=== PATIENT | female | born 1965 | race Hispanic/Latino ===

== ENCOUNTER 2022-04-29 10:07 | Emergency (ER) | payer MEDICARE ==
[2022-04-29] MEDS ORDERED: HALOPERIDOL LACTATE 5 MG/1 ML INJ IM PRN (11:37)
[2022-04-29] MEDS ORDERED: LORazepam 2 MG/ML VIAL IM PRN (11:37)
--- NOTE | 2022-04-29 11:55 | Emergency Department Report ---
ED General Adult HPI - General Chief complaint: Medical Clearance Stated complaint: I am fine, who are you? Time Seen by Provider: 04/29/22 11:14 Source: patient, EMS ( EMS documentation not available at time of chart dictation ), RN notes reviewed, old records reviewed Mode of arrival: Stretcher Limitations: Other (Patient is disorganized and psychotic) - History of Present Illness Initial comments: The patient was evaluated in the emergency department for symptoms described in the history of present illness. He/she was evaluated in the context of the global COVID-19 pandemic, which necessitated consideration that the patient might be at risk for infection with the virus that causes COVID-19. Institutional protocols and algorithms that pertain to the evaluation of patients at risk for COVID-19 are in a state of rapid change based on informa tion released by regulatory bodies including the CDC and federal and state organizations. These policies and algorithms were followed during the patient's care in the emergency department. Please note that these policies, procedures and recommendations changed on a rapid basis. This is a 57-year-old female. The patient is brought to the hospital today by emergency medical services with a signed 1013. As per signed 1013, the patient was noted to be making homicidal threats towards hospice home care coordinator, other residence, and the mobile crisis staff. Severe paranoia and hallucinations. Believes matilde connelly is 18. Not on her medications. The patient was reportedly agitated, and was sedated prior to my evaluation. The patient states that her hips are broken and that she has multiple broken bones. The patient states that she is not currently homicidal or suicidal. The patient first tells me that she lives at home with family. She then tells me that she lives in a custodial. The patient denies headache, neck pain, chest pain, and currently abdominal pain. She denies urinary symptoms. -: This morning - Related Data Home Medications Medication Instructions Recorded Confirmed Last Taken Unobtainable 04/29/22 04/29/22 Unknown Allergies Allergy/AdvReac Type Severity Reaction Status Date / Time No Known Allergies Allergy Verified 04/29/22 11:13 ED Review of Systems ROS: Stated complaint: AMS Other details as noted in HPI Constitutional: denies: fever Eyes: denies: eye discharge ENT: denies: epistaxis Respiratory: denies: cough Cardiovascular: denies: chest pain Gastrointestinal: denies: abdominal pain Musculoskeletal: back pain, myalgia Psychiatric: denies: homicidal thoughts, suicidal thoughts ED Past Medical Hx - Medications Home Medications: Home Medications Medication Instructions Recorded Confirmed Last Taken Type Unobtainable 04/29/22 04/29/22 Unknown History ED Physical Exam - General Limitations: Other (Patient is disorganized and a poor historian) General appearance: in no apparent distress, obese, other (The patient is listless but arousable) - Head Head exam: Present: atraumatic, normocephalic - Eye Eye exam: Present: normal appearance, EOMI. Absent: nystagmus - ENT ENT exam: Present: normal exam, normal orophraynx, mucous membranes moist, normal external ear exam - Neck Neck exam: Present: normal inspection, full ROM. Absent: tenderness, meningismus - Respiratory Respiratory exam: Present: normal lung sounds bilaterally. Absent: respiratory distress, wheezes, rales, rhonchi, stridor, decreased breath sounds - Cardiovascular Cardiovascular Exam: Present: regular rate, normal rhythm, normal heart sounds. Absent: bradycardia, tachycardia, irregular rhythm, systolic murmur, diastolic murmur, rubs, gallop - GI/Abdominal GI/Abdominal exam: Present: soft. Absent: distended, tenderness, guarding, rebound, rigid, pulsatile mass - Extremities Exam Extremities exam: Present: normal inspection, full ROM, other (2+ pulses noted in the bilateral upper and lower extremities. There is no palpable cord. negative Homans sign. Muscular compartments are soft. The pelvis is stable.). Absent: pedal edema, calf tenderness - Back Exam Back exam: Present: normal inspection. Absent: tenderness, CVA tenderness (R), CVA tenderness (L), paraspinal tenderness, vertebral tenderness - Neurological Exam Neurological exam: Present: alert, oriented X3, other (No facial droop. Tongue midline. Extraocular movements intact bilaterally. Facial sensation intact to light touch in V1, V2, V3 distribution bilaterally. 5 and a 5 strength in 4 extremities. Sensation intact to light touch in 4 extremities.) - Psychiatric Psychiatric exam: Present: flat affect. Absent: homicidal ideation, suicidal ideation - Skin Skin exam: Present: warm, dry, intact, normal color. Absent: rash ED Course Vital Signs 04/29/22 04/29/22 04/29/22 10:18 18:47 19:38 Temperature 97.1 F L Pulse Rate 80 62 Respiratory 18 18 Rate Blood Pressure 132/77 148/91 [Left] O2 Sat by Pulse 100 97 99 Oximetry ED Medical Decision Making - Lab Data Result diagrams: 04/29/22 12:26 04/29/22 12:26 Vital Signs 04/29/22 10:18 Temperature 97.1 F L Pulse Rate 80 Respiratory 18 Rate Blood Pressure 132/77 [Left] O2 Sat by Pulse 100 Oximetry Lab Results 04/29/22 04/29/22 04/29/22 Range/Units 12:18 12:26 12:26 WBC (4.5-11.0) K/mm3 RBC (3.65-5.03) M/mm3 Hgb (10.1-14.3) gm/dl Hct (30.3-42.9) % MCV (79-97) fl MCH (28-32) pg MCHC (30-34) % RDW (13.2-15.2) % Plt Count (140-440) K/mm3 Sodium 139 (137-145) mmol/L Potassium 4.2 (3.6-5.0) mmol/L Chloride 103.2 (98-107) mmol/L Carbon Dioxide 25 (22-30) mmol/L Anion Gap 15 mmol/L BUN 8 (7-17) mg/dL Creatinine 0.6 (0.6-1.2) mg/dL Estimated GFR > 60 ml/min BUN/Creatinine Ratio 13 % Glucose 272 H (65-100) mg/dL Calcium 9.4 (8.4-10.2) mg/dL Magnesium 2.00 (1.7-2.3) mg/dL Total Bilirubin 0.30 (0.1-1.2) mg/dL AST 20 (5-40) units/L ALT 25 (7-56) units/L Alkaline Phosphatase 55 (35-129) units/L Total Creatine Kinase 316 H (30-135) units/L Total Protein 6.9 (6.3-8.2) g/dL Albumin 4.4 (3.9-5) g/dL Albumin/Globulin Ratio 1.8 % TSH 3.170 (0.270-4.200) mlU/mL Salicylates (2.8-20.0) mg/dL Acetaminophen (10.0-30.0) ug/mL Phenytoin (10.0-20.0) ug/mL Valproic Acid (50-100) ug/mL [place] (0.0-1.2) mmol/L Plasma/Serum Alcohol (0-0.07) % 04/29/22 04/29/22 04/29/22 Range/Units 12:26 12:26 12:26 WBC (4.5-11.0) K/mm3 RBC (3.65-5.03) M/mm3 Hgb (10.1-14.3) gm/dl Hct (30.3-42.9) % MCV (79-97) fl MCH (28-32) pg MCHC (30-34) % RDW (13.2-15.2) % Plt Count (140-440) K/mm3 Sodium (137-145) mmol/L Potassium (3.6-5.0) mmol/L Chloride (98-107) mmol/L Carbon Dioxide (22-30) mmol/L Anion Gap mmol/L BUN (7-17) mg/dL Creatinine (0.6-1.2) mg/dL Estimated GFR ml/min BUN/Creatinine Ratio % Glucose (65-100) mg/dL Calcium (8.4-10.2) mg/dL Magnesium (1.7-2.3) mg/dL Total Bilirubin (0.1-1.2) mg/dL AST (5-40) units/L ALT (7-56) units/L Alkaline Phosphatase (35-129) units/L Total Creatine Kinase (30-135) units/L Total Protein (6.3-8.2) g/dL Albumin (3.9-5) g/dL Albumin/Globulin Ratio % TSH (0.270-4.200) mlU/mL Salicylates < 0.3 L (2.8-20.0) mg/dL Acetaminophen 5.0 L (10.0-30.0) ug/mL Phenytoin 0.8 L (10.0-20.0) ug/mL Valproic Acid 4.3 L (50-100) ug/mL [place] 0.1 (0.0-1.2) mmol/L Plasma/Serum Alcohol < 0.01 (0-0.07) % 04/29/22 04/29/22 Range/Units 12:26 12:26 WBC 4.6 (4.5-11.0) K/mm3 RBC 4.44 (3.65-5.03) M/mm3 Hgb 13.3 (10.1-14.3) gm/dl Hct 40.2 (30.3-42.9) % MCV 91 (79-97) fl MCH 30 (28-32) pg MCHC 33 (30-34) % RDW 13.5 (13.2-15.2) % Plt Count 184 (140-440) K/mm3 Sodium (137-145) mmol/L Potassium (3.6-5.0) mmol/L Chloride (98-107) mmol/L Carbon Dioxide (22-30) mmol/L Anion Gap mmol/L BUN (7-17) mg/dL Creatinine (0.6-1.2) mg/dL Estimated GFR ml/min BUN/Creatinine Ratio % Glucose (65-100) mg/dL Calcium (8.4-10.2) mg/dL Magnesium (1.7-2.3) mg/dL Total Bilirubin (0.1-1.2) mg/dL AST (5-40) units/L ALT (7-56) units/L Alkaline Phosphatase (35-129) units/L Total Creatine Kinase (30-135) units/L Total Protein (6.3-8.2) g/dL Albumin (3.9-5) g/dL Albumin/Globulin Ratio % TSH 3.170 (0.270-4.200) mlU/mL Salicylates (2.8-20.0) mg/dL Acetaminophen (10.0-30.0) ug/mL Phenytoin (10.0-20.0) ug/mL Valproic Acid (50-100) ug/mL [place] (0.0-1.2) mmol/L Plasma/Serum Alcohol (0-0.07) % - EKG Data -: EKG Interpreted by Or EKG shows normal: sinus rhythm Rate: normal - EKG Data When compared to previous EKG there are: previous EKG unavailable 04/29/22 14:25 The EKG is interpreted at 10: 16 Sinus rhythm, 78 bpm. Left axis deviation. Left anterior fascicular block. QTc 4 6 0 ms. Incomplete right bundle branch block. Motion artifact. This is an abnormal EKG. This is not a STEMI - Radiology Data Radiology results: report reviewed, image reviewed CHEST 2 VIEWS INDICATION / CLINICAL INFORMATION: Chest Pain. COMPARISON: 12/30/2021 FINDINGS: SUPPORT DEVICES: None. HEART / MEDIASTINUM: No significant abnormality. LUNGS / PLEURA: No significant pulmonary or pleural abnormality. No pneumothorax. Lungs remain mildly hyperexpanded. ADDITIONAL FINDINGS: No significant additional findings. IMPRESSION: 1. No acute findings. Signer Name: Leon Bond MD Signed: 04/29/2022 9:46 AM Workstation Name: [id number] - Medical Decision Making Differential diagnosis, including but not limited to: Psychosis, medical clearance for psychiatric placement Assessment and plan: 57-year-old female, who is afebrile, with reassuring vital signs, with a benign and unremarkable physical examination, who arrives with a signed 1013, for psychosis, agitated and homicidal behavior. Her laboratory studies are essentially unremarkable. Her EKG is unremarkable and a chest x-ray is unremarkable. A urinalysis and COVID swab are pending at this time. I have requested that nursing team reconcile home medications. Patient has a known history of psychiatric disease. The emergency room will follow along as the patient provides a urine sample and COVID swab. As needed holding medications are ordered. At this point in time, this patient does not appear to have an immediate medical contraindication to psychiatric admission, evaluation, consultation and placement. Currently awaiting psychiatric input and recommendations. Abdomen is soft and benign. There is no significant bony tenderness. The patient is ambulatory with a steady gait. Critical care attestation.: If time is entered above; I have spent that time in minutes in the direct care of this critically ill patient, excluding procedure time. ED Disposition Clinical Impression: Psychosis, Medical clearance for psychiatric admission Disposition: 63 [facility] Is pt being admited?: No Does the pt Need Aspirin: No Condition: Good
[2022-04-29 12:44] LABS: Hematocrit 40.2 % (30.3-42.9); Hemoglobin 13.3 gm/dl (10.1-14.3); Mean Corpuscular HGB Conc 33 % (30-34); Mean Corpuscular Volume 91 fl (79-97); Platelet Count 184 K/mm3 (140-440); Red Blood Count 4.44 M/mm3 (3.65-5.03); Red Cell Distribution Width 13.5 % (13.2-15.2)
--- NOTE | 2022-04-29 12:55 | XRay Report ---
CHEST 1 VIEW 04/29/2022 12:11 PM INDICATION / CLINICAL INFORMATION: Medical Clearance Psych. COMPARISON: 09/24/2018 FINDINGS: SUPPORT DEVICES: None. HEART / MEDIASTINUM: No significant abnormality. LUNGS / PLEURA: No significant pulmonary or pleural abnormality. No pneumothorax. ADDITIONAL FINDINGS: No significant additional findings. IMPRESSION: 1. No acute findings. Signer Name: Xu Carrera Jr, MD Signed: 04/29/2022 12:50 PM Workstation Name: [id number]
[2022-04-29 13:01] LABS: Alanine Aminotransferase 25 units/L (7-56); Albumin 4.4 g/dL (3.9-5); Blood Urea Nitrogen 8 mg/dL (7-17); Calcium 9.4 mg/dL (8.4-10.2); Hemolysis Index 4
[2022-04-29 13:22] LABS: BUN/Creatinine Ratio 13
[2022-04-29 18:28] LABS: Amphetamine Screen,Urine Negative; Benzodiazepines Screen,Urine Negative; Cannabinoid Screen,Urine Negative; Cocaine Screen,Urine Negative; Methadone Screen,Urine Negative; Opiate Screen,Urine Negative
[2022-04-29 19:56] LABS: Bilirubin,Urine Negative (Negative); Blood,Urine Negative (Negative); Color,Urine Straw (Yellow); Protein,Urine <15 mg/dL mg/dL (Negative); Urobilinogen,Urine < 2.0 mg/dL (<2.0)
--- NOTE | 2022-04-30 09:51 | Consultation ---
History of Present Illness - Reason for Consult Consult date: 04/30/22 Reason for consult: agitation - History of Present Psychiatric Illness HPI: This is a 57-year-old female. The patient is brought to the hospital today by emergency medical services with a signed 1013. As per signed 1013, the patient was noted to be making homicidal threats towards home specialist, other residence, and the mobile crisis staff. Severe paranoia and hallucinations. Believes everyone is 18. Not on her medications. The patient was seen today. She is sitting in a chair in the greco with her eyes closed. She does not respond to any questions. The staff says the patient was trying to fight security and found in the greco naked. The nurse says she was medicated with Lorazepam. I was unable to engage the patient in the evaluation. PAST PSYCHIATRIC HISTORY: Unable to assess PAST MEDICAL HISTORY: None reported Family Psychiatric History: None reported or documented SOCIAL HISTORY Unable to assess REVIEW OF SYSTEMS Unable to assess MENTAL STATUS EXAMINATION Unable to assess Diagnoses: Schizoaffective Disorder Treatment Plan 1013 Olanzapine 7.5mg po daily Trazodone 50mg po qhs Depakote DR 125mg po BID Sitter: per primary Medical: Per primary Disposition: Recommend acute psychiatric inpatient treatment Will follow. Thanks Case staffed by Dr. Miranda Medications and Allergies Allergies Allergy/AdvReac Type Severity Reaction Status Date / Time No Known Allergies Allergy Verified 04/29/22 11:13 Home Medications Medication Instructions Recorded Confirmed Last Taken Type Unobtainable 04/29/22 04/29/22 Unknown History Active Meds: Active Medications Haloperidol Lactate (Haloperidol Lactate 5 Mg/1 Ml Inj) 5 mg IM Q6HR PRN PRN Reason: Agitation Lorazepam (Lorazepam 2 Mg/Ml Vial) 2 mg IM Q4HR PRN PRN Reason: Agitation Last Admin: 04/30/22 07:38 Dose: 2 mg Mental Status Exam - Vital signs Last Vital Signs Temp 98.7 F 04/30/22 09:40 Pulse 96 H 04/30/22 09:40 Resp 18 04/30/22 09:40 BP 124/69 04/30/22 09:40 Pulse Ox 95 04/30/22 09:42 Results Result Diagrams: 04/29/22 12:26 04/29/22 12:26 Abnormal lab results 04/29/22 04/29/22 04/29/22 Range/Units 12:18 12:26 12:26 Glucose 272 H (65-100) mg/dL Total Creatine Kinase 316 H (30-135) units/L Urine WBC (Auto) (0.0-6.0) /HPF Salicylates < 0.3 L (2.8-20.0) mg/dL Acetaminophen (10.0-30.0) ug/mL Phenytoin 0.8 L (10.0-20.0) ug/mL Valproic Acid 4.3 L (50-100) ug/mL 04/29/22 04/29/22 Range/Units 12:26 19:38 Glucose (65-100) mg/dL Total Creatine Kinase (30-135) units/L Urine WBC (Auto) 9.0 H (0.0-6.0) /HPF Salicylates (2.8-20.0) mg/dL Acetaminophen 5.0 L (10.0-30.0) ug/mL Phenytoin (10.0-20.0) ug/mL Valproic Acid (50-100) ug/mL All other labs normal.
--- NOTE | 2022-04-30 11:56 | Event Note ---
Date: 04/30/22 Patient reassessed today and is nonverbal sitting in a chair. Does not respond to questioning. We will keep [address].
[2022-04-30] MEDS: DIVALPROEX DR 125 MG TAB PO SCH ×2 (14:02→22:14)
[2022-04-30 21:54] VITALS: BP 156/90
[2022-04-30] MEDS ORDERED: traZODone 50 MG TAB PO SCH (22:00)
--- NOTE | 2022-05-01 17:14 | Electrocardiograph Report ---
[facility] Test Date: 2022-04-29 Test Time: 10:16:39 Pat Name: PIA ROTH Department: Room: Gender: F Roll Builder: NURSE : 1965 Requested By: BARBARA ALBERTO Order Number: [id number] Reading MD: Minnie Zazueta Measurements Intervals [place] Rate: 78 P: 54 ID: [id number] QRS: -39 QRSD: 92 T: 4 QT: 402 QTc: 460 Interpretive Statements Sinus rhythm Left axis deviation Anteroseptal infarct, age indeterminate No previous ECG available for comparison Electronically Signed On 05-01-2022 17:13:35 EDT by Minnie Zazueta
== END 2022-04-30 22:23 ==
LOC: ED 10:07 → EEVIPCON 10:07 → ED 04-30 22:23
DX: F29 Unspecified psychosis not due to a substance or known physiological condition (principal); Z13.30 Encounter for screening examination for mental health and behavioral disorders, unspecified; Z20.822 Contact with and (suspected) exposure to COVID-19
CPT/HCPCS: 36415; 71045; 80053; 80164; 80178; 80185; 80307; 81001; 82550; 82962; 83735; 84443; 85027; 87086; 93005; 96372; 99285; J2060; U0003; 80320; G0480

== ENCOUNTER 2022-04-30 14:15 | Inpatient (IN) | payer MEDICARE ==
[2022-05-01 06:25] LABS: Basophils % (Auto) 1.2 % (0.0-1.8); Eosinophils # (Auto) 0.1 K/mm3 (0.0-0.4); Eosinophils % (Auto) 2.2 % (0.0-4.3); Hematocrit 40.9 % (30.3-42.9); Hemoglobin 13.4 gm/dl (10.1-14.3); Lymphocytes # (Auto) 1.4 K/mm3 (1.2-5.4); Lymphocytes % (Auto) 35.4 % (13.4-35.0); Mean Corpuscular HGB Conc 33 % (30-34); Mean Corpuscular Volume 91 fl (79-97); Monocytes # (Auto) 0.4 K/mm3 (0.0-0.8); Monocytes % (Auto) 8.9 % (0.0-7.3); Platelet Count 172 K/mm3 (140-440); Red Blood Count 4.51 M/mm3 (3.65-5.03); Red Cell Distribution Width 13.3 % (13.2-15.2)
[2022-05-01 06:46] LABS: Alanine Aminotransferase 27 units/L (7-56); Albumin 4.3 g/dL (3.9-5); Blood Urea Nitrogen 11 mg/dL (7-17); Calcium 8.9 mg/dL (8.4-10.2); Chol/HDL Ratio 3.89 %; HDL Cholesterol 37 mg/dL (40-59); Hemolysis Index 10; LDL Cholesterol,Direct 96 mg/dL (50-130)
[2022-05-01 06:48] LABS: BUN/Creatinine Ratio 18
[2022-05-01] MEDS: INSULIN LISPRO 100 UNIT/ML SUB-Q SCH ×4 (07:30→21:38)
--- NOTE | 2022-05-01 12:19 | History and Physical Report ---
GP History & Physical - History of Present Illness Date of admission: 05/01/22 Date of Examination: 05/01/22 Reason for Admission: Danger to self, Impaired reality testing, Psychopathology interference, Unable to care for self History of Present Illness: HPI 57 year old female with past hx of Bipolar and schizophrenia. Patients states that she is at the hospital because " God put me here". Patient was richardson hernandez in a halfway prior to hospitalization. Patient states that she hears the voices of "God, [place],and the Holy spirit" telling her that they "Love me". She states that the voices have increased in the last couple of days and she has been refusing to take her medications because" God doesn't want me to take them" and the medication was causing her to gain weight. Patient denies SI/HI at this time. Patient states that her appetite and sleep have been good. Patient states that she had been on a number of anti psychotics and mood stabilizers but was not a good historian of what she was currently on. assisted will be called for current medication list. PAST PSYCHIATRIC HISTORY: Diagnoses: Schizophrenia, Bipolar Suicide attempts or Self-harm behavior. No Prior psychiatric hospitalizations: Yes Substance Abuse history:Denies Previous psychiatric medications tried: Yes Outpatient treatment: Yes PAST MEDICAL HISTORY: Family Psychiatric History None reported or documented SOCIAL HISTORY Marital Status: Living Arrangements: assisted Employment Status: Access to guns/weapons:No Education: History of Abuse: Yes Legal History: Denies REVIEW OF SYSTEMS Constitutional: Negative for weight loss ENT: Negative for stridor Respiratory: Negative for cough or hemoptysis All other systems reviewed and are negative Diagnoses: Schizophrenia, Bipolar Treatment Plan Patient will be admitted for inpatient psychiatric evaluation, medication adjustment and close monitoring The patient's behavior, mood, sleep and appetite will be closely monitored. Patient will be enrolled in individual and group therapeutic sessions and encouraged to attend. Patient will be provided with a safe and structured environment. Patient's physical health needs will be addressed by the Hospitalist. Hospitalist Consulted Labs including CBC, CMP, Lipid profile and Hemoglobin A1C ordered Social Assessment will be completed and the Application Processor will work with patient and family to ensure a suitable and safe disposition Medication adjustment will be made as clinically indicated Usual Wellness Congregation/Preservation: - Start Trazodone 50 mg po QHS The patient agreed on the treatment plan, understood the risk, benefit, alternative treatment, potential consequence of no treatment, and gave informed consent. Legal Status: Involuntary Patient Problems: Current Active Problems Advance care planning (Acute) Bipolar 1 disorder (Acute) Diabetes (Acute) HTN (hypertension) (Acute) Preventative health care (Acute) Schizophrenia (Acute) Reaction to Hospitalization: Accepting Medications and Allergies Allergies Allergy/AdvReac Type Severity Reaction Status Date / Time No Known Allergies Allergy Verified 04/29/22 11:13 Home Medications Medication Instructions Recorded Confirmed Last Taken Type Unobtainable 04/29/22 04/29/22 Unknown History Active Meds: Active Medications Insulin Human Lispro (Insulin Lispro 100 Unit/Ml) 0 unit SUB-Q ACHS DAGMAR; Protocol Results - Results Labs/Vitals: Laboratory Last Values WBC 4.1 K/mm3 (4.5-11.0) L 05/01/22 06:16 RBC 4.51 M/mm3 (3.65-5.03) 05/01/22 06:16 Hgb 13.4 gm/dl (10.1-14.3) 05/01/22 06:16 Hct 40.9 % (30.3-42.9) 05/01/22 06:16 MCV 91 fl (79-97) 05/01/22 06:16 MCH 30 pg (28-32) 05/01/22 06:16 MCHC 33 % (30-34) 05/01/22 06:16 RDW 13.3 % (13.2-15.2) 05/01/22 06:16 Plt Count 172 K/mm3 (140-440) 05/01/22 06:16 Lymph % (Auto) 35.4 % (13.4-35.0) H 05/01/22 06:16 [place] % (Auto) 8.9 % (0.0-7.3) H 05/01/22 06:16 Eos % (Auto) 2.2 % (0.0-4.3) 05/01/22 06:16 Baso % (Auto) 1.2 % (0.0-1.8) 05/01/22 06:16 Lymph # (Auto) 1.4 K/mm3 (1.2-5.4) 05/01/22 06:16 [place] # (Auto) 0.4 K/mm3 (0.0-0.8) 05/01/22 06:16 Eos # (Auto) 0.1 K/mm3 (0.0-0.4) 05/01/22 06:16 Baso # (Auto) 0.0 K/mm3 (0.0-0.1) 05/01/22 06:16 Seg Neutrophils % 52.3 % (40.0-70.0) 05/01/22 06:16 Seg Neutrophils # 2.1 K/mm3 (1.8-7.7) 05/01/22 06:16 Sodium 138 mmol/L (137-145) 05/01/22 06:16 Potassium 3.8 mmol/L (3.6-5.0) 05/01/22 06:16 Chloride 103.7 mmol/L (98-107) 05/01/22 06:16 Carbon Dioxide 24 mmol/L (22-30) 05/01/22 06:16 Anion Gap 14 mmol/L 05/01/22 06:16 BUN 11 mg/dL (7-17) 05/01/22 06:16 Creatinine 0.6 mg/dL (0.6-1.2) 05/01/22 06:16 Estimated GFR > 60 ml/min 05/01/22 06:16 BUN/Creatinine Ratio 18 % 05/01/22 06:16 Glucose 206 mg/dL (65-100) H 05/01/22 06:16 POC Glucose 221 mg/dL (70-105) H 05/01/22 11:26 Hemoglobin A1c 9.1 % (4-6) H 05/01/22 06:16 Calcium 8.9 mg/dL (8.4-10.2) 05/01/22 06:16 Total Bilirubin 0.60 mg/dL (0.1-1.2) 05/01/22 06:16 AST 20 units/L (5-40) 05/01/22 06:16 ALT 27 units/L (7-56) 05/01/22 06:16 Alkaline Phosphatase 47 units/L (35-129) 05/01/22 06:16 Total Protein 6.4 g/dL (6.3-8.2) 05/01/22 06:16 Albumin 4.3 g/dL (3.9-5) 05/01/22 06:16 Albumin/Globulin Ratio 2.0 % 05/01/22 06:16 Triglycerides 142 mg/dL (2-149) 05/01/22 06:16 Cholesterol 144 mg/dL (50-199) 05/01/22 06:16 LDL Cholesterol Direct 96 mg/dL (50-130) 05/01/22 06:16 HDL Cholesterol 37 mg/dL (40-59) L 05/01/22 06:16 Cholesterol/HDL Ratio 3.89 % 05/01/22 06:16 TSH 0.672 mlU/mL (0.270-4.200) 05/01/22 06:16 Last Vital Signs Temp 99.3 F 05/01/22 09:16 Pulse 79 05/01/22 09:16 Resp 18 05/01/22 09:16 BP 131/75 05/01/22 09:16 Pulse Ox 92 05/01/22 09:16 Physical Examination - Constitutional Vitals: Vital Signs Temp Pulse Resp BP Pulse Ox 99.3 F 79 18 131/75 92 05/01/22 09:16 05/01/22 09:16 05/01/22 09:16 05/01/22 09:16 05/01/22 09:16 Temperature -Last 24 Hours Temperature 99.3 F Temperature 98.5 F Mental Status Exam - Vital signs Last Vital Signs Temp 99.3 F 05/01/22 09:16 Pulse 79 05/01/22 09:16 Resp 18 05/01/22 09:16 BP 131/75 05/01/22 09:16 Pulse Ox 92 05/01/22 09:16 Physician Certification - Certification Statement Physician Certification Statement: This is an acknowledgement statement that PIA ROTH is a 57 year old F who requires inpatient psychiatric admission for treatment which could reasonably be expected to improve the patient's condition for Estimated period of time patient will need to remain in the hospital: [ ] Plan for post-hospital care: [ ]
--- NOTE | 2022-05-01 13:09 | Consultation ---
History of Present Illness - Reason for Consult Consult date: 05/01/22 Medical Management Requesting physician: JENNIFER KUMAR - History of Present Illness 57 YO Female with Obesity Hypoventilation Syndrome, HTN, DM, Bipolar Disorder, Schizophrenia, Schizoaffective Disorder Consult placed by Dr. Kumar for medical management. Patient seen and evaluated in the recreation room. Patient denies fever, chills, chest pain, palpitation, productive cough, skin rash, rec ent contact, known exposure to COVID-19. Patient appears to be at baseline level of cognition and function. Past History Past Medical History: diabetes, hypertension, other (see hpi) Past Surgical History: Social history: single. denies: smoking, alcohol abuse, prescription drug abuse Family history: diabetes, hypertension Medications and Allergies Allergies Allergy/AdvReac Type Severity Reaction Status Date / Time No Known Allergies Allergy Verified 04/29/22 11:13 Home Medications Medication Instructions Recorded Confirmed Last Taken Type Unobtainable 04/29/22 04/29/22 Unknown History Active Meds: Active Medications Insulin Human Lispro (Insulin Lispro 100 Unit/Ml) 0 unit SUB-Q ACHS [facility]; Protocol Review of Systems Constitutional: no weight loss, no weight gain, no fever, no chills Ears, nose, mouth and throat: no ear pain, no ear discharge, no decreased hearing, no nose pain, no nasal discharge Breasts: no change in shape, no swelling, no mass Cardiovascular: no chest pain, no orthopnea, no rapid/irregular heart beat, no edema, no syncope Respiratory: no cough, no excessive sputum, no hemoptysis, no shortness of breath, no dyspnea on exertion Gastrointestinal: no nausea, no vomiting Genitourinary Female: no pelvic pain, no flank pain, no dysuria, no urinary frequency, no urgency Rectal: no pain, no incontinence, no bleeding Musculoskeletal: no neck stiffness, no neck pain, no arm numbness/tingling Integumentary: no rash, no pruritis, no sores Neurological: no head injury, no transient paralysis, no parathesias, no numbness, no seizures, no syncope Psychiatric: irritability, mood swings, no disorientation, no hallucinations Endocrine: no cold intolerance, no heat intolerance, no excessive thirst, no polydipsia, no excessive sweating Hematologic/Lymphatic: no easy bruising, no easy bleeding, no lymphadenopathy Allergic/Immunologic: no urticaria, no angioedema Exam - Constitutional Vitals: Temp Pulse Resp BP Pulse Ox 99.3 F 79 18 131/75 92 05/01/22 09:16 05/01/22 09:16 05/01/22 09:16 05/01/22 09:16 05/01/22 09:16 General appearance: Present: obese - EENT Eyes: Present: PERRL ENT: hearing intact, clear oral mucosa - Neck Neck: Present: supple, normal ROM - Respiratory Respiratory effort: normal Respiratory: bilateral: CTA - Cardiovascular Heart Sounds: Present: S1 & S2. Absent: rub, click - Extremities Extremities: pulses symmetrical, No edema Peripheral Pulses: within normal limits - Abdominal General gastrointestinal: Present: soft, non-tender, non-distended, normal bowel sounds Female genitourinary: Present: normal - Integumentary Integumentary: Present: clear, warm, dry - Musculoskeletal Musculoskeletal: gait normal, strength equal bilaterally - Psychiatric Psychiatric: cooperative - Neurologic Neurologic: CNII-XII intact, moves all extremities Results - Labs CBC & Chem 7: 05/01/22 06:16 05/01/22 06:16 Labs: Abnormal lab results 05/01/22 05/01/22 05/01/22 Range/Units 06:16 06:16 06:16 WBC 4.1 L (4.5-11.0) K/mm3 Lymph % (Auto) 35.4 H (13.4-35.0) % [place] % (Auto) 8.9 H (0.0-7.3) % Glucose 206 H (65-100) mg/dL POC Glucose (70-105) mg/dL Hemoglobin A1c 9.1 H (4-6) % HDL Cholesterol 37 L (40-59) mg/dL 05/01/22 05/01/22 Range/Units 06:16 11:26 WBC (4.5-11.0) K/mm3 Lymph % (Auto) (13.4-35.0) % [place] % (Auto) (0.0-7.3) % Glucose (65-100) mg/dL POC Glucose 206 H 221 H (70-105) mg/dL Hemoglobin A1c (4-6) % HDL Cholesterol (40-59) mg/dL Assessment and Plan - Patient Problems (1) HTN (hypertension) Current Visit: Yes Status: Acute Qualifiers: Hypertension type: primary hypertension Qualified Code(s): I10 - Essential (primary) hypertension Plan to address problem: Monitor blood pressure every shift, continue medical management. (2) Diabetes Current Visit: Yes Status: Acute Plan to address problem: Consistent carbohydrate diet, Accu-Chek, insulin protocol, hypoglycemia protocol. (3) Bipolar 1 disorder Current Visit: Yes Status: Acute Plan to address problem: Continue medical management, supportive care, behavior change counseling, (4) Schizophrenia Current Visit: Yes Status: Acute Qualifiers: Schizophrenia type: unspecified Qualified Code(s): F20.9 - Schizophrenia, unspecified Plan to address problem: Continue medical management, supportive care. (5) Advance care planning Current Visit: Yes Status: Acute Plan to address problem: Disease education done, care plan discussed, diagnoses discussed, prognosis discussed, patient is full code. Patient acknowledges understanding and agreement with care plan, +30 minutes. (6) Preventative health care Current Visit: Yes Status: Acute Plan to address problem: Patient counseled regarding balanced diet, increase physical activity at discharge, consistent carbohydrate diet, weight reduction, patient instructed to follow-up with primary care physician regarding all age and risk factor appropriate screening test. +30 minutes.
[2022-05-01] MEDS ORDERED: traZODone 50 MG TAB PO PRN (19:25)
[2022-05-01] MEDS: risperiDONE 1 MG TAB PO SCH (21:38)
[2022-05-01] MEDS: traZODone 100 MG TAB PO SCH (21:38)
[2022-05-01] MEDS: PROPRANOLOL 10 MG TAB PO SCH (21:38)
[2022-05-01] MEDS ORDERED: DOXEPIN 10 MG CAP PO SCH (22:00)
[2022-05-02] MEDS: INSULIN LISPRO 100 UNIT/ML SUB-Q SCH ×4 (07:30→21:21)
[2022-05-02] MEDS: metFORMIN 500 MG TAB PO SCH ×2 (08:00→16:46)
[2022-05-02] MEDS: buPROPion XL 150 MG TAB PO SCH (10:30)
[2022-05-02] MEDS: DIVALPROEX DR 500 MG TAB PO SCH (10:30)
[2022-05-02] MEDS: risperiDONE 1 MG TAB PO SCH ×3 (10:30→22:24)
[2022-05-02] MEDS: PROPRANOLOL 10 MG TAB PO SCH ×2 (10:30→21:21)
[2022-05-02] MEDS: FLUoxetine 20 MG CAP PO SCH (10:30)
[2022-05-02] MEDS: HALOPERIDOL LACTATE 5 MG/1 ML INJ IM PRN (16:40)
[2022-05-02] MEDS: LORazepam 2 MG/ML VIAL IM PRN (16:42)
--- NOTE | 2022-05-02 18:06 | Progress Note ---
Subjective Date of service: 05/02/22 Principal diagnosis: Bipolar, schizophrenia Subjective Comment: Date of service: 05/02/22 Principal diagnosis: Bipolar, schizophrenia Subjective Comment: Patient seen today in her room. Patient states that she will not take her medications because "Tyrone told me not to". Patient is also refusing to have her blood sugar checked, and has been aggressive towards the staff. When asked why she wasnt taking her meds she replied " Not taking my medication satan". After that she refused to answer any more questions. No new changes at this time. Medications and Allergies Allergies Allergy/AdvReac Type Severity Reaction Status Date / Time No Known Allergies Allergy Verified 04/29/22 11:13 Home Medications Medication Instructions Recorded Confirmed Last Taken Type Bupropion HCl [Wellbutrin XL] 300 mg PO QAM 05/01/22 05/01/[address] [DepaKOTE DR] 500 mg PO QA 05/01/22 05/01/22 Unknown History Doxepin HCl [Silenor] 6 mg PO QHS 05/01/22 05/01/22 Unknown History FLUoxetine [PROzac] 20 mg PO QDAY 05/01/22 05/01/22 Unknown History diphenhydrAMINE HCL [Allergy] 25 mg PO HS 05/01/22 05/01/22 Unknown History metFORMIN [Glucophage] 500 mg PO BID 05/01/22 05/01/22 Unknown History propranoloL [Inderal] 10 mg PO BID 05/01/22 05/01/22 Unknown History risperiDONE [RisperDAL] 2 mg PO BID 05/01/22 05/01/22 Unknown History traZODone [Desyrel] 100 mg PO QHS 05/01/22 05/01/22 Unknown History Active Meds: Active Medications Bupropion HCl (Bupropion Xl 150 Mg Tab) 300 mg PO QDAY [facility] Last Admin: 05/02/22 10:30 Dose: Not Given Divalproex Sodium (Divalproex Dr 500 Mg Tab) 500 [facility] [place] Last Admin: 05/02/22 10:30 Dose: Not Given Fluoxetine HCl (Fluoxetine 20 Mg Cap) 20 mg PO QDAY [facility] Last Admin: 05/02/22 10:30 Dose: Not Given Haloperidol Lactate (Haloperidol Lactate 5 Mg/1 Ml Inj) 5 mg IM Q6H PRN PRN Reason: Agitation Last Admin: 05/02/22 16:40 Dose: 5 mg Insulin Human Lispro (Insulin Lispro 100 Unit/Ml) 0 unit SUB-Q ACHS [facility]; Protocol Last Admin: 05/02/22 16:46 Dose: Not Given Lorazepam (Lorazepam 2 Mg/Ml Vial) 2 mg IM Q6H PRN PRN Reason: Agitation Last Admin: 05/02/22 16:42 Dose: 2 mg Metformin HCl (Metformin 500 Mg Tab) 500 mg PO BIDDIAB [facility] Last Admin: 05/02/22 16:46 Dose: Not Given Propranolol HCl (Propranolol 10 Mg Tab) 10 mg PO Q12HR [facility] Last Admin: 05/02/22 10:30 Dose: Not Given Risperidone (Risperidone 1 Mg Tab) 2 mg PO BID [facility] Last Admin: 05/02/22 10:30 Dose: Not Given Trazodone HCl (Trazodone 50 Mg Tab) 50 mg PO QHS PRN PRN Reason: Anxiety Trazodone HCl (Trazodone 100 Mg Tab) 100 mg PO QHS [facility] Last Admin: 05/01/22 21:38 Dose: Not Given Results - Results Labs/Vitals: Laboratory Last Values WBC 4.1 K/mm3 (4.5-11.0) L 05/01/22 06:16 RBC 4.51 M/mm3 (3.65-5.03) 05/01/22 06:16 Hgb 13.4 gm/dl (10.1-14.3) 05/01/22 06:16 Hct 40.9 % (30.3-42.9) 05/01/22 06:16 MCV 91 fl (79-97) 05/01/22 06:16 MCH 30 pg (28-32) 05/01/22 06:16 MCHC 33 % (30-34) 05/01/22 06:16 RDW 13.3 % (13.2-15.2) 05/01/22 06:16 Plt Count 172 K/mm3 (140-440) 05/01/22 06:16 Lymph % (Auto) 35.4 % (13.4-35.0) H 05/01/22 06:16 [place] % (Auto) 8.9 % (0.0-7.3) H 05/01/22 06:16 Eos % (Auto) 2.2 % (0.0-4.3) 05/01/22 06:16 Baso % (Auto) 1.2 % (0.0-1.8) 05/01/22 06:16 Lymph # (Auto) 1.4 K/mm3 (1.2-5.4) 05/01/22 06:16 [place] # (Auto) 0.4 K/mm3 (0.0-0.8) 05/01/22 06:16 Eos # (Auto) 0.1 K/mm3 (0.0-0.4) 05/01/22 06:16 Baso # (Auto) 0.0 K/mm3 (0.0-0.1) 05/01/22 06:16 Seg Neutrophils % 52.3 % (40.0-70.0) 05/01/22 06:16 Seg Neutrophils # 2.1 K/mm3 (1.8-7.7) 05/01/22 06:16 Sodium 138 mmol/L (137-145) 05/01/22 06:16 Potassium 3.8 mmol/L (3.6-5.0) 05/01/22 06:16 Chloride 103.7 mmol/L (98-107) 05/01/22 06:16 Carbon Dioxide 24 mmol/L (22-30) 05/01/22 06:16 Anion Gap 14 mmol/L 05/01/22 06:16 BUN 11 mg/dL (7-17) 05/01/22 06:16 Creatinine 0.6 mg/dL (0.6-1.2) 05/01/22 06:16 Estimated GFR > 60 ml/min 05/01/22 06:16 BUN/Creatinine Ratio 18 % 05/01/22 06:16 Glucose 206 mg/dL (65-100) H 05/01/22 06:16 POC Glucose 197 mg/dL (70-105) H 05/02/22 10:03 Hemoglobin A1c 9.1 % (4-6) H 05/01/22 06:16 Calcium 8.9 mg/dL (8.4-10.2) 05/01/22 06:16 Total Bilirubin 0.60 mg/dL (0.1-1.2) 05/01/22 06:16 AST 20 units/L (5-40) 05/01/22 06:16 ALT 27 units/L (7-56) 05/01/22 06:16 Alkaline Phosphatase 47 units/L (35-129) 05/01/22 06:16 Total Protein 6.4 g/dL (6.3-8.2) 05/01/22 06:16 Albumin 4.3 g/dL (3.9-5) 05/01/22 06:16 Albumin/Globulin Ratio 2.0 % 05/01/22 06:16 Triglycerides 142 mg/dL (2-149) 05/01/22 06:16 Cholesterol 144 mg/dL (50-199) 05/01/22 06:16 LDL Cholesterol Direct 96 mg/dL (50-130) 05/01/22 06:16 HDL Cholesterol 37 mg/dL (40-59) L 05/01/22 06:16 Cholesterol/HDL Ratio 3.89 % 05/01/22 06:16 TSH 0.672 mlU/mL (0.270-4.200) 05/01/22 06:16 Last Vital Signs Temp 99.3 F 05/01/22 09:16 Pulse 79 05/01/22 09:16 Resp 18 05/01/22 09:16 BP 131/75 05/01/22 09:16 Pulse Ox 92 05/01/22 09:16
[2022-05-02] MEDS: traZODone 100 MG TAB PO SCH ×2 (21:20→22:25)
[2022-05-03] MEDS: INSULIN LISPRO 100 UNIT/ML SUB-Q SCH ×4 (08:00→21:48)
[2022-05-03] MEDS: HALOPERIDOL LACTATE 5 MG/1 ML INJ IM PRN ×2 (08:05→15:00)
[2022-05-03] MEDS: LORazepam 2 MG/ML VIAL IM PRN ×2 (08:05→15:00)
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
[2022-05-03] MEDS: risperiDONE 1 MG TAB PO SCH ×2 (11:00→21:48)
[2022-05-03] MEDS: FLUoxetine 20 MG CAP PO SCH (11:00)
[2022-05-03] MEDS: buPROPion XL 150 MG TAB PO SCH (11:00)
[2022-05-03] MEDS: DIVALPROEX DR 500 MG TAB PO SCH (11:00)
[2022-05-03] MEDS: PROPRANOLOL 10 MG TAB PO SCH ×2 (11:00→21:48)
[2022-05-03] MEDS ORDERED: ZIPRASIDONE MESYLATE 20 MG VIAL IM PRN (17:00)
[2022-05-03] MEDS: metFORMIN 500 MG TAB PO SCH (17:04)
--- NOTE | 2022-05-03 20:19 | Progress Note ---
Assessment and Plan - Patient Problems (1) HTN (hypertension) Current Visit: Yes Status: Acute Qualifiers: Hypertension type: primary hypertension Qualified Code(s): I10 - Essential (primary) hypertension Plan to address problem: Monitor blood pressure every shift, continue medical management. (2) Diabetes Current Visit: Yes Status: Acute Plan to address problem: Consistent carbohydrate diet, Accu-Chek, insulin protocol, hypoglycemia protocol. (3) Bipolar 1 disorder Current Visit: Yes Status: Acute Plan to address problem: Continue medical management, supportive care, behavior change counseling, (4) Schizophrenia Current Visit: Yes Status: Acute Qualifiers: Schizophrenia type: unspecified Qualified Code(s): F20.9 - Schizophrenia, unspecified Plan to address problem: Continue medical management, supportive care. (5) Advance care planning Current Visit: Yes Status: Acute Plan to address problem: Disease education done, care plan discussed, diagnoses discussed, prognosis discussed, patient is full code. Patient acknowledges understanding and agreement with care plan, +30 minutes. (6) Preventative health care Current Visit: Yes Status: Acute Plan to address problem: Patient counseled regarding balanced diet, increase physical activity at discharge, consistent carbohydrate diet, weight reduction, patient instructed to follow-up with primary care physician regarding all age and risk factor appropriate screening test. +30 minutes. History Interval history: 57 YO Female with Obesity Hypoventilation Syndrome, HTN, DM, Bipolar Disorder, Schizophrenia, Schizoaffective Disorder Consult placed by Dr. Torres for medical management. Patient seen and evaluated in the recreation room. Patient appears to be at baseline level of cognition and function. Hospitalist Physical - Constitutional Vitals: Temp Pulse Resp BP Pulse Ox 98.6 F 79 18 145/82 97 05/03/22 08:58 05/03/22 08:58 05/03/22 08:58 05/03/22 08:58 05/03/22 08:58 General appearance: Present: no acute distress, obese - EENT Eyes: Present: PERRL ENT: hearing intact - Neck Neck: Present: supple - Respiratory Respiratory effort: normal Respiratory: bilateral: CTA - Cardiovascular Rhythm: regular Heart Sounds: Present: S1 & S2 - Extremities Extremities: no ischemia Peripheral Pulses: within normal limits - Abdominal General gastrointestinal: soft, non-tender, non-distended - Integumentary Integumentary: Present: clear, dry - Psychiatric Psychiatric: cooperative - Neurologic Neurologic: CNII-XII intact Results - Labs CBC & Chem 7: 05/01/22 06:16 05/01/22 06:16 Labs: Laboratory Last Values WBC 4.1 K/mm3 (4.5-11.0) L 05/01/22 06:16 RBC 4.51 M/mm3 (3.65-5.03) 05/01/22 06:16 Hgb 13.4 gm/dl (10.1-14.3) 05/01/22 06:16 Hct 40.9 % (30.3-42.9) 05/01/22 06:16 MCV 91 fl (79-97) 05/01/22 06:16 MCH 30 pg (28-32) 05/01/22 06:16 MCHC 33 % (30-34) 05/01/22 06:16 RDW 13.3 % (13.2-15.2) 05/01/22 06:16 Plt Count 172 K/mm3 (140-440) 05/01/22 06:16 Lymph % (Auto) 35.4 % (13.4-35.0) H 05/01/22 06:16 [place] % (Auto) 8.9 % (0.0-7.3) H 05/01/22 06:16 Eos % (Auto) 2.2 % (0.0-4.3) 05/01/22 06:16 Baso % (Auto) 1.2 % (0.0-1.8) 05/01/22 06:16 Lymph # (Auto) 1.4 K/mm3 (1.2-5.4) 05/01/22 06:16 [place] # (Auto) 0.4 K/mm3 (0.0-0.8) 05/01/22 06:16 Eos # (Auto) 0.1 K/mm3 (0.0-0.4) 05/01/22 06:16 Baso # (Auto) 0.0 K/mm3 (0.0-0.1) 05/01/22 06:16 Seg Neutrophils % 52.3 % (40.0-70.0) 05/01/22 06:16 Seg Neutrophils # 2.1 K/mm3 (1.8-7.7) 05/01/22 06:16 Sodium 138 mmol/L (137-145) 05/01/22 06:16 Potassium 3.8 mmol/L (3.6-5.0) 05/01/22 06:16 Chloride 103.7 mmol/L (98-107) 05/01/22 06:16 Carbon Dioxide 24 mmol/L (22-30) 05/01/22 06:16 Anion Gap 14 mmol/L 05/01/22 06:16 BUN 11 mg/dL (7-17) 05/01/22 06:16 Creatinine 0.6 mg/dL (0.6-1.2) 05/01/22 06:16 Estimated GFR > 60 ml/min 05/01/22 06:16 BUN/Creatinine Ratio 18 % 05/01/22 06:16 Glucose 206 mg/dL (65-100) H 05/01/22 06:16 POC Glucose 197 mg/dL (70-105) H 05/02/22 10:03 Hemoglobin A1c 9.1 % (4-6) H 05/01/22 06:16 Calcium 8.9 mg/dL (8.4-10.2) 05/01/22 06:16 Total Bilirubin 0.60 mg/dL (0.1-1.2) 05/01/22 06:16 AST 20 units/L (5-40) 05/01/22 06:16 ALT 27 units/L (7-56) 05/01/22 06:16 Alkaline Phosphatase 47 units/L (35-129) 05/01/22 06:16 Total Protein 6.4 g/dL (6.3-8.2) 05/01/22 06:16 Albumin 4.3 g/dL (3.9-5) 05/01/22 06:16 Albumin/Globulin Ratio 2.0 % 05/01/22 06:16 Triglycerides 142 mg/dL (2-149) 05/01/22 06:16 Cholesterol 144 mg/dL (50-199) 05/01/22 06:16 LDL Cholesterol Direct 96 mg/dL (50-130) 05/01/22 06:16 HDL Cholesterol 37 mg/dL (40-59) L 05/01/22 06:16 Cholesterol/HDL Ratio 3.89 % 05/01/22 06:16 TSH 0.672 mlU/mL (0.270-4.200) 05/01/22 06:16 Garza/IV: Voiding Method Toilet Active Medications - Current Medications Current Medications: Generic Name Dose Route Start Last Admin Trade Name Freq PRN Reason Stop Dose Admin Bupropion HCl 300 mg 05/02/22 10:00 05/03/22 11:00 Bupropion Xl 150 Mg Tab PO Not Given QDAY [facility] Divalproex Sodium 500 mg 05/02/22 10:00 05/03/22 11:[address] 500 Mg Tab PO Not Given QAM [facility] Fluoxetine HCl 20 mg 05/02/22 10:00 05/03/22 11:00 Fluoxetine 20 Mg Cap PO Not Given QDAY [facility] Haloperidol Lactate 5 mg 05/01/22 20:01 05/03/22 15:00 Haloperidol Lactate 5 Mg/1 Ml Inj IM 5 mg Q6H PRN Administration Agitation Insulin Human Lispro 0 unit 05/01/22 07:30 05/03/22 17:01 Insulin Lispro 100 Unit/Ml SUB-Q Not Given ACHS [facility] Protocol Lorazepam 2 mg 05/01/22 19:59 05/03/22 15:00 Lorazepam 2 Mg/Ml Vial IM 2 mg Q6H PRN Administration Agitation Metformin HCl 500 mg 05/02/22 08:00 05/03/22 17:04 Metformin 500 Mg Tab PO Not Given BIDDIAB [facility] Propranolol HCl 10 mg 05/01/22 22:00 05/03/22 11:00 Propranolol 10 Mg Tab PO Not Given Q12HR [facility] Risperidone 2 mg 05/01/22 22:00 05/03/22 11:00 Risperidone 1 Mg Tab PO Not Given BID [facility] Trazodone HCl 50 mg 05/01/22 19:25 Trazodone 50 Mg Tab PO QHS PRN Anxiety Trazodone HCl 100 mg 05/01/22 22:00 05/02/22 22:25 Trazodone 100 Mg Tab PO Not Given QHS [facility] Ziprasidone 20 mg 05/03/22 17:00 Ziprasidone Mesylate 20 Mg Vial IM Q8H PRN Agitation
[2022-05-03] MEDS: traZODone 100 MG TAB PO SCH (21:48)
[2022-05-04] MEDS ORDERED: WATER FOR INJ Sterile (PF) 10 ML ONE (04:25)
[2022-05-04] MEDS: INSULIN LISPRO 100 UNIT/ML SUB-Q SCH ×4 (07:35→21:22)
[2022-05-04] MEDS: PROPRANOLOL 10 MG TAB PO SCH ×2 (09:34→21:22)
[2022-05-04] MEDS: metFORMIN 500 MG TAB PO SCH ×2 (09:34→16:45)
[2022-05-04] MEDS: HALOPERIDOL LACTATE 5 MG/1 ML INJ IM PRN ×2 (09:34→21:21)
[2022-05-04] MEDS: LORazepam 2 MG/ML VIAL IM PRN ×2 (09:34→21:21)
[2022-05-04] MEDS: DIVALPROEX DR 500 MG TAB PO SCH (09:34)
[2022-05-04] MEDS: FLUoxetine 20 MG CAP PO SCH (09:35)
[2022-05-04] MEDS: buPROPion XL 150 MG TAB PO SCH (09:35)
[2022-05-04] MEDS: risperiDONE 1 MG TAB PO SCH ×2 (09:36→21:22)
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
--- NOTE | 2022-05-04 13:57 | Progress Note ---
Assessment and Plan 57 YO Female with Obesity Hypoventilation Syndrome, HTN, DM, Bipolar Disorder, Schizophrenia, Schizoaffective Disorder Consult placed by Dr. Torres for medical management. Patient seen and evaluated in the recreation room. Patient appears to be at baseline level of cognition and function. (1) HTN (hypertension) Current Visit: Yes Status: Acute Qualifiers: Hypertension type: primary hypertension Qualified Code(s): I10 - Essential (primary) hypertension Plan to address problem: Monitor blood pressure every shift, continue medical management. (2) Diabetes Current Visit: Yes Status: Acute Plan to address problem: Consistent carbohydrate diet, Accu-Chek, insulin protocol, hypoglycemia protocol. (3) Bipolar 1 disorder Current Visit: Yes Status: Acute Plan to address problem: Continue medical management, supportive care, behavior change counseling, (4) Schizophrenia Current Visit: Yes Status: Acute Qualifiers: Schizophrenia type: unspecified Qualified Code(s): F20.9 - Schizophrenia, unspecified Plan to address problem: Continue medical management, supportive care. Subjective Date of service: 05/04/22 Principal diagnosis: Bipolar, schizophrenia Interval history: Patient seen and examined. Medical records and medication list reviewed. No acute event overnight noted by the RN. Patient denies any chest pain or difficulty breathing. Patient is tolerating diet. Objective - Exam Narrative Exam: General appearance: Present: no acute distress, obese - EENT Eyes: Present: PERRL ENT: hearing intact - Neck Neck: Present: supple - Respiratory Respiratory effort: normal Respiratory: bilateral: CTA - Cardiovascular Rhythm: regular Heart Sounds: Present: S1 & S2 - Extremities Extremities: no ischemia Peripheral Pulses: within normal limits - Abdominal General gastrointestinal: soft, non-tender, non-distended - Integumentary Integumentary: Present: clear, dry - Psychiatric Psychiatric: cooperative - Neurologic Neurologic: CNII-XII intact - Labs CBC & Chem 7: 05/01/22 06:16 05/01/22 06:16
[2022-05-04] MEDS: traZODone 100 MG TAB PO SCH (21:21)
[2022-05-05] MEDS ORDERED: WATER FOR INJ Sterile (PF) 10 ML ONE (07:06)
[2022-05-05] MEDS: LORazepam 2 MG/ML VIAL IM PRN ×2 (07:25→18:01)
[2022-05-05] MEDS: ZIPRASIDONE MESYLATE 20 MG VIAL IM SCH (07:25)
[2022-05-05] MEDS: INSULIN LISPRO 100 UNIT/ML SUB-Q SCH ×4 (08:00→21:45)
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
[2022-05-05] MEDS: metFORMIN 500 MG TAB PO SCH ×2 (14:02→17:00)
[2022-05-05] MEDS: PROPRANOLOL 10 MG TAB PO SCH ×2 (14:03→21:45)
[2022-05-05] MEDS: DIVALPROEX DR 500 MG TAB PO SCH (14:03)
[2022-05-05] MEDS: buPROPion XL 150 MG TAB PO SCH (14:04)
[2022-05-05] MEDS: risperiDONE 1 MG TAB PO SCH ×2 (14:04→21:46)
[2022-05-05] MEDS: FLUoxetine 20 MG CAP PO SCH (14:04)
[2022-05-05] MEDS: traZODone 100 MG TAB PO SCH (21:45)
[2022-05-06] MEDS: ZIPRASIDONE MESYLATE 20 MG VIAL IM SCH ×3 (00:05→23:12)
[2022-05-06] MEDS: LORazepam 2 MG/ML VIAL IM PRN ×4 (00:05→23:15)
[2022-05-06] MEDS: metFORMIN 500 MG TAB PO SCH ×2 (08:21→17:23)
[2022-05-06] MEDS: INSULIN LISPRO 100 UNIT/ML SUB-Q SCH ×4 (08:21→21:17)
[2022-05-06] MEDS: DIVALPROEX DR 500 MG TAB PO SCH ×3 (09:24→21:16)
[2022-05-06] MEDS: risperiDONE 1 MG TAB PO SCH ×2 (09:25→21:19)
[2022-05-06] MEDS: PROPRANOLOL 10 MG TAB PO SCH ×2 (09:25→21:17)
[2022-05-06] MEDS: FLUoxetine 20 MG CAP PO SCH (09:25)
[2022-05-06] MEDS: buPROPion XL 150 MG TAB PO SCH ×2 (09:26→09:53)
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
[2022-05-06] MEDS: traZODone 100 MG TAB PO SCH (21:16)
[2022-05-06] MEDS ORDERED: WATER FOR INJ Sterile (PF) 10 ML ONE (21:37)
[2022-05-07] MEDS: INSULIN LISPRO 100 UNIT/ML SUB-Q SCH ×4 (08:17→21:48)
[2022-05-07] MEDS: metFORMIN 500 MG TAB PO SCH ×2 (08:18→16:52)
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
[2022-05-07] MEDS ORDERED: WATER FOR INJ Sterile (PF) 10 ML ONE (11:32)
[2022-05-07] MEDS: DIVALPROEX DR 500 MG TAB PO SCH ×2 (11:34→21:48)
[2022-05-07] MEDS: FLUoxetine 20 MG CAP PO SCH (11:34)
[2022-05-07] MEDS: PROPRANOLOL 10 MG TAB PO SCH ×2 (11:34→21:48)
[2022-05-07] MEDS: buPROPion XL 150 MG TAB PO SCH (11:35)
[2022-05-07] MEDS: risperiDONE 1 MG TAB PO SCH ×2 (11:35→21:48)
[2022-05-07] MEDS: LORazepam 2 MG/ML VIAL IM PRN (11:42)
[2022-05-07] MEDS: ZIPRASIDONE MESYLATE 20 MG VIAL IM SCH (11:43)
[2022-05-07] MEDS: traZODone 100 MG TAB PO SCH (21:48)
[2022-05-08] MEDS ORDERED: WATER FOR INJ Sterile (PF) 10 ML ONE (00:20)
[2022-05-08] MEDS: ZIPRASIDONE MESYLATE 20 MG VIAL IM SCH (00:26)
[2022-05-08] MEDS: LORazepam 2 MG/ML VIAL IM PRN ×2 (00:27→22:41)
[2022-05-08] MEDS: INSULIN LISPRO 100 UNIT/ML SUB-Q SCH ×4 (09:36→21:17)
[2022-05-08] MEDS: risperiDONE 1 MG TAB PO SCH ×2 (09:41→21:16)
[2022-05-08] MEDS: metFORMIN 500 MG TAB PO SCH ×2 (09:42→17:29)
[2022-05-08] MEDS: FLUoxetine 20 MG CAP PO SCH (09:42)
[2022-05-08] MEDS: DIVALPROEX DR 500 MG TAB PO SCH ×2 (09:42→21:16)
[2022-05-08] MEDS: buPROPion XL 150 MG TAB PO SCH (09:42)
[2022-05-08] MEDS: PROPRANOLOL 10 MG TAB PO SCH ×2 (09:49→21:17)
[2022-05-08] MEDS ORDERED: ZIPRASIDONE MESYLATE 20 MG VIAL IM SCH (10:00)
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
[2022-05-08] MEDS ORDERED: ZIPRASIDONE MESYLATE 20 MG VIAL IM PRN (11:18)
--- NOTE | 2022-05-08 20:23 | Progress Note ---
Assessment and Plan Assessment and plan: 57 YO Female with Obesity Hypoventilation Syndrome, HTN, DM, Bipolar Disorder, Schizophrenia, Schizoaffective Disorder Consult placed by Dr. Torres for medical management. Patient seen and evaluated in the recreation room. Patient appears to be at baseline level of cognition and function. (1) HTN (hypertension) Current Visit: Yes Status: Acute Qualifiers: Hypertension type: primary hypertension Qualified Code(s): I10 - Essential (primary) hypertension Plan to address problem: Monitor blood pressure every shift, continue medical management. (2) Diabetes Current Visit: Yes Status: Acute Plan to address problem: Consistent carbohydrate diet, Accu-Chek, insulin protocol, hypoglycemia protocol. (3) Bipolar 1 disorder Current Visit: Yes Status: Acute Plan to address problem: Continue medical management, supportive care, behavior change counseling, (4) Schizophrenia Current Visit: Yes Status: Acute Qualifiers: Schizophrenia type: unspecified Qualified Code(s): F20.9 - Schizophrenia, unspecified Plan to address problem: Continue medical management, supportive care. History Interval history: Patient seen and examined. No acute event overnight noted by the RN. Patient denies any chest pain or difficulty breathing. Patient is tolerating diet. Hospitalist Physical - Physical exam Narrative exam: - Exam Narrative Exam: General appearance: Present: no acute distress, obese - EENT Eyes: Present: PERRL ENT: hearing intact - Neck Neck: Present: supple - Respiratory Respiratory effort: normal Respiratory: bilateral: CTA - Cardiovascular Rhythm: regular Heart Sounds: Present: S1 & S2 - Extremities Extremities: no ischemia Peripheral Pulses: within normal limits - Abdominal General gastrointestinal: soft, non-tender, non-distended - Integumentary Integumentary: Present: clear, dry - Psychiatric Psychiatric: cooperative - Neurologic Neurologic: CNII-XII intact - Constitutional Vitals: Temp Pulse Resp BP Pulse Ox 97.4 F L 76 16 127/80 100 05/07/22 19:21 05/07/22 19:21 05/07/22 19:21 05/07/22 19:21 05/07/22 19:21 General appearance: Present: no acute distress, obese Results - Labs CBC & Chem 7: 05/01/22 06:16 05/01/22 06:16 Labs: Laboratory Last Values WBC 4.1 K/mm3 (4.5-11.0) L 05/01/22 06:16 RBC 4.51 M/mm3 (3.65-5.03) 05/01/22 06:16 Hgb 13.4 gm/dl (10.1-14.3) 05/01/22 06:16 Hct 40.9 % (30.3-42.9) 05/01/22 06:16 MCV 91 fl (79-97) 05/01/22 06:16 MCH 30 pg (28-32) 05/01/22 06:16 MCHC 33 % (30-34) 05/01/22 06:16 RDW 13.3 % (13.2-15.2) 05/01/22 06:16 Plt Count 172 K/mm3 (140-440) 05/01/22 06:16 Lymph % (Auto) 35.4 % (13.4-35.0) H 05/01/22 06:16 [place] % (Auto) 8.9 % (0.0-7.3) H 05/01/22 06:16 Eos % (Auto) 2.2 % (0.0-4.3) 05/01/22 06:16 Baso % (Auto) 1.2 % (0.0-1.8) 05/01/22 06:16 Lymph # (Auto) 1.4 K/mm3 (1.2-5.4) 05/01/22 06:16 [place] # (Auto) 0.4 K/mm3 (0.0-0.8) 05/01/22 06:16 Eos # (Auto) 0.1 K/mm3 (0.0-0.4) 05/01/22 06:16 Baso # (Auto) 0.0 K/mm3 (0.0-0.1) 05/01/22 06:16 Seg Neutrophils % 52.3 % (40.0-70.0) 05/01/22 06:16 Seg Neutrophils # 2.1 K/mm3 (1.8-7.7) 05/01/22 06:16 Sodium 138 mmol/L (137-145) 05/01/22 06:16 Potassium 3.8 mmol/L (3.6-5.0) 05/01/22 06:16 Chloride 103.7 mmol/L (98-107) 05/01/22 06:16 Carbon Dioxide 24 mmol/L (22-30) 05/01/22 06:16 Anion Gap 14 mmol/L 05/01/22 06:16 BUN 11 mg/dL (7-17) 05/01/22 06:16 Creatinine 0.6 mg/dL (0.6-1.2) 05/01/22 06:16 Estimated GFR > 60 ml/min 05/01/22 06:16 BUN/Creatinine Ratio 18 % 05/01/22 06:16 Glucose 206 mg/dL (65-100) H 05/01/22 06:16 POC Glucose 196 mg/dL (70-105) H 05/07/22 19:56 Hemoglobin A1c 9.1 % (4-6) H 05/01/22 06:16 Calcium 8.9 mg/dL (8.4-10.2) 05/01/22 06:16 Total Bilirubin 0.60 mg/dL (0.1-1.2) 05/01/22 06:16 AST 20 units/L (5-40) 05/01/22 06:16 ALT 27 units/L (7-56) 05/01/22 06:16 Alkaline Phosphatase 47 units/L (35-129) 05/01/22 06:16 Total Protein 6.4 g/dL (6.3-8.2) 05/01/22 06:16 Albumin 4.3 g/dL (3.9-5) 05/01/22 06:16 Albumin/Globulin Ratio 2.0 % 05/01/22 06:16 Triglycerides 142 mg/dL (2-149) 05/01/22 06:16 Cholesterol 144 mg/dL (50-199) 05/01/22 06:16 LDL Cholesterol Direct 96 mg/dL (50-130) 05/01/22 06:16 HDL Cholesterol 37 mg/dL (40-59) L 05/01/22 06:16 Cholesterol/HDL Ratio 3.89 % 05/01/22 06:16 TSH 0.672 mlU/mL (0.270-4.200) 05/01/22 06:16 Garza/IV: Voiding Method Toilet Active Medications - Current Medications Current Medications: Generic Name Dose Route Start Last Admin Trade Name Freq PRN Reason Stop Dose Admin Bupropion HCl 150 mg 05/06/22 10:00 05/08/22 09:42 Bupropion Xl 150 Mg Tab PO 150 mg QDAY DAGMAR Administration Divalproex Sodium 1,000 mg 05/06/22 10:00 05/08/22 09:[address] 500 Mg Tab PO 1,000 mg BID DAGMAR Administration Fluoxetine HCl 20 mg 05/02/22 10:00 05/08/22 09:42 Fluoxetine 20 Mg Cap PO 20 mg QDAY DAGMAR Administration Insulin Human Lispro 0 unit 05/01/22 07:30 05/08/22 16:39 Insulin Lispro 100 Unit/Ml SUB-Q Not Given [facility]S [facility] Protocol Lorazepam 2 mg 05/01/22 19:59 05/08/22 00:27 Lorazepam 2 Mg/Ml Vial IM 2 mg Q6H PRN Administration Agitation Metformin HCl 500 mg 05/02/22 08:00 05/08/22 17:29 Metformin 500 Mg Tab PO 500 mg BIDDIAB DAGMAR Administration Propranolol HCl 10 mg 05/01/22 22:00 05/08/22 09:49 Propranolol 10 Mg Tab PO Not Given Q12HR DAGMAR Risperidone 2 mg 05/01/22 22:00 05/08/22 09:41 Risperidone 1 Mg Tab PO 2 mg BID DAGMAR Administration Trazodone HCl 100 mg 05/01/22 22:00 05/07/22 21:48 Trazodone 100 Mg Tab PO Not Given QHS [facility] Nutrition/Malnutrition Assess - Dietary Evaluation Nutrition/Malnutrition Findings: Nutrition Notes Start: 05/08/22 19:14 Freq: Status: Active Protocol: Document 05/08/22 19:14 CONNOR (Rec: 05/08/22 19:22 CONNOR [id number]) Nutrition Notes Need for Assessment generated from: LOS Initial or Follow up Assessment Other Pertinent Diagnosis Bipolar Disorder, Schizoaffective Disorder. Current Diet Cardiac/Consistent Carbohydrates Diet (since B ). Labs/Tests 05/08: N/A. Pertinent Medications 05/08: Nutritionally unremarkable. 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 Weight Status Obese Subjective/Other Information RD consult for LOS assessment. Pt's PO intake of meals has been Good, (100%) and well tolerated, according to ADL notes. Pt is on Room Air, O2 saturation @ 100%, according to Vital Signs notes. Pt presents unspecified bruises as signs of concern for skin risk at this time, accoreding to Physical Assessment History notes. Percent of energy/protein needs met: Prescribed Cardiac/Consistent Carbohydrates Diet provides for energy/protein needs (1, 977 Kcal/86 g) during LOS. Burn Absent Trauma Absent GI Symptoms None Food Allergy No Skin Integrity/Comment Unspecified bruises. Current % PO Good (75-100%) Minimum of two criteria No Fluid Accumulation N/A Reduced Mattress Filler Strength N/A (non-severe) Protein-Calorie Malnutrition N\A #1 Nutrition Diagnosis No nutrition diagnosis at this time Is patient on ventilator? No Is Patient Ambulatory and/or Out of Bed Yes REE-([facility]-ambulatory/OOB) [ 2086.019 [id number]] Kcal/Kg value to use for calculation 18 Approximate Energy Requirements Using 1795 kcal/Kg Calculation Used for Recommendations Kcal/kg Additional Notes Protein: 0.8-1 g/Kg AdjBW; 65- 81 g/day. Fluids: 1 ml/Kcal, or as per MD. Nutrition Intervention Change Diet Order: Continue Cardiac/Consistent Carbohydrates Diet. Revisit per MD consult or patient Sign Off request: Additional Comments Continue monitoring food tolerance, %PO intake of meals , and BM.
[2022-05-08] MEDS: traZODone 100 MG TAB PO SCH (21:16)
[2022-05-08] MEDS: ZIPRASIDONE MESYLATE 20 MG VIAL IM PRN (22:41)
[2022-05-09] MEDS: INSULIN LISPRO 100 UNIT/ML SUB-Q SCH ×4 (08:28→21:30)
[2022-05-09] MEDS: metFORMIN 500 MG TAB PO SCH ×2 (08:30→17:02)
[2022-05-09] MEDS: LORazepam 2 MG/ML VIAL IM PRN ×2 (08:30→16:04)
[2022-05-09] MEDS: ZIPRASIDONE MESYLATE 20 MG VIAL IM PRN ×2 (08:30→16:04)
[2022-05-09] MEDS: DIVALPROEX DR 500 MG TAB PO SCH ×2 (09:02→21:29)
[2022-05-09] MEDS: risperiDONE 1 MG TAB PO SCH ×3 (09:02→21:30)
[2022-05-09] MEDS: PROPRANOLOL 10 MG TAB PO SCH ×2 (09:02→21:30)
[2022-05-09] MEDS: FLUoxetine 20 MG CAP PO SCH ×2 (09:02→16:05)
[2022-05-09] MEDS: buPROPion XL 150 MG TAB PO SCH ×2 (09:03→16:05)
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
[2022-05-09] MEDS: traZODone 50 MG TAB PO SCH (21:29)
[2022-05-09] MEDS: MELATONIN 5 MG TAB PO SCH (21:30)
[2022-05-10] MEDS: INSULIN LISPRO 100 UNIT/ML SUB-Q SCH ×4 (07:30→21:05)
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
[2022-05-10] MEDS: risperiDONE 1 MG TAB PO SCH ×2 (09:03→21:04)
[2022-05-10] MEDS: PROPRANOLOL 10 MG TAB PO SCH ×2 (09:03→21:05)
[2022-05-10] MEDS: DIVALPROEX DR 500 MG TAB PO SCH ×2 (09:03→21:03)
[2022-05-10] MEDS: buPROPion XL 150 MG TAB PO SCH (09:03)
[2022-05-10] MEDS: FLUoxetine 20 MG CAP PO SCH (09:03)
[2022-05-10] MEDS: metFORMIN 500 MG TAB PO SCH ×2 (09:04→16:06)
[2022-05-10] MEDS: ZIPRASIDONE MESYLATE 20 MG VIAL IM PRN (17:21)
[2022-05-10] MEDS: LORazepam 2 MG/ML VIAL IM PRN (17:21)
[2022-05-10] MEDS: traZODone 50 MG TAB PO SCH (21:03)
[2022-05-10] MEDS: MELATONIN 5 MG TAB PO SCH (21:04)
[2022-05-11] MEDS: MELATONIN 5 MG TAB PO SCH ×2 (06:14→21:07)
[2022-05-11] MEDS: traZODone 50 MG TAB PO SCH ×2 (06:15→21:06)
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
[2022-05-11] MEDS: INSULIN LISPRO 100 UNIT/ML SUB-Q SCH ×4 (08:50→21:06)
[2022-05-11] MEDS: metFORMIN 500 MG TAB PO SCH ×2 (08:57→17:11)
[2022-05-11] MEDS: FLUoxetine 20 MG CAP PO SCH (09:00)
[2022-05-11] MEDS: risperiDONE 1 MG TAB PO SCH ×2 (09:00→21:07)
[2022-05-11] MEDS: DIVALPROEX DR 500 MG TAB PO SCH ×2 (09:00→21:06)
[2022-05-11] MEDS: buPROPion XL 150 MG TAB PO SCH (09:00)
[2022-05-11] MEDS: PROPRANOLOL 10 MG TAB PO SCH ×2 (09:00→21:07)
--- NOTE | 2022-05-11 14:06 | Progress Note ---
Assessment and Plan - Patient Problems (1) HTN (hypertension) Current Visit: Yes Status: Acute Qualifiers: Hypertension type: primary hypertension Qualified Code(s): I10 - Essential (primary) hypertension Plan to address problem: Monitor blood pressure every shift, continue medical management. (2) Diabetes Current Visit: Yes Status: Acute Plan to address problem: Consistent carbohydrate diet, Accu-Chek, insulin protocol, hypoglycemia protocol. (3) Bipolar 1 disorder Current Visit: Yes Status: Acute Plan to address problem: Continue medical management, supportive care, behavior change counseling, (4) Schizophrenia Current Visit: Yes Status: Acute Qualifiers: Schizophrenia type: unspecified Qualified Code(s): F20.9 - Schizophrenia, unspecified Plan to address problem: Continue medical management, supportive care. (5) Advance care planning Current Visit: Yes Status: Acute Plan to address problem: Disease education done, care plan discussed, diagnoses discussed, prognosis discussed, patient is full code. Patient acknowledges understanding and agreement with care plan, +30 minutes. (6) Preventative health care Current Visit: Yes Status: Acute Plan to address problem: Patient counseled regarding balanced diet, increase physical activity at discharge, consistent carbohydrate diet, weight reduction, patient instructed to follow-up with primary care physician regarding all age and risk factor appropriate screening test. +30 minutes. History Interval history: 57 YO Female with Obesity Hypoventilation Syndrome, HTN, DM, Bipolar Disorder, Schizophrenia, Schizo-Affective Disorder. Consult placed by Dr. Torres for medical management. Patient seen and evaluated in the recreation room. Patient appears to be at baseline level of cognition and function. Hospitalist Physical - Constitutional Vitals: Temp Pulse Resp BP Pulse Ox 98.8 F 83 18 112/76 96 05/09/22 21:00 05/09/22 21:00 05/09/22 21:00 05/09/22 21:00 05/09/22 21:00 General appearance: Present: no acute distress, obese - EENT Eyes: Present: PERRL ENT: hearing intact - Neck Neck: Present: supple - Respiratory Respiratory effort: normal Respiratory: bilateral: CTA - Cardiovascular Rhythm: regular Heart Sounds: Present: S1 & S2 - Extremities Extremities: no ischemia Peripheral Pulses: within normal limits - Abdominal General gastrointestinal: soft, non-tender, non-distended - Integumentary Integumentary: Present: clear, dry - Psychiatric Psychiatric: cooperative - Neurologic Neurologic: CNII-XII intact Results - Labs CBC & Chem 7: 05/01/22 06:16 05/01/22 06:16 Labs: Laboratory Last Values WBC 4.1 K/mm3 (4.5-11.0) L 05/01/22 06:16 RBC 4.51 M/mm3 (3.65-5.03) 05/01/22 06:16 Hgb 13.4 gm/dl (10.1-14.3) 05/01/22 06:16 Hct 40.9 % (30.3-42.9) 05/01/22 06:16 MCV 91 fl (79-97) 05/01/22 06:16 MCH 30 pg (28-32) 05/01/22 06:16 MCHC 33 % (30-34) 05/01/22 06:16 RDW 13.3 % (13.2-15.2) 05/01/22 06:16 Plt Count 172 K/mm3 (140-440) 05/01/22 06:16 Lymph % (Auto) 35.4 % (13.4-35.0) H 05/01/22 06:16 [place] % (Auto) 8.9 % (0.0-7.3) H 05/01/22 06:16 Eos % (Auto) 2.2 % (0.0-4.3) 05/01/22 06:16 Baso % (Auto) 1.2 % (0.0-1.8) 05/01/22 06:16 Lymph # (Auto) 1.4 K/mm3 (1.2-5.4) 05/01/22 06:16 [place] # (Auto) 0.4 K/mm3 (0.0-0.8) 05/01/22 06:16 Eos # (Auto) 0.1 K/mm3 (0.0-0.4) 05/01/22 06:16 Baso # (Auto) 0.0 K/mm3 (0.0-0.1) 05/01/22 06:16 Seg Neutrophils % 52.3 % (40.0-70.0) 05/01/22 06:16 Seg Neutrophils # 2.1 K/mm3 (1.8-7.7) 05/01/22 06:16 Sodium 138 mmol/L (137-145) 05/01/22 06:16 Potassium 3.8 mmol/L (3.6-5.0) 05/01/22 06:16 Chloride 103.7 mmol/L (98-107) 05/01/22 06:16 Carbon Dioxide 24 mmol/L (22-30) 05/01/22 06:16 Anion Gap 14 mmol/L 05/01/22 06:16 BUN 11 mg/dL (7-17) 05/01/22 06:16 Creatinine 0.6 mg/dL (0.6-1.2) 05/01/22 06:16 Estimated GFR > 60 ml/min 05/01/22 06:16 BUN/Creatinine Ratio 18 % 05/01/22 06:16 Glucose 206 mg/dL (65-100) H 05/01/22 06:16 POC Glucose 196 mg/dL (70-105) H 05/07/22 19:56 Hemoglobin A1c 9.1 % (4-6) H 05/01/22 06:16 Calcium 8.9 mg/dL (8.4-10.2) 05/01/22 06:16 Total Bilirubin 0.60 mg/dL (0.1-1.2) 05/01/22 06:16 AST 20 units/L (5-40) 05/01/22 06:16 ALT 27 units/L (7-56) 05/01/22 06:16 Alkaline Phosphatase 47 units/L (35-129) 05/01/22 06:16 Total Protein 6.4 g/dL (6.3-8.2) 05/01/22 06:16 Albumin 4.3 g/dL (3.9-5) 05/01/22 06:16 Albumin/Globulin Ratio 2.0 % 05/01/22 06:16 Triglycerides 142 mg/dL (2-149) 05/01/22 06:16 Cholesterol 144 mg/dL (50-199) 05/01/22 06:16 LDL Cholesterol Direct 96 mg/dL (50-130) 05/01/22 06:16 HDL Cholesterol 37 mg/dL (40-59) L 05/01/22 06:16 Cholesterol/HDL Ratio 3.89 % 05/01/22 06:16 TSH 0.672 mlU/mL (0.270-4.200) 05/01/22 06:16 Garza/IV: Voiding Method Toilet Active Medications - Current Medications Current Medications: Generic Name Dose Route Start Last Admin Trade Name Freq PRN Reason Stop Dose Admin Bupropion HCl 150 mg 05/06/22 10:00 05/11/22 09:00 Bupropion Xl 150 Mg Tab PO 150 mg QDAY DAGMAR Administration Divalproex Sodium 1,000 mg 05/06/22 10:00 05/11/22 09:[address] 500 Mg Tab PO 1,000 mg BID DAGMAR Administration Fluoxetine HCl 20 mg 05/02/22 10:00 05/11/22 09:00 Fluoxetine 20 Mg Cap PO 20 mg QDAY DAGMAR Administration Insulin Human Lispro 0 unit 05/01/22 07:30 05/11/22 12:02 Insulin Lispro 100 Unit/Ml SUB-Q Not Given ACHS [facility] Protocol Lorazepam 2 mg 05/01/22 19:59 05/10/22 17:21 Lorazepam 2 Mg/Ml Vial IM 2 mg Q6H PRN Administration Agitation Melatonin 10 mg 05/11/22 22:00 Melatonin 5 Mg Tab PO QHS DAGMAR Metformin HCl 500 mg 05/02/22 08:00 05/11/22 08:57 Metformin 500 Mg Tab PO 500 mg BIDDIAB DAGMAR Administration Olanzapine 2.5 mg 05/09/22 11:00 05/11/22 09:00 Olanzapine 2.5 Mg Tab PO 2.5 mg QDAY DAGMAR Administration Propranolol HCl 10 mg 05/01/22 22:00 05/11/22 09:00 Propranolol 10 Mg Tab PO Not Given Q12HR DAGMAR Risperidone 2 mg 05/01/22 22:00 05/11/22 09:00 Risperidone 1 Mg Tab PO 2 mg BID DAGMAR Administration Trazodone HCl 150 mg 05/09/22 22:00 05/11/22 06:15 Trazodone 50 Mg Tab PO Not Given QHS [facility] Nutrition/Malnutrition Assess - Dietary Evaluation Nutrition/Malnutrition Findings: Nutrition Notes Start: 05/08/22 19:14 Freq: Status: Active Protocol: Document 05/08/22 19:14 CONNOR (Rec: 05/08/22 19:22 CONNOR [id number]) Nutrition Notes Need for Assessment generated from: LOS Initial or Follow up Assessment Other Pertinent Diagnosis Bipolar Disorder, Schizoaffective Disorder. Current Diet Cardiac/Consistent Carbohydrates Diet (since B ). Labs/Tests 05/08: N/A. Pertinent Medications 05/08: Nutritionally unremarkable. 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 Weight Status Obese Subjective/Other Information RD consult for LOS assessment. Pt's PO intake of meals has been Good, (100%) and well tolerated, according to ADL notes. Pt is on Room Air, O2 saturation @ 100%, according to Vital Signs notes. Pt presents unspecified bruises as signs of concern for skin risk at this time, accoreding to Physical Assessment History notes. Percent of energy/protein needs met: Prescribed Cardiac/Consistent Carbohydrates Diet provides for energy/protein needs (1, 977 Kcal/86 g) during LOS. Burn Absent Trauma Absent GI Symptoms None Food Allergy No Skin Integrity/Comment Unspecified bruises. Current % PO Good (75-100%) Minimum of two criteria No Fluid Accumulation N/A Reduced Supervisor Order Takers Strength N/A (non-severe) Protein-Calorie Malnutrition N\A #1 Nutrition Diagnosis No nutrition diagnosis at this time Is patient on ventilator? No Is Patient Ambulatory and/or Out of Bed Yes REE-([facility]-ambulatory/OOB) [ 2086.019 [id number]] Kcal/Kg value to use for calculation 18 Approximate Energy Requirements Using 1795 kcal/Kg Calculation Used for Recommendations Kcal/kg Additional Notes Protein: 0.8-1 g/Kg AdjBW; 65- 81 g/day. Fluids: 1 ml/Kcal, or as per MD. Nutrition Intervention Change Diet Order: Continue Cardiac/Consistent Carbohydrates Diet. Revisit per MD consult or patient Sign Off request: Additional Comments Continue monitoring food tolerance, %PO intake of meals , and BM.
[2022-05-12] MEDS: INSULIN LISPRO 100 UNIT/ML SUB-Q SCH ×4 (08:10→21:51)
--- NOTE | 2022-05-12 09:00 | Discharge Summary ---
Providers - Providers Date of Admission: 05/01/22 01:09 Date of discharge: 05/12/22 Attending physician: JENNIFER KUMAR MD 04/30/22 23:44 Consult to Physician [CONS] Routine Comment: Consulting Provider: VLADIMIR REDDING Physician Instructions: Reason For Exam: H & P Primary care physician: CLINICAL RESEARCH SPEC Hospitalization Reason for admission: hallucinations, agitation Admitting Diagnosis: F25.9 - SCHIZOAFFECTIVE DISORDER, UNSPECIFIED Condition: Stable Hospital course: The patient was provided inpatient psychiatric treatment with safe and supportive care, medication adjustment, adverse effect monitoring, medical evaluations, medical treatments, assessment and psycho-education. The patient's mood, cognition, behavior, moral support are improved and stabilized. St the time of discharge, the patient had no endangering behavior and no debilitating adverse effects. The patient agreed on potential consequences of no treatment and gave informed consent. Disposition: 01 HOME / SELF CARE / HOMELESS Time spent for discharge: 35 Allergies/Adverse Reactions: Allergies No Known Allergies Allergy (Verified 04/29/22 11:13) Vital Signs: Last Vital Signs Temp 98.8 F 05/09/22 21:00 Pulse 83 05/09/22 21:00 Resp 18 05/09/22 21:00 BP 112/76 05/09/22 21:00 Pulse Ox 96 05/09/22 21:00 Last Lab: Laboratory Last Values WBC 4.1 K/mm3 (4.5-11.0) L 05/01/22 06:16 RBC 4.51 M/mm3 (3.65-5.03) 05/01/22 06:16 Hgb 13.4 gm/dl (10.1-14.3) 05/01/22 06:16 Hct 40.9 % (30.3-42.9) 05/01/22 06:16 MCV 91 fl (79-97) 05/01/22 06:16 MCH 30 pg (28-32) 05/01/22 06:16 MCHC 33 % (30-34) 05/01/22 06:16 RDW 13.3 % (13.2-15.2) 05/01/22 06:16 Plt Count 172 K/mm3 (140-440) 05/01/22 06:16 Lymph % (Auto) 35.4 % (13.4-35.0) H 05/01/22 06:16 [place] % (Auto) 8.9 % (0.0-7.3) H 05/01/22 06:16 Eos % (Auto) 2.2 % (0.0-4.3) 05/01/22 06:16 Baso % (Auto) 1.2 % (0.0-1.8) 05/01/22 06:16 Lymph # (Auto) 1.4 K/mm3 (1.2-5.4) 05/01/22 06:16 [place] # (Auto) 0.4 K/mm3 (0.0-0.8) 05/01/22 06:16 Eos # (Auto) 0.1 K/mm3 (0.0-0.4) 05/01/22 06:16 Baso # (Auto) 0.0 K/mm3 (0.0-0.1) 05/01/22 06:16 Seg Neutrophils % 52.3 % (40.0-70.0) 05/01/22 06:16 Seg Neutrophils # 2.1 K/mm3 (1.8-7.7) 05/01/22 06:16 Sodium 138 mmol/L (137-145) 05/01/22 06:16 Potassium 3.8 mmol/L (3.6-5.0) 05/01/22 06:16 Chloride 103.7 mmol/L (98-107) 05/01/22 06:16 Carbon Dioxide 24 mmol/L (22-30) 05/01/22 06:16 Anion Gap 14 mmol/L 05/01/22 06:16 BUN 11 mg/dL (7-17) 05/01/22 06:16 Creatinine 0.6 mg/dL (0.6-1.2) 05/01/22 06:16 Estimated GFR > 60 ml/min 05/01/22 06:16 BUN/Creatinine Ratio 18 % 05/01/22 06:16 Glucose 206 mg/dL (65-100) H 05/01/22 06:16 POC Glucose 160 mg/dL (70-105) H 05/11/22 20:31 Hemoglobin A1c 9.1 % (4-6) H 05/01/22 06:16 Calcium 8.9 mg/dL (8.4-10.2) 05/01/22 06:16 Total Bilirubin 0.60 mg/dL (0.1-1.2) 05/01/22 06:16 AST 20 units/L (5-40) 05/01/22 06:16 ALT 27 units/L (7-56) 05/01/22 06:16 Alkaline Phosphatase 47 units/L (35-129) 05/01/22 06:16 Total Protein 6.4 g/dL (6.3-8.2) 05/01/22 06:16 Albumin 4.3 g/dL (3.9-5) 05/01/22 06:16 Albumin/Globulin Ratio 2.0 % 05/01/22 06:16 Triglycerides 142 mg/dL (2-149) 05/01/22 06:16 Cholesterol 144 mg/dL (50-199) 05/01/22 06:16 LDL Cholesterol Direct 96 mg/dL (50-130) 05/01/22 06:16 HDL Cholesterol 37 mg/dL (40-59) L 05/01/22 06:16 Cholesterol/HDL Ratio 3.89 % 05/01/22 06:16 TSH 0.672 mlU/mL (0.270-4.200) 05/01/22 06:16 Core Measure Documentation - Palliative Care Palliative Care/ Comfort Measures: Not Applicable - Core Measures Any of the following diagnoses?: none Exam - Constitutional Vitals: Temp Pulse Resp BP Pulse Ox 98.8 F 83 18 112/76 96 05/09/22 21:00 05/09/22 21:00 05/09/22 21:00 05/09/22 21:00 05/09/22 21:00 General appearance: Present: no acute distress - EENT Eyes: Present: PERRL, EOM intact ENT: hearing intact, clear oral mucosa - Neck Neck: Present: supple, normal ROM - Respiratory Respiratory effort: normal Plan Activity: advance as tolerated Weight Bearing Status: Weight Bear as Tolerated Care Plan Goals: Maintain good and stable mental health Plan of Treatment: The patient should be compliant with medications, not to use drugs, and not to drink alcohol. The patient understands that if suicidal ideas, homicidal ideas or any endangering feeling arise, the patient should seek assistance including, but not limited to crisis hotline, and emergency room. Assessment: Schizoaffective Disorder Follow up with: PRIMARY CARE, [Primary Care Provider] - 7 Days Prescriptions: traZODone [Desyrel] 150 mg PO QHS #90 tablet Melatonin [Melatonin 5MG TAB] 10 mg PO QHS #[address] [[place]] 1,000 mg PO BID #120 tablet FLUoxetine [PROzac] 20 mg PO QDAY #30 capsule risperiDONE [RisperDAL] 2 mg PO BID #60 buPROPion XL [Wellbutrin XL] 150 mg PO QDAY #30 tablet OLANzapine [ZyPREXA] 2.5 mg PO QDAY #30 tablet
[2022-05-12] MEDS: metFORMIN 500 MG TAB PO SCH ×2 (10:06→17:50)
[2022-05-12] MEDS: buPROPion XL 150 MG TAB PO SCH (10:06)
[2022-05-12] MEDS: FLUoxetine 20 MG CAP PO SCH (10:06)
[2022-05-12] MEDS: DIVALPROEX DR 500 MG TAB PO SCH ×2 (10:06→21:47)
[2022-05-12] MEDS: risperiDONE 1 MG TAB PO SCH ×2 (10:06→21:50)
[2022-05-12] MEDS: PROPRANOLOL 10 MG TAB PO SCH ×2 (10:09→21:50)
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
--- NOTE | 2022-05-12 20:41 | Progress Note ---
Assessment and Plan - Patient Problems (1) HTN (hypertension) Current Visit: Yes Status: Acute Qualifiers: Hypertension type: primary hypertension Qualified Code(s): I10 - Essential (primary) hypertension Plan to address problem: Monitor blood pressure every shift, continue medical management. (2) Diabetes Current Visit: Yes Status: Acute Plan to address problem: Consistent carbohydrate diet, Accu-Chek, insulin protocol, hypoglycemia protocol. (3) Bipolar 1 disorder Current Visit: Yes Status: Acute Plan to address problem: Continue medical management, supportive care, behavior change counseling, (4) Schizophrenia Current Visit: Yes Status: Acute Qualifiers: Schizophrenia type: unspecified Qualified Code(s): F20.9 - Schizophrenia, unspecified Plan to address problem: Continue medical management, supportive care. (5) Advance care planning Current Visit: Yes Status: Acute Plan to address problem: Disease education done, care plan discussed, diagnoses discussed, prognosis discussed, patient is full code. Patient acknowledges understanding and agreement with care plan, +30 minutes. (6) Preventative health care Current Visit: Yes Status: Acute Plan to address problem: Patient counseled regarding balanced diet, increase physical activity at discharge, consistent carbohydrate diet, weight reduction, patient instructed to follow-up with primary care physician regarding all age and risk factor appropriate screening test. +30 minutes. History Interval history: 57 YO Female with Obesity Hypoventilation Syndrome, HTN, DM, Bipolar Disorder, Schizophrenia, Schizo-Affective Disorder. Consult placed by Dr. Torres for medical management. Patient seen and evaluated in the recreation room. Patient appears to be at baseline level of cognition and function. Hospitalist Physical - Constitutional Vitals: Temp Pulse Resp BP Pulse Ox 97.4 F L 82 16 110/63 95 05/12/22 09:46 05/12/22 10:09 05/12/22 09:46 05/12/22 10:09 05/12/22 09:46 General appearance: Present: no acute distress - EENT Eyes: Present: PERRL ENT: hearing intact - Neck Neck: Present: supple - Respiratory Respiratory effort: normal Respiratory: bilateral: CTA - Cardiovascular Rhythm: regular Heart Sounds: Present: S1 & S2 - Extremities Extremities: no ischemia Peripheral Pulses: within normal limits - Abdominal General gastrointestinal: soft, non-tender, non-distended - Integumentary Integumentary: Present: clear, dry - Psychiatric Psychiatric: cooperative - Neurologic Neurologic: CNII-XII intact Results - Labs CBC & Chem 7: 05/01/22 06:16 05/01/22 06:16 Labs: Laboratory Last Values WBC 4.1 K/mm3 (4.5-11.0) L 05/01/22 06:16 RBC 4.51 M/mm3 (3.65-5.03) 05/01/22 06:16 Hgb 13.4 gm/dl (10.1-14.3) 05/01/22 06:16 Hct 40.9 % (30.3-42.9) 05/01/22 06:16 MCV 91 fl (79-97) 05/01/22 06:16 MCH 30 pg (28-32) 05/01/22 06:16 MCHC 33 % (30-34) 05/01/22 06:16 RDW 13.3 % (13.2-15.2) 05/01/22 06:16 Plt Count 172 K/mm3 (140-440) 05/01/22 06:16 Lymph % (Auto) 35.4 % (13.4-35.0) H 05/01/22 06:16 [place] % (Auto) 8.9 % (0.0-7.3) H 05/01/22 06:16 Eos % (Auto) 2.2 % (0.0-4.3) 05/01/22 06:16 Baso % (Auto) 1.2 % (0.0-1.8) 05/01/22 06:16 Lymph # (Auto) 1.4 K/mm3 (1.2-5.4) 05/01/22 06:16 [place] # (Auto) 0.4 K/mm3 (0.0-0.8) 05/01/22 06:16 Eos # (Auto) 0.1 K/mm3 (0.0-0.4) 05/01/22 06:16 Baso # (Auto) 0.0 K/mm3 (0.0-0.1) 05/01/22 06:16 Seg Neutrophils % 52.3 % (40.0-70.0) 05/01/22 06:16 Seg Neutrophils # 2.1 K/mm3 (1.8-7.7) 05/01/22 06:16 Sodium 138 mmol/L (137-145) 05/01/22 06:16 Potassium 3.8 mmol/L (3.6-5.0) 05/01/22 06:16 Chloride 103.7 mmol/L (98-107) 05/01/22 06:16 Carbon Dioxide 24 mmol/L (22-30) 05/01/22 06:16 Anion Gap 14 mmol/L 05/01/22 06:16 BUN 11 mg/dL (7-17) 05/01/22 06:16 Creatinine 0.6 mg/dL (0.6-1.2) 05/01/22 06:16 Estimated GFR > 60 ml/min 05/01/22 06:16 BUN/Creatinine Ratio 18 % 05/01/22 06:16 Glucose 206 mg/dL (65-100) H 05/01/22 06:16 POC Glucose 160 mg/dL (70-105) H 05/11/22 20:31 Hemoglobin A1c 9.1 % (4-6) H 05/01/22 06:16 Calcium 8.9 mg/dL (8.4-10.2) 05/01/22 06:16 Total Bilirubin 0.60 mg/dL (0.1-1.2) 05/01/22 06:16 AST 20 units/L (5-40) 05/01/22 06:16 ALT 27 units/L (7-56) 05/01/22 06:16 Alkaline Phosphatase 47 units/L (35-129) 05/01/22 06:16 Total Protein 6.4 g/dL (6.3-8.2) 05/01/22 06:16 Albumin 4.3 g/dL (3.9-5) 05/01/22 06:16 Albumin/Globulin Ratio 2.0 % 05/01/22 06:16 Triglycerides 142 mg/dL (2-149) 05/01/22 06:16 Cholesterol 144 mg/dL (50-199) 05/01/22 06:16 LDL Cholesterol Direct 96 mg/dL (50-130) 05/01/22 06:16 HDL Cholesterol 37 mg/dL (40-59) L 05/01/22 06:16 Cholesterol/HDL Ratio 3.89 % 05/01/22 06:16 TSH 0.672 mlU/mL (0.270-4.200) 05/01/22 06:16 Garza/IV: Voiding Method Toilet Active Medications - Current Medications Current Medications: Generic Name Dose Route Start Last Admin Trade Name Freq PRN Reason Stop Dose Admin Bupropion HCl 150 mg 05/06/22 10:00 05/12/22 10:06 Bupropion Xl 150 Mg Tab PO 150 mg QDAY DAGMAR Administration Divalproex Sodium 1,000 mg 05/06/22 10:00 05/12/22 10:[address] 500 Mg Tab PO 1,000 mg BID DAGMAR Administration Fluoxetine HCl 20 mg 05/02/22 10:00 05/12/22 10:06 Fluoxetine 20 Mg Cap PO 20 mg QDAY DAGMAR Administration Insulin Human Lispro 0 unit 05/01/22 07:30 05/12/22 17:07 Insulin Lispro 100 Unit/Ml SUB-Q Not Given ACHS DAGMAR Protocol Lorazepam 2 mg 05/01/22 19:59 05/10/22 17:21 Lorazepam 2 Mg/Ml Vial IM 2 mg Q6H PRN Administration Agitation Melatonin 10 mg 05/11/22 22:00 05/11/22 21:07 Melatonin 5 Mg Tab PO 10 mg QHS DAGMAR Administration Metformin HCl 500 mg 05/02/22 08:00 05/12/22 17:50 Metformin 500 Mg Tab PO Not Given BIDDIAB DAGMAR Olanzapine 2.5 mg 05/09/22 11:00 05/12/22 10:07 Olanzapine 2.5 Mg Tab PO 2.5 mg QDAY DAGMAR Administration Propranolol HCl 10 mg 05/01/22 22:00 05/12/22 10:09 Propranolol 10 Mg Tab PO 10 mg Q12HR DAGMAR Administration Risperidone 2 mg 05/01/22 22:00 05/12/22 10:06 Risperidone 1 Mg Tab PO 2 mg BID DAGMAR Administration Trazodone HCl 150 mg 05/09/22 22:00 05/11/22 21:06 Trazodone 50 Mg Tab PO 150 mg QHS DAGMAR Administration Nutrition/Malnutrition Assess - Dietary Evaluation Nutrition/Malnutrition Findings: Nutrition Notes Start: 05/08/22 19 :14 Freq: Status: Active Protocol: Document 05/08/22 19:14 CONNOR (Rec: 05/08/22 19:22 CONNOR [id number]) Nutrition Notes Need for Assessment generated from: LOS Initial or Follow up Assessment Other Pertinent Diagnosis Bipolar Disorder, Schizoaffective Disorder. Current Diet Cardiac/Consistent Carbohydrates Diet (since B ). Labs/Tests 05/08: N/A. Pertinent Medications 05/08: Nutritionally unremarkable. 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 Weight Status Obese Subjective/Other Information RD consult for LOS assessment. Pt's PO intake of meals has been Good, (100%) and well tolerated, according to ADL notes. Pt is on Room Air, O2 saturation @ 100%, according to Vital Signs notes. Pt presents unspecified bruises as signs of concern for skin risk at this time, accoreding to Physical Assessment History notes. Percent of energy/protein needs met: Prescribed Cardiac/Consistent Carbohydrates Diet provides for energy/protein needs (1, 977 Kcal/86 g) during LOS. Burn Absent Trauma Absent GI Symptoms None Food Allergy No Skin Integrity/Comment Unspecified bruises. 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 No Is Patient Ambulatory and/or Out of Bed Yes REE-([facility]-ambulatory/OOB) [ 2086.019 NUTR.[id number]] Kcal/Kg value to use for calculation 18 Approximate Energy Requirements Using 1795 kcal/Kg Calculation Used for Recommendations Kcal/kg Additional Notes Protein: 0.8-1 g/Kg AdjBW; 65- 81 g/day. Fluids: 1 ml/Kcal, or as per MD. Nutrition Intervention Change Diet Order: Continue Cardiac/Consistent Carbohydrates Diet. Revisit per MD consult or patient Sign Off request: Additional Comments Continue monitoring food tolerance, %PO intake of meals , and BM.
[2022-05-12] MEDS: MELATONIN 5 MG TAB PO SCH (21:49)
[2022-05-12] MEDS: traZODone 50 MG TAB PO SCH (21:51)
[2022-05-13] MEDS: INSULIN LISPRO 100 UNIT/ML SUB-Q SCH (08:53)
[2022-05-13] MEDS: metFORMIN 500 MG TAB PO SCH (08:54)
[2022-05-13] MEDS: risperiDONE 1 MG TAB PO SCH (09:01)
[2022-05-13] MEDS: FLUoxetine 20 MG CAP PO SCH (09:01)
[2022-05-13] MEDS: PROPRANOLOL 10 MG TAB PO SCH (09:01)
[2022-05-13] MEDS: DIVALPROEX DR 500 MG TAB PO SCH (09:01)
[2022-05-13] MEDS: buPROPion XL 150 MG TAB PO SCH (09:02)
[2022-05-13 09:03] VITALS: BP 110/69
--- NOTE | 2022-05-13 12:29 | Discharge Summary ---
Providers - Providers Date of Admission: 05/01/22 01:09 Date of discharge: 05/13/22 Attending physician: JENNIFER KUMAR MD 04/30/22 23:44 Consult to Physician [CONS] Routine Comment: Consulting Provider: VLADIMIR REDDING Physician Instructions: Reason For Exam: H & P Primary care physician: CONTROL ROOM TECHNICIAN Hospitalization Reason for admission: agitation Admitting Diagnosis: F25.9 - SCHIZOAFFECTIVE DISORDER, UNSPECIFIED Condition: Stable Hospital course: The patient was provided inpatient psychiatric treatment with safe and supportive care, medication adjustment, adverse effect monitoring, medical evaluations, medical treatments, assessment and psycho-education. The patient's mood, cognition, behavior, moral support are improved and stabilized. St the time of discharge, the patient had no endangering behavior and no debilitating adverse effects. The patient agreed on potential consequences of no treatment and gave informed consent. Disposition: 01 HOME / SELF CARE / HOMELESS Time spent for discharge: 35 Allergies/Adverse Reactions: Allergies No Known Allergies Allergy (Verified 04/29/22 11:13) Vital Signs: Last Vital Signs Temp 97.4 F L 05/12/22 09:46 Pulse 63 05/13/22 09:01 Resp 16 05/12/22 09:46 BP 110/69 05/13/22 09:01 Pulse Ox 95 05/12/22 09:46 Last Lab: Laboratory Last Values WBC 4.1 K/mm3 (4.5-11.0) L 05/01/22 06:16 RBC 4.51 M/mm3 (3.65-5.03) 05/01/22 06:16 Hgb 13.4 gm/dl (10.1-14.3) 05/01/22 06:16 Hct 40.9 % (30.3-42.9) 05/01/22 06:16 MCV 91 fl (79-97) 05/01/22 06:16 MCH 30 pg (28-32) 05/01/22 06:16 MCHC 33 % (30-34) 05/01/22 06:16 RDW 13.3 % (13.2-15.2) 05/01/22 06:16 Plt Count 172 K/mm3 (140-440) 05/01/22 06:16 Lymph % (Auto) 35.4 % (13.4-35.0) H 05/01/22 06:16 [place] % (Auto) 8.9 % (0.0-7.3) H 05/01/22 06:16 Eos % (Auto) 2.2 % (0.0-4.3) 05/01/22 06:16 Baso % (Auto) 1.2 % (0.0-1.8) 05/01/22 06:16 Lymph # (Auto) 1.4 K/mm3 (1.2-5.4) 05/01/22 06:16 [place] # (Auto) 0.4 K/mm3 (0.0-0.8) 05/01/22 06:16 Eos # (Auto) 0.1 K/mm3 (0.0-0.4) 05/01/22 06:16 Baso # (Auto) 0.0 K/mm3 (0.0-0.1) 05/01/22 06:16 Seg Neutrophils % 52.3 % (40.0-70.0) 05/01/22 06:16 Seg Neutrophils # 2.1 K/mm3 (1.8-7.7) 05/01/22 06:16 Sodium 138 mmol/L (137-145) 05/01/22 06:16 Potassium 3.8 mmol/L (3.6-5.0) 05/01/22 06:16 Chloride 103.7 mmol/L (98-107) 05/01/22 06:16 Carbon Dioxide 24 mmol/L (22-30) 05/01/22 06:16 Anion Gap 14 mmol/L 05/01/22 06:16 BUN 11 mg/dL (7-17) 05/01/22 06:16 Creatinine 0.6 mg/dL (0.6-1.2) 05/01/22 06:16 Estimated GFR > 60 ml/min 05/01/22 06:16 BUN/Creatinine Ratio 18 % 05/01/22 06:16 Glucose 206 mg/dL (65-100) H 05/01/22 06:16 POC Glucose 160 mg/dL (70-105) H 05/11/22 20:31 Hemoglobin A1c 9.1 % (4-6) H 05/01/22 06:16 Calcium 8.9 mg/dL (8.4-10.2) 05/01/22 06:16 Total Bilirubin 0.60 mg/dL (0.1-1.2) 05/01/22 06:16 AST 20 units/L (5-40) 05/01/22 06:16 ALT 27 units/L (7-56) 05/01/22 06:16 Alkaline Phosphatase 47 units/L (35-129) 05/01/22 06:16 Total Protein 6.4 g/dL (6.3-8.2) 05/01/22 06:16 Albumin 4.3 g/dL (3.9-5) 05/01/22 06:16 Albumin/Globulin Ratio 2.0 % 05/01/22 06:16 Triglycerides 142 mg/dL (2-149) 05/01/22 06:16 Cholesterol 144 mg/dL (50-199) 05/01/22 06:16 LDL Cholesterol Direct 96 mg/dL (50-130) 05/01/22 06:16 HDL Cholesterol 37 mg/dL (40-59) L 05/01/22 06:16 Cholesterol/HDL Ratio 3.89 % 05/01/22 06:16 TSH 0.672 mlU/mL (0.270-4.200) 05/01/22 06:16 Core Measure Documentation - Palliative Care Palliative Care/ Comfort Measures: Not Applicable - Core Measures Any of the following diagnoses?: none Exam - Constitutional Vitals: Temp Pulse Resp BP Pulse Ox 97.4 F L 63 16 110/69 95 05/12/22 09:46 05/13/22 09:01 05/12/22 09:46 05/13/22 09:01 05/12/22 09:46 General appearance: Present: no acute distress - EENT Eyes: Present: PERRL, EOM intact ENT: hearing intact, clear oral mucosa - Neck Neck: Present: supple, normal ROM - Respiratory Respiratory effort: normal Plan Activity: advance as tolerated, no driving until cleared by PCP Weight Bearing Status: Weight Bear as Tolerated Care Plan Goals: Maintain good and stable mental health Plan of Treatment: The patient should be compliant with medications, not to use drugs, and not to drink alcohol. The patient understands that if suicidal ideas, homicidal ideas or any endangering feeling arise, the patient should seek assistance including, but not limited to crisis hotline, and emergency room. Assessment: Schizoaffective Disorder Follow up with: PRIMARY CARE, [Primary Care Provider] - 7 Days Prescriptions: traZODone [Desyrel] 150 mg PO QHS #90 tablet Melatonin [Melatonin 5MG TAB] 10 mg PO QHS #[address] [Depakote Dr] 1,000 mg PO BID #120 tablet FLUoxetine [PROzac] 20 mg PO QDAY #30 capsule risperiDONE [RisperDAL] 2 mg PO BID #60 buPROPion XL [Wellbutrin XL] 150 mg PO QDAY #30 tablet OLANzapine [ZyPREXA] 2.5 mg PO QDAY #30 tablet
== END 2022-05-13 10:05 | disposition home or self-care (01) | DRG 885 ==
LOC: 3A 14:15 → UNDOADMIN 14:15 → 5A 05-01 01:09
PROVIDERS: ADMIT Psychiatry & Neurology Psychiatry; ATTEND Psychiatry & Neurology Psychiatry
DX: F25.9 Schizoaffective disorder, unspecified (principal); I10 Essential (primary) hypertension; F31.9 Bipolar disorder, unspecified; E11.9 Type 2 diabetes mellitus without complications; Z83.3 Family history of diabetes mellitus; Z82.49 Family history of ischemic heart disease and other diseases of the circulatory system; Z79.84 Long term (current) use of oral hypoglycemic drugs
CPT/HCPCS: 36415; 71045; 80053; 80061; 80164; 80178; 80185; 80307; 80320; 81001; 82550; 82962; 83036; 83735; 84443; 85025; 85027; 87086; 93005; 96372; 99285; G0378; G0480; J1630; J2060; J3486; U0003

== ENCOUNTER 2022-06-07 01:05 | Inpatient (IN) | payer OTHER, MEDICARE ==
[2022-06-07 01:59] LABS: Basophils % (Auto) 0.1 % (0.0-1.8); Lymphocytes # (Auto) 0.8 K/mm3 (1.2-5.4); Lymphocytes % (Auto) 6.2 % (13.4-35.0); Mean Corpuscular HGB Conc 31 % (30-34); Mean Corpuscular Volume 94 fl (79-97); Monocytes # (Auto) 0.8 K/mm3 (0.0-0.8); Monocytes % (Auto) 6.1 % (0.0-7.3); Red Blood Count 6.79 M/mm3 (3.65-5.03); Red Cell Distribution Width 14.9 % (13.2-15.2)
[2022-06-07 02:14] LABS: Albumin 4.5 g/dL (3.9-5); Calcium 10.2 mg/dL (8.4-10.2)
[2022-06-07 02:15] LABS: Hemoglobin 19.9 gm/dl (10.1-14.3)
[2022-06-07 02:17] LABS: Hematocrit 63.7 % (30.3-42.9); Platelet Count 125 K/mm3 (140-440)
[2022-06-07] MEDS ORDERED: POTASSIUM CHLORIDE ER 20 MEQ TAB PO ONE (02:50)
[2022-06-07] MEDS ORDERED: SODIUM CHLORIDE 0.9% 1000 ML 1,000 ML IV ONE ×2 (02:51)
[2022-06-07] MEDS ORDERED: POTASSIUM CHLORIDE 10 MEQ 10 MEQ/100 ML BAG IV SCH (03:00)
--- NOTE | 2022-06-07 03:00 | Emergency Department Report ---
ED General Adult HPI - General Chief complaint: Hyperglycemia Stated complaint: HYPERGLYCEMIA Source: EMS Mode of arrival: Stretcher Limitations: Other - History of Present Illness Initial comments: Patient is a 57-year-old female with history of diabetes brought in from [facility] by EMS for high blood sugar in the 500s. - Related Data Home Medications Medication Instructions Recorded Confirmed Last Taken FLUoxetine [PROzac] 20 mg PO QDAY 05/01/22 05/01/22 Unknown diphenhydrAMINE HCL [Allergy] 25 mg PO HS 05/01/22 05/01/22 Unknown metFORMIN [Glucophage] 500 mg PO BID 05/01/22 05/01/22 Unknown propranoloL [Inderal] 10 mg PO BID 05/01/22 05/01/22 Unknown Previous Rx's Medication Instructions Recorded Last Taken Type Divalproex Dr [Depakote Dr] 1,000 mg PO BID #120 tablet 05/12/22 Unknown Rx FLUoxetine [PROzac] 20 mg PO QDAY #30 capsule 05/12/22 Unknown Rx Melatonin [Melatonin 5MG TAB] 10 mg PO QHS #60 tablet 05/12/22 Unknown Rx OLANzapine [ZyPREXA] 2.5 mg PO QDAY #30 tablet 05/12/22 Unknown Rx buPROPion XL [Wellbutrin XL] 150 mg PO QDAY #30 tablet 05/12/22 Unknown Rx risperiDONE [RisperDAL] 2 mg PO BID #60 05/12/22 Unknown Rx traZODone [Desyrel] 150 mg PO QHS #90 tablet 05/12/22 Unknown Rx Allergies Allergy/AdvReac Type Severity Reaction Status Date / Time Penicillins Allergy Unknown Verified 06/07/22 01:29 potassium Allergy Unknown Verified 06/07/22 01:29 ED Review of Systems ROS: Stated complaint: HYPERGLYCEMIA Other details as noted in HPI Comment: Unobtainable due to pts medical conditions ED Past Medical Hx - Past Medical History Previous Medical History?: Yes Hx Congestive Heart Failure: No Hx Diabetes: Yes Hx Psychiatric Treatment: Yes Hx Asthma: No Hx COPD: No - Surgical History Past Surgical History?: No - Social History Smoking Status: Never Smoker Substance Use Type: None - Medications Home Medications: Home Medications Medication Instructions Recorded Confirmed Last Taken Type FLUoxetine [PROzac] 20 mg PO QDAY 05/01/22 05/01/22 Unknown History diphenhydrAMINE HCL [Allergy] 25 mg PO HS 05/01/22 05/01/22 Unknown History metFORMIN [Glucophage] 500 mg PO BID 05/01/22 05/01/22 Unknown History propranoloL [Inderal] 10 mg PO BID 05/01/22 05/01/[address] [[place] Dr] 1,000 mg PO BID #120 tablet 05/12/22 Unknown Rx FLUoxetine [PROzac] 20 mg PO QDAY #30 capsule 05/12/22 Unknown Rx Melatonin [Melatonin 5MG TAB] 10 mg PO QHS #60 tablet 05/12/22 Unknown Rx OLANzapine [ZyPREXA] 2.5 mg PO QDAY #30 tablet 05/12/22 Unknown Rx buPROPion XL [Wellbutrin XL] 150 mg PO QDAY #30 tablet 05/12/22 Unknown Rx risperiDONE [RisperDAL] 2 mg PO BID #60 05/12/22 Unknown Rx traZODone [Desyrel] 150 mg PO QHS #90 tablet 05/12/22 Unknown Rx ED Physical Exam - General Limitations: Other General appearance: obtunded - Head Head exam: Present: atraumatic, normocephalic - Eye Eye exam: Present: PERRL - ENT ENT exam: Present: mucous membranes dry - Respiratory Respiratory exam: Present: normal lung sounds bilaterally. Absent: respiratory distress - Cardiovascular Cardiovascular Exam: Present: normal rhythm, tachycardia, normal heart sounds - GI/Abdominal GI/Abdominal exam: Present: soft. Absent: distended - Rectal Rectal exam: Present: deferred - Neurological Exam Neurological exam: Present: altered - Skin Skin exam: Present: warm, dry, intact, normal color, other (Decreased skin turgor) ED Course Vital Signs 06/07/22 06/07/22 06/07/22 01:25 01:46 02:00 Temperature Pulse Rate 126 H 124 H 123 H Respiratory 20 25 H 25 H Rate Blood Pressure 125/85 127/91 Blood Pressure 118/90 [Left] O2 Sat by Pulse 95 100 98 Oximetry 06/07/22 06/07/22 02:16 02:56 Temperature 98.0 F Pulse Rate 123 H Respiratory 27 H Rate Blood Pressure 124/86 Blood Pressure [Left] O2 Sat by Pulse 99 Oximetry ED Medical Decision Making - Lab Data Result diagrams: 06/07/22 01:47 06/07/22 01:47 - Medical Decision Making Patient brought in by EMS for hyperglycemia. Serum glucose of 633. Serum sodium 160. Serum potassium is 3.3. CO2 is normal. Likely hyperosmolar nonketotic coma. IV fluids ordered along with insulin. Potassium withheld as patient has potassium listed as an allergy. Will admit to hospitalist. Critical care attestation.: If time is entered above; I have spent that time in minutes in the direct care of this critically ill patient, excluding procedure time. ED Disposition Clinical Impression: Hyperosmolar (nonketotic) coma, Hypernatremia, Hypokalemia Disposition: ADMITTED INPATIENT Is pt being admited?: Yes Condition: Fair Instructions: Diabetes Mellitus Type 2 in Adults (ED)
[2022-06-07] MEDS ORDERED: IBUPROFEN 600 MG TAB PO PRN (03:06)
[2022-06-07] MEDS ORDERED: MORPHINE 2 MG/1 ML INJ IV PRN ×2 (03:06→04:36)
[2022-06-07] MEDS ORDERED: DEXTROSE 50% IN WATER (25GM) 50 ML SYRINGE IV PRN ×2 (03:16→04:42)
[2022-06-07] MEDS: INSULIN REGULAR, HUMAN 100 UNITS in SODIUM CHLORIDE 0.9% 99 ML IV SCH (04:22)
[2022-06-07 04:23] LABS: Calcium 9.6 mg/dL (8.4-10.2)
[2022-06-07] MEDS ORDERED: ALBUTEROL 2.5 MG/3 ML NEBU IH PRN (04:36)
[2022-06-07] MEDS ORDERED: ACETAMINOPHEN 325 MG TAB PO PRN (04:36)
[2022-06-07] MEDS ORDERED: ONDANSETRON 4 MG/2 ML INJ IV PRN (04:36)
[2022-06-07] MEDS ORDERED: MORPHINE 4 MG/1 ML INJ IV PRN (04:36)
[2022-06-07] MEDS ORDERED: SODIUM CHLORIDE 0.9% 500 ML 500 ML IV ONE (04:41)
--- NOTE | 2022-06-07 04:48 | History and Physical Report ---
History of Present Illness Date of examination: 06/07/22 Date of admission: 06/07/22 Chief complaint: Hyperglycemia History of present illness: 57-year-old female with history of diabetes and bipolar disorder and schizophrenia was brought in from [place] by EMS for high blood sugar in the 500s. Other history is unobtainable due to patient medical condition. In the emergency room patient is found to have hemoglobin of 6.79, hematocrit 19.9 MCV 63.7 and sodium 161, potassium 3.4, bicarb 22, anion gap 25, BUN 102 and creatinine 1.8 and glucose 590. Likely hyperosmolar nonketotic coma. IV fluids ordered along with insulin. Potassium withheld as patient has potassium listed as an allergy. Were going to admit the patient. We will put the patient on IV fluid insulin drip. We will do the serial BMP, will consult critical care evaluation Past History Past Medical History: diabetes, hypertension, other (Psychiatric history) Past Surgical History: No surgical history Social history: no significant social history Family history: diabetes Medications and Allergies Allergies Allergy/AdvReac Type Severity Reaction Status Date / Time Penicillins Allergy Unknown Verified 06/07/22 01:29 potassium Allergy Unknown Verified 06/07/22 01:29 Home Medications Medication Instructions Recorded Confirmed Last Taken Type FLUoxetine [PROzac] 20 mg PO QDAY 05/01/22 05/01/22 Unknown History diphenhydrAMINE HCL [Allergy] 25 mg PO HS 05/01/22 05/01/22 Unknown History metFORMIN [Glucophage] 500 mg PO BID 05/01/22 05/01/22 Unknown History propranoloL [Inderal] 10 mg PO BID 05/01/22 05/01/22 Unknown History Divalproex [[place]] 1,000 mg PO BID #120 tablet 05/12/22 Unknown Rx FLUoxetine [PROzac] 20 mg PO QDAY #30 capsule 05/12/22 Unknown Rx Melatonin [Melatonin 5MG TAB] 10 mg PO QHS #60 tablet 05/12/22 Unknown Rx OLANzapine [ZyPREXA] 2.5 mg PO QDAY #30 tablet 05/12/22 Unknown Rx buPROPion XL [Wellbutrin XL] 150 mg PO QDAY #30 tablet 05/12/22 Unknown Rx risperiDONE [RisperDAL] 2 mg PO BID #60 05/12/22 Unknown Rx traZODone [Desyrel] 150 mg PO QHS #90 tablet 05/12/22 Unknown Rx Active Meds: Active Medications Acetaminophen (Acetaminophen 325 Mg Tab) 650 mg PO Q4H PRN PRN Reason: Pain MILD(1-3)/Fever >100.5/[place]Y Albuterol (Albuterol 2.5 Mg/3 Ml Nebu) 2.5 mg IH Q3HRT PRN PRN Reason: Shortness Of Breath Albuterol/Ipratropium (Ipratropium/Albuterol Sulfate 3 Ml Ampul.Neb) 1 ampul IH Q6HRT [facility] Bupropion HCl (Bupropion Xl 150 Mg Tab) 150 mg PO QDAY [facility] Dextrose (Dextrose 50% In Water (25gm) 50 Ml Syringe) 0 ml IV Q30MIN PRN; Protocol PRN Reason: Hypoglycemia Dextrose (Dextrose 50% In Water (25gm) 50 Ml Syringe) 0 ml IV Q30MIN PRN; Protocol PRN Reason: Hypoglycemia Diphenhydramine HCl (Diphenhydramine 25 Mg Cap) 25 mg PO HS [facility] Divalproex Sodium (Divalproex Dr 500 Mg Tab) 1,000 mg PO BID [facility] Famotidine (Famotidine 20 Mg/2 Ml Inj) 20 mg IV BID [facility] Fluoxetine HCl (Fluoxetine 20 Mg Cap) 20 mg PO QDAY [facility] Insulin Human Regular 100 (units/ Sodium Chloride) 100 mls @ 7 mls/hr IV TITR [facility]; Protocol Last Admin: 06/07/22 04:22 Dose: 8 units/hr, 8 mls/hr Sodium Chloride (Nacl 0.45% 1000 Ml) 1,000 mls @ 150 mls/hr IV DIRECT [facility] Sodium Chloride (Nacl 0.9% 500 Ml) 500 mls @ 0 mls/hr IV ONCE ONE Stop: 06/07/22 04:42 Insulin Human Regular 100 (units/ Sodium Chloride) 100 mls @ 1 mls/hr IV TITR [facility]; Protocol Ibuprofen (Ibuprofen 600 Mg Tab) 600 mg PO Q6H PRN PRN Reason: Pain, Mild (1-3) Melatonin (Melatonin 5 Mg Tab) 10 mg PO QHS [facility] Miscellaneous Medication (Risperidone [Risperdal]) 2 mg PO BID [facility] Morphine Sulfate (Morphine 2 Mg/1 Ml Inj) 2 mg IV Q4H PRN PRN Reason: Pain, Moderate (4-6) Morphine Sulfate (Morphine 2 Mg/1 Ml Inj) 2 mg IV Q4H PRN PRN Reason: Pain, Moderate (4-6) Morphine Sulfate (Morphine 4 Mg/1 Ml Inj) 4 mg IV Q4H PRN PRN Reason: Pain , Severe (7-10) Olanzapine (Olanzapine 2.5 Mg Tab) 2.5 mg PO QDAY [facility] Ondansetron HCl (Ondansetron 4 Mg/2 Ml Inj) 4 mg IV Q8H PRN PRN Reason: Nausea And Vomiting Propranolol HCl (Propranolol 10 Mg Tab) 10 mg PO BID [facility] Sodium Chloride (Sodium Chloride 0.9% 10 Ml Flush Syringe) 10 ml IV BID [facility] Sodium Chloride (Sodium Chloride 0.9% 10 Ml Flush Syringe) 10 ml IV PRN PRN PRN Reason: LINE FLUSH Sodium Chloride (Sodium Chloride 0.9% 10 Ml Flush Syringe) 10 ml IV BID [facility] Sodium Chloride (Sodium Chloride 0.9% 10 Ml Flush Syringe) 10 ml IV PRN PRN PRN Reason: LINE FLUSH Trazodone HCl (Trazodone 50 Mg Tab) 150 mg PO QHS [facility] Review of Systems All systems: negative Constitutional: fatigue, malaise, lethargy Exam - Constitutional Vitals: Temp Pulse Resp BP Pulse Ox 98.0 F 123 H 27 H 124/86 99 06/07/22 02:56 06/07/22 02:16 06/07/22 02:16 06/07/22 02:16 06/07/22 02:16 General appearance: Present: no acute distress, well-nourished - EENT Eyes: Present: PERRL ENT: hearing intact, clear oral mucosa - Neck Neck: Present: supple, normal ROM - Respiratory Respiratory effort: normal Respiratory: bilateral: CTA - Cardiovascular Heart Sounds: Present: S1 & S2. Absent: rub, click - Extremities Extremities: pulses symmetrical, No edema Peripheral Pulses: within normal limits - Abdominal General gastrointestinal: Present: soft, non-tender, non-distended, normal bowel sounds Female genitourinary: Present: normal - Integumentary Integumentary: Present: clear, warm, dry - Musculoskeletal Musculoskeletal: gait normal, strength equal bilaterally - Psychiatric Psychiatric: appropriate mood/affect, intact judgment & insight - Neurologic Neurologic: CNII-XII intact, moves all extremities Results - Labs CBC & Chem 7: 06/07/22 01:47 06/07/22 03:38 Labs: Laboratory Last Values WBC 12.4 K/mm3 (4.5-11.0) H 06/07/22 01:47 RBC 6.79 M/mm3 (3.65-5.03) H 06/07/22 01:47 Hgb 19.9 gm/dl (10.1-14.3) H 06/07/22 01:47 Hct 63.7 % (30.3-42.9) H* 06/07/22 01:47 MCV 94 fl (79-97) 06/07/22 01:47 MCH 29 pg (28-32) 06/07/22 01:47 MCHC 31 % (30-34) 06/07/22 01:47 RDW 14.9 % (13.2-15.2) 06/07/22 01:47 Plt Count 125 K/mm3 (140-440) L 06/07/22 01:47 Lymph % (Auto) 6.2 % (13.4-35.0) L 06/07/22 01:47 [place] % (Auto) 6.1 % (0.0-7.3) 06/07/22 01:47 Eos % (Auto) 0.0 % (0.0-4.3) 06/07/22 01:47 Baso % (Auto) 0.1 % (0.0-1.8) 06/07/22 01:47 Lymph # (Auto) 0.8 K/mm3 (1.2-5.4) L 06/07/22 01:47 [place] # (Auto) 0.8 K/mm3 (0.0-0.8) 06/07/22 01:47 Eos # (Auto) 0.0 K/mm3 (0.0-0.4) 06/07/22 01:47 Baso # (Auto) 0.0 K/mm3 (0.0-0.1) 06/07/22 01:47 Seg Neutrophils % 87.6 % (40.0-70.0) H 06/07/22 01:47 Seg Neutrophils # 10.9 K/mm3 (1.8-7.7) H 06/07/22 01:47 VBG pH 7.348 (7.320-7.420) 06/07/22 01:47 Sodium 161 mmol/L (137-145) H* 06/07/22 03:38 Potassium 3.4 mmol/L (3.6-5.0) L 06/07/22 03:38 Chloride 117.2 mmol/L (98-107) H 06/07/22 03:38 Carbon Dioxide 22 mmol/L (22-30) 06/07/22 03:38 Anion Gap 25 mmol/L 06/07/22 03:38 BUN 102 mg/dL (7-17) H 06/07/22 03:38 Creatinine 1.8 mg/dL (0.6-1.2) H 06/07/22 03:38 Estimated GFR 29 ml/min 06/07/22 03:38 BUN/Creatinine Ratio 57 % 06/07/22 03:38 Glucose 590 mg/dL (65-100) H* 06/07/22 03:38 Calcium 9.6 mg/dL (8.4-10.2) 06/07/22 03:38 Phosphorus 6.50 mg/dL (2.5-4.5) H 06/07/22 03:38 Magnesium 3.30 mg/dL (1.7-2.3) H 06/07/22 03:38 Total Bilirubin 1.00 mg/dL (0.1-1.2) 06/07/22 01:47 AST 29 units/L (5-40) 06/07/22 01:47 ALT 57 units/L (7-56) H 06/07/22 01:47 Alkaline Phosphatase 86 units/L (35-129) 06/07/22 01:47 Total Protein 7.5 g/dL (6.3-8.2) 06/07/22 01:47 Albumin 4.5 g/dL (3.9-5) 06/07/22 01:47 Albumin/Globulin Ratio 1.5 % 06/07/22 01:47 Assessment and Plan VTE prophylaxis?: Mechanical Plan of care discussed with patient/family: Yes - Patient Problems (1) Hyperosmolar (nonketotic) coma Current Visit: Yes Status: Acute Plan to address problem: Admit the patient to the critical care. NPO. Half-normal saline at the rate of 150 cc/h. Insulin drip as per protocol. Serial BMP. Reconsult critical care evaluation. Diabetic education (2) Hypernatremia Current Visit: Yes Status: Acute Plan to address problem: Half-normal saline at the rate of 150 cc/h. Serial BMP. consult critical care evaluation. (3) Hypokalemia Current Visit: Yes Status: Acute Plan to address problem: We are not supplementing potassium due to patient allergic to potassium. Critical care evaluation (4) Bipolar 1 disorder Current Visit: No Status: Acute Plan to address problem: Stable. We continue the psych med (5) Diabetes Current Visit: No Status: Acute Plan to address problem: Half-normal saline at the rate of 150 cc/h. Insulin drip as per protocol. Serial BMP. Diabetic education (6) HTN (hypertension) Current Visit: No Status: Acute Qualifiers: Hypertension type: primary hypertension Qualified Code(s): I10 - Essential (primary) hypertension Plan to address problem: Hydralazine 10 mg IV every 6 hours as needed. We continue the home medication (7) Schizophrenia Current Visit: No Status: Acute Qualifiers: Schizophrenia type: unspecified Qualified Code(s): F20.9 - Schizophrenia, unspecified Plan to address problem: Stable. We continue the psych medication. Outpatient follow-up was psych (8) DVT prophylaxis Current Visit: Yes Status: Acute Plan to address problem: SCD for DVT prophylaxis. Pepcid 20 mg IV every 12 hours for GI prophylaxis. Patient is a full code
[2022-06-07] MEDS ORDERED: INSULIN REGULAR, HUMAN 100 UNITS in SODIUM CHLORIDE 0.9% 99 ML IV SCH (05:00)
[2022-06-07] MEDS ORDERED: SODIUM CHLORIDE 0.45% 1000 ML 1,000 ML IV SCH (05:00)
[2022-06-07] MEDS: IPRATROPIUM/ALBUTEROL SULFATE 3 ML AMPUL.NEB IH SCH ×5 (07:16→20:22)
--- NOTE | 2022-06-07 09:28 | Progress Note ---
Assessment and Plan Assessment and plan: History of present illness: 57-year-old female with history of diabetes and bipolar disorder and schizophrenia was [place] in from [place] by EMS for high blood sugar in the 500s. Other history is unobtainable due to patient medical condition. In the emergency room patient is found to have hemoglobin of 6.79, hematocrit 19.9 MCV 63.7 and sodium 161, potassium 3.4, bicarb 22, anion gap 25, BUN 102 and creatinine 1.8 and glucose 590. Likely hyperosmolar nonketotic coma. IV fluids ordered along with insulin. Potassium withheld as patient has potassium listed as an allergy. Were going to admit the patient. We will put the patient on IV fluid insulin drip. We will do the serial BMP, will consult critical care evaluation Assessment #Hyperosmolar nonketotic coma #Acute metabolic encephalopathy #Metabolic acidosis #Hypernatremia #Hypokalemia #Acute kidney injury due to vasomotor nephropathy #SIRS POA #Bipolar 1 disorder #Type II diabetes with hyperglycemia #Polycythemia #Hemoconcentration #Essential hypertension #Schizophrenia Plan: - Etiology likely medication noncompliance or poor follow up while incarcerated - Altered mental status likely 2/2 metabolic derrangement. - UA and UDS pending. - insulin gtt, transition to lantus once glycemic control achieved. - bmp q4hr - aggressive IVF hydration, Na elevated may need hypotonic solution, D5w with 40 MEQ. Currently hydrating with LR - Would recommend sodium correction no more than 8MEQ q24hr. - ANNIE etiology likely prerenal. aggressive hydration recommended. - CCM consulted. The high probability of a clinically significant, sudden or life threatening deterioration of the [multi] system(s) required my full and direct attention, intervention and personal management. The aggregate critical care time was [60] minutes. This time is in addition to time spent performing reported procedures but includes the following: [x] Data Review and interpretation [x] Patient assessment and monitoring of vital signs [x] Documentation [x] Medication orders and management History Interval history: confused, altered on bedside exam. Hospitalist Physical - Physical exam Narrative exam: Physical Exam: VITAL SIGNS: Reviewed. GENERAL: The patient appears normally developed, Vital signs as documented. HEAD: No signs of head trauma. EYES: Pupils are equal. Extraocular motions intact. EARS: dry oropharynx NECK: No adenopathy, no JVD. CHEST: Chest with clear breath sounds bilaterally. No wheezes, rales, or rhonchi. CARDIAC: Regular rate and rhythm. S1 and S2, without murmurs, gallops, or rubs. VASCULAR: No Edema. Peripheral pulses normal and equal in all extremities. ABDOMEN: Soft, non tender and non distended. No rebound or guarding, and no masses palpated. Bowel Sounds normal. MUSCULOSKELETAL: Good range of motion of all major joints. Extremities without clubbing, cyanosis or edema. NEUROLOGIC EXAM: obtunded, oriented x 0 on my enocunter however patient gave RN her name during her exam.. no focal sensory or strength deficits. PSYCHIATRIC: Mood normal. SKIN: detail exam as documented in skin assessment - Constitutional Vitals: Temp Pulse Resp BP Pulse Ox 98.0 F 118 H 24 115/80 98 06/07/22 02:56 06/07/22 07:16 06/07/22 07:16 06/07/22 06:46 06/07/22 07:16 General appearance: Present: no acute distress, well-nourished Results - Labs CBC & Chem 7: 06/07/22 01:47 06/07/22 03:38 Labs: Laboratory Last Values WBC 12.4 K/mm3 (4.5-11.0) H 06/07/22 01:47 RBC 6.79 M/mm3 (3.65-5.03) H 06/07/22 01:47 Hgb 19.9 gm/dl (10.1-14.3) H 06/07/22 01:47 Hct 63.7 % (30.3-42.9) H* 06/07/22 01:47 MCV 94 fl (79-97) 06/07/22 01:47 MCH 29 pg (28-32) 06/07/22 01:47 MCHC 31 % (30-34) 06/07/22 01:47 RDW 14.9 % (13.2-15.2) 06/07/22 01:47 Plt Count 125 K/mm3 (140-440) L 06/07/22 01:47 Lymph % (Auto) 6.2 % (13.4-35.0) L 06/07/22 01:47 [place] % (Auto) 6.1 % (0.0-7.3) 06/07/22 01:47 Eos % (Auto) 0.0 % (0.0-4.3) 06/07/22 01:47 Baso % (Auto) 0.1 % (0.0-1.8) 06/07/22 01:47 Lymph # (Auto) 0.8 K/mm3 (1.2-5.4) L 06/07/22 01:47 [place] # (Auto) 0.8 K/mm3 (0.0-0.8) 06/07/22 01:47 Eos # (Auto) 0.0 K/mm3 (0.0-0.4) 06/07/22 01:47 Baso # (Auto) 0.0 K/mm3 (0.0-0.1) 06/07/22 01:47 Seg Neutrophils % 87.6 % (40.0-70.0) H 06/07/22 01:47 Seg Neutrophils # 10.9 K/mm3 (1.8-7.7) H 06/07/22 01:47 VBG pH 7.348 (7.320-7.420) 06/07/22 01:47 Sodium 161 mmol/L (137-145) H* 06/07/22 03:38 Potassium 3.4 mmol/L (3.6-5.0) L 06/07/22 03:38 Chloride 117.2 mmol/L (98-107) H 06/07/22 03:38 Carbon Dioxide 22 mmol/L (22-30) 06/07/22 03:38 Anion Gap 25 mmol/L 06/07/22 03:38 BUN 102 mg/dL (7-17) H 06/07/22 03:38 Creatinine 1.8 mg/dL (0.6-1.2) H 06/07/22 03:38 Estimated GFR 29 ml/min 06/07/22 03:38 BUN/Creatinine Ratio 57 % 06/07/22 03:38 Glucose 590 mg/dL (65-100) H* 06/07/22 03:38 POC Glucose 244 mg/dL (70-105) H 06/07/22 08:59 Calcium 9.6 mg/dL (8.4-10.2) 06/07/22 03:38 Phosphorus 6.50 mg/dL (2.5-4.5) H 06/07/22 03:38 Magnesium 3.30 mg/dL (1.7-2.3) H 06/07/22 03:38 Total Bilirubin 1.00 mg/dL (0.1-1.2) 06/07/22 01:47 AST 29 units/L (5-40) 06/07/22 01:47 ALT 57 units/L (7-56) H 06/07/22 01:47 Alkaline Phosphatase 86 units/L (35-129) 06/07/22 01:47 Total Protein 7.5 g/dL (6.3-8.2) 06/07/22 01:47 Albumin 4.5 g/dL (3.9-5) 06/07/22 01:47 Albumin/Globulin Ratio 1.5 % 06/07/22 01:47 Active Medications - Current Medications Current Medications: Generic Name Dose Route Start Last Admin Trade Name Freq PRN Reason Stop Dose Admin Acetaminophen 650 mg 06/07/22 04:36 Acetaminophen 325 Mg Tab PO Q4H PRN Pain MILD(1-3)/Fever >100.5/[place] Albuterol 2.5 mg 06/07/22 04:36 Albuterol 2.5 Mg/3 Ml Nebu IH Q3HRT PRN Shortness Of Breath Albuterol/Ipratropium 1 ampul 06/07/22 08:00 06/07/22 08:06 Ipratropium/Albuterol Sulfate 3 Ml Ampul.Neb IH Not Given Q6HRT [facility] Bupropion HCl 150 mg 06/07/22 10:00 Bupropion Xl 150 Mg Tab PO QDAY [facility] Dextrose 0 ml 06/07/22 04:42 Dextrose 50% In Water (25gm) 50 Ml Syringe IV Q30MIN PRN Hypoglycemia Protocol Diphenhydramine HCl 25 mg 06/07/22 22:00 Diphenhydramine 25 Mg Cap PO HS [facility] Divalproex Sodium 1,000 mg 06/07/22 10:[address] 500 Mg Tab PO BID [facility] Famotidine 20 mg 06/07/22 10:00 Famotidine 20 Mg/2 Ml Inj IV DAILY [facility] Fluoxetine HCl 20 mg 06/07/22 10:00 Fluoxetine 20 Mg Cap PO QDAY [facility] Insulin Human Regular 100 100 mls @ 7 mls/hr 06/07/22 04:00 06/07/22 09:01 units/ Sodium Chloride IV 4 units/hr TITR [facility] 4 mls/hr Titration Protocol 7 UNITS/HR Sodium Chloride 1,000 mls @ 150 mls/hr 06/07/22 05:00 Nacl 0.45% 1000 Ml IV DIRECT [facility] Ibuprofen 600 mg 06/07/22 03:06 Ibuprofen 600 Mg Tab PO Q6H PRN Pain, Mild (1-3) Melatonin 10 mg 06/07/22 22:00 Melatonin 5 Mg Tab PO QHS [facility] Morphine Sulfate 2 mg 06/07/22 04:36 Morphine 2 Mg/1 Ml Inj IV Q4H PRN Pain, Moderate (4-6) Morphine Sulfate 4 mg 06/07/22 04:36 Morphine 4 Mg/1 Ml Inj IV Q4H PRN Pain , Severe (7-10) Olanzapine 2.5 mg 06/07/22 10:00 Olanzapine 2.5 Mg Tab PO QDAY [facility] Ondansetron HCl 4 mg 06/07/22 04:36 Ondansetron 4 Mg/2 Ml Inj IV Q8H PRN Nausea And Vomiting Propranolol HCl 10 mg 06/07/22 10:00 Propranolol 10 Mg Tab PO BID [facility] Risperidone 2 mg 06/07/22 10:00 Risperidone 1 Mg Tab PO BID [facility] Sodium Chloride 10 ml 06/07/22 10:00 Sodium Chloride 0.9% 10 Ml Flush Syringe IV BID [facility] Sodium Chloride 10 ml 06/07/22 04:36 Sodium Chloride 0.9% 10 Ml Flush Syringe IV PRN PRN LINE FLUSH Trazodone HCl 150 mg 06/07/22 22:00 Trazodone 50 Mg Tab PO QHS [facility]
[2022-06-07] MEDS ORDERED: LACTATED RINGERS 1,000 ML IV SCH (09:30)
[2022-06-07] MEDS: DIVALPROEX DR 500 MG TAB PO SCH ×2 (09:54→22:08)
[2022-06-07] MEDS: PROPRANOLOL 10 MG TAB PO SCH ×2 (09:54→22:08)
[2022-06-07] MEDS: FLUoxetine 20 MG CAP PO SCH (09:55)
[2022-06-07] MEDS: buPROPion XL 150 MG TAB PO SCH (09:55)
[2022-06-07] MEDS: risperiDONE 1 MG TAB PO SCH ×2 (09:55→22:09)
[2022-06-07] MEDS ORDERED: FAMOTIDINE 20 MG/2 ML INJ IV SCH (10:00)
[2022-06-07] MEDS ORDERED: NON-FORMULARY EACH (Risperidone [Risperdal] 2 MG Tablet) PO SCH (10:00)
[2022-06-07] MEDS: FAMOTIDINE 20 MG/2 ML INJ IV SCH (10:03)
[2022-06-07 13:06] LABS: Calcium 9.6 mg/dL (8.4-10.2)
[2022-06-07] MEDS: POTASSIUM CHLORIDE 40 MEQ in DEXTROSE 5% IN WATER 1,000 ML IV SCH (14:02)
[2022-06-07 14:34] LABS: Hyaline Casts,Urine 66 /LPF; Mucus,Urine FEW /HPF
[2022-06-07 18:02] LABS: Bilirubin,Urine 4+ (Negative); Color,Urine Amber (Yellow)
[2022-06-07 18:03] LABS: Blood,Urine Negative (Negative); Ictotest,Urine Negative (Negative)
[2022-06-07 18:17] LABS: RBC,Urine < 1.0 /HPF (0.0-6.0)
[2022-06-07] MEDS: MELATONIN 5 MG TAB PO SCH (22:08)
[2022-06-07] MEDS: diphenhydrAMINE 25 MG CAP PO SCH (22:08)
[2022-06-07] MEDS: traZODone 50 MG TAB PO SCH (22:08)
[2022-06-07 22:52] LABS: Calcium 9.1 mg/dL (8.4-10.2)
[2022-06-08 00:08] LABS: Blood Urea Nitrogen TNR mg/dL (7-17)
[2022-06-08 00:09] LABS: Calcium TNR mg/dL (8.4-10.2)
[2022-06-08 00:11] LABS: BUN/Creatinine Ratio TNR; Hemolysis Index 1226
[2022-06-08 01:08] LABS: Calcium 9.3 mg/dL (8.4-10.2)
[2022-06-08] MEDS: IPRATROPIUM/ALBUTEROL SULFATE 3 ML AMPUL.NEB IH SCH ×4 (01:49→19:31)
[2022-06-08] MEDS: INSULIN REGULAR, HUMAN 100 UNITS in SODIUM CHLORIDE 0.9% 99 ML IV SCH (03:34)
[2022-06-08 04:04] LABS: Basophils % (Auto) 0.2 % (0.0-1.8); Eosinophils # (Auto) 0.1 K/mm3 (0.0-0.4); Eosinophils % (Auto) 0.7 % (0.0-4.3); Hemoglobin 16.8 gm/dl (10.1-14.3); Lymphocytes # (Auto) 1.2 K/mm3 (1.2-5.4); Lymphocytes % (Auto) 11.1 % (13.4-35.0); Mean Corpuscular HGB Conc 32 % (30-34); Mean Corpuscular Volume 93 fl (79-97); Monocytes # (Auto) 0.6 K/mm3 (0.0-0.8); Monocytes % (Auto) 5.7 % (0.0-7.3); Red Blood Count 5.62 M/mm3 (3.65-5.03)
[2022-06-08 04:08] LABS: Platelet Count 78 K/mm3 (140-440)
[2022-06-08 04:26] LABS: Calcium 9.1 mg/dL (8.4-10.2)
--- NOTE | 2022-06-08 08:57 | Progress Note ---
Assessment and Plan Assessment and plan: History of present illness: 57-year-old female with history of diabetes and bipolar disorder and schizophrenia was brought in from [facility] by [facility] for high blood sugar in the 500s. Other history is unobtainable due to patient medical condition. In the emergency room patient is found to have hemoglobin of 6.79, hematocrit 19.9 MCV 63.7 and sodium 161, potassium 3.4, bicarb 22, anion gap 25, BUN 102 and creatinine 1.8 and glucose 590. Likely hyperosmolar nonketotic coma. IV fluids ordered along with insulin. Potassium withheld as patient has potassium listed as an allergy. Were going to admit the patient. We will put the patient on IV fluid insulin drip. We will do the serial BMP, will consult critical care evaluation Hospital Course: 06/08: Patient remains confused and somnolent but protecting airway. GAP re- opened. Will need to continue insulin gtt. Sodium slowly downtrending, continue D5W + 40 MEQ K infusion. Strict monitoring of sodium so as to not overcorrect. BMP ordered q4hr. Once AG closed, can downgrade to medical floor. Assessment #Hyperosmolar nonketotic coma #Acute metabolic encephalopathy - etiology likely HHS and severe hypernatremia - UDS pending - UA only demonstrates +2 glucose, consistent with diagnosis. #Metabolic acidosis #Hypernatremia - Na: 167 on admission #Hypokalemia - K = 3.3 on admission #Acute kidney injury due to vasomotor nephropathy (improved) #SIRS POA #Bipolar 1 disorder #Type II diabetes with hyperglycemia #Polycythemia #Hemoconcentration - DO NOT TRANSFUSE THIS PATIENT THEY ARE HEMOCONCENTRATED. ORDER GIVEN BY JIMI IN ERROR AND I AM UNABLE TO DC. I HAVE ALERTED CARE TEAM AND BLOOD BANK HAS BEEN NOTIFIED THAT PATIENT DOES NOT REQUIRE RBC TRANSFUSION #Essential hypertension #Schizophrenia Plan: - Etiology likely medication noncompliance or poor follow up while incarcerated - Altered mental status likely 2/2 metabolic derrangement. - insulin gtt, transition to lantus once glycemic control achieved. - bmp q4hr - aggressive IVF hydration, Na elevated to 167 on admission, now downtrending. continue D5w with 40 MEQ. - Would recommend sodium correction no more than 8MEQ q24hr. - ANNIE etiology likely prerenal. aggressive hydration recommended. - CCM following The high probability of a clinically significant, sudden or life threatening deterioration of the [multi] system(s) required my full and direct attention, intervention and personal management. The aggregate critical care time was [60] minutes. This time is in addition to time spent performing reported procedures but includes the following: [x] Data Review and interpretation [x] Patient assessment and monitoring of vital signs [x] Documentation [x] Medication orders and management History Interval history: Somnolent, obtunded. only arousable to sternal rub. She is however protecting airway. Hospitalist Physical - Physical exam Narrative exam: Physical Exam: VITAL SIGNS: Reviewed. GENERAL: The patient appears normally developed, Vital signs as documented. HEAD: No signs of head trauma. EYES: Pupils are equal. Extraocular motions intact. EARS: dry oropharynx NECK: No adenopathy, no JVD. CHEST: Chest with clear breath sounds bilaterally. No wheezes, rales, or rhonchi. CARDIAC: Regular rate and rhythm. S1 and S2, without murmurs, gallops, or rubs. VASCULAR: No Edema. Peripheral pulses normal and equal in all extremities. ABDOMEN: Soft, non tender and non distended. No rebound or guarding, and no masses palpated. Bowel Sounds normal. MUSCULOSKELETAL: Good range of motion of all major joints. Extremities without clubbing, cyanosis or edema. NEUROLOGIC EXAM: obtunded, oriented x 0 on my encounter however patient gave RN her name during her exam. Arousable to sternal rub. no focal sensory or strength deficits. PSYCHIATRIC: unable to assess SKIN: detail exam as documented in skin assessment - Constitutional Vitals: Temp Pulse Resp BP Pulse Ox 97.5 F L 98 H 17 131/88 99 06/07/22 18:16 06/08/22 07:00 06/08/22 07:00 06/08/22 07:00 06/08/22 07:00 General appearance: Present: no acute distress, well-nourished Results - Labs CBC & Chem 7: 06/08/22 03:51 06/08/22 10:00 Labs: Laboratory Last Values WBC 10.6 K/mm3 (4.5-11.0) 06/08/22 03:51 RBC 5.62 M/mm3 (3.65-5.03) H 06/08/22 03:51 Hgb 16.8 gm/dl (10.1-14.3) H D 06/08/22 03:51 Hct 52.0 % (30.3-42.9) H D 06/08/22 03:51 MCV 93 fl (79-97) 06/08/22 03:51 MCH 30 pg (28-32) 06/08/22 03:51 MCHC 32 % (30-34) 06/08/22 03:51 RDW 14.0 % (13.2-15.2) 06/08/22 03:51 Plt Count 78 K/mm3 (140-440) L 06/08/22 03:51 Lymph % (Auto) 11.1 % (13.4-35.0) L 06/08/22 03:51 [place] % (Auto) 5.7 % (0.0-7.3) 06/08/22 03:51 Eos % (Auto) 0.7 % (0.0-4.3) 06/08/22 03:51 Baso % (Auto) 0.2 % (0.0-1.8) 06/08/22 03:51 Lymph # (Auto) 1.2 K/mm3 (1.2-5.4) 06/08/22 03:51 [place] # (Auto) 0.6 K/mm3 (0.0-0.8) 06/08/22 03:51 Eos # (Auto) 0.1 K/mm3 (0.0-0.4) 06/08/22 03:51 Baso # (Auto) 0.0 K/mm3 (0.0-0.1) 06/08/22 03:51 Seg Neutrophils % 82.3 % (40.0-70.0) H 06/08/22 03:51 Seg Neutrophils # 8.7 K/mm3 (1.8-7.7) H 06/08/22 03:51 VBG pH 7.348 (7.320-7.420) 06/07/22 01:47 Sodium 163 mmol/L (137-145) H* 06/08/22 03:51 Potassium 3.2 mmol/L (3.6-5.0) L 06/08/22 03:51 Chloride 124.2 mmol/L (98-107) H 06/08/22 03:51 Carbon Dioxide 29 mmol/L (22-30) 06/08/22 03:51 Anion Gap 13 mmol/L 06/08/22 03:51 BUN 62 mg/dL (7-17) H 06/08/22 03:51 Creatinine 1.1 mg/dL (0.6-1.2) 06/08/22 03:51 Estimated GFR 51 ml/min 06/08/22 03:51 BUN/Creatinine Ratio 56 % 06/08/22 03:51 Glucose 232 mg/dL (65-100) H 06/08/22 03:51 POC Glucose 177 mg/dL (70-105) H 06/08/22 06:03 Calcium 9.1 mg/dL (8.4-10.2) 06/08/22 03:51 Phosphorus 2.60 mg/dL (2.5-4.5) D 06/07/22 Unknown Magnesium 2.80 mg/dL (1.7-2.3) H 06/07/22 Unknown Total Bilirubin 1.00 mg/dL (0.1-1.2) 06/07/22 01:47 AST 29 units/L (5-40) 06/07/22 01:47 ALT 57 units/L (7-56) H 06/07/22 01:47 Alkaline Phosphatase 86 units/L (35-129) 06/07/22 01:47 Total Protein 7.5 g/dL (6.3-8.2) 06/07/22 01:47 Albumin 4.5 g/dL (3.9-5) 06/07/22 01:47 Albumin/Globulin Ratio 1.5 % 06/07/22 01:47 Urine Color [place] (Yellow) 06/07/22 Unknown Urine Turbidity Clear (Clear) 06/07/22 Unknown Urine pH 5.0 (5.0-7.0) 06/07/22 Unknown Ur Specific [place] 1.015 (1.003-1.030) 06/07/22 Unknown Urine Protein 30 mg/dl mg/dL (Negative) 06/07/22 Unknown Urine Glucose (UA) 2+ mg/dL (Negative) 06/07/22 Unknown Urine Ketones Negative mg/dL (Negative) 06/07/22 Unknown Urine Blood Negative (Negative) 06/07/22 Unknown Urine Nitrite Negative (Negative) 06/07/22 Unknown Urine Bilirubin 4+ (Negative) 06/07/22 Unknown Urine Ictotest Negative (Negative) 06/07/22 Unknown Urine Urobilinogen 0.0 mg/dL (<2.0) 06/07/22 Unknown Ur Leukocyte Esterase 1+ (Negative) 06/07/22 Unknown Urine WBC (Auto) 5.0 /HPF (0.0-6.0) 06/07/22 Unknown Urine RBC (Auto) < 1.0 /HPF (0.0-6.0) 06/07/22 Unknown Hyaline Casts 66 /LPF 06/07/22 Unknown Urine Mucus Few /HPF 06/07/22 Unknown Active Medications - Current Medications Current Medications: Generic Name Dose Route Start Last Admin Trade Name Freq PRN Reason Stop Dose Admin Acetaminophen 650 mg 06/07/22 04:36 Acetaminophen 325 Mg Tab PO Q4H PRN Pain MILD(1-3)/Fever >100.5/WHALEY Albuterol 2.5 mg 06/07/22 04:36 Albuterol 2.5 Mg/3 Ml Nebu IH Q3HRT PRN Shortness Of Breath Albuterol/Ipratropium 1 ampul 06/07/22 08:00 06/08/22 01:49 Ipratropium/Albuterol Sulfate 3 Ml Ampul.Neb IH 1 ampul Q6HRT DAGMAR Administration Bupropion HCl 150 mg 06/07/22 10:00 06/07/22 09:55 Bupropion Xl 150 Mg Tab PO Not Given QDAY DAGMAR Dextrose 0 ml 06/07/22 04:42 Dextrose 50% In Water (25gm) 50 Ml Syringe IV Q30MIN PRN Hypoglycemia Protocol Diphenhydramine HCl 25 mg 06/07/22 22:00 06/07/22 22:08 Diphenhydramine 25 Mg Cap PO Not Given HS DAGMAR Divalproex Sodium 1,000 mg 06/07/22 10:00 06/07/22 22:[address] 500 Mg Tab PO Not Given BID DAGMAR Famotidine 20 mg 06/07/22 10:00 06/07/22 10:03 Famotidine 20 Mg/2 Ml Inj IV 20 mg DAILY DAGMAR Administration Fluoxetine HCl 20 mg 06/07/22 10:00 06/07/22 09:55 Fluoxetine 20 Mg Cap PO Not Given QDAY DAGMAR Insulin Human Regular 100 100 mls @ 7 mls/hr 06/07/22 04:00 06/08/22 06:04 units/ Sodium Chloride IV 5 units/hr TITR DAGMAR 5 mls/hr Titration Protocol 7 UNITS/HR Potassium Chloride 40 meq/ 1,020 mls @ 125 mls/hr 06/07/22 13:30 06/07/22 14:02 Dextrose IV 125 mls/hr DIRECT DAGMAR Administration Melatonin 10 mg 06/07/22 22:00 06/07/22 22:08 Melatonin 5 Mg Tab PO Not Given QHS [facility] Morphine Sulfate 2 mg 06/07/22 04:36 Morphine 2 Mg/1 Ml Inj IV Q4H PRN Pain, Moderate (4-6) Morphine Sulfate 4 mg 06/07/22 04:36 Morphine 4 Mg/1 Ml Inj IV Q4H PRN Pain , Severe (7-10) Olanzapine 2.5 mg 06/07/22 10:00 06/07/22 09:55 Olanzapine 2.5 Mg Tab PO Not Given QDAY [facility] Ondansetron HCl 4 mg 06/07/22 04:36 06/08/22 05:40 Ondansetron 4 Mg/2 Ml Inj IV 4 mg Q8H PRN Administration Nausea And Vomiting Propranolol HCl 10 mg 06/07/22 10:00 06/07/22 22:08 Propranolol 10 Mg Tab PO Not Given BID DAGMAR Risperidone 2 mg 06/07/22 10:00 06/07/22 22:09 Risperidone 1 Mg Tab PO Not Given BID [facility] Sodium Chloride 10 ml 06/07/22 10:00 Sodium Chloride 0.9% 10 Ml Flush Syringe IV BID DAGMAR Sodium Chloride 10 ml 06/07/22 04:36 Sodium Chloride 0.9% 10 Ml Flush Syringe IV PRN PRN LINE FLUSH Trazodone HCl 150 mg 06/07/22 22:00 06/07/22 22:08 Trazodone 50 Mg Tab PO Not Given QHS [facility] Nutrition/Malnutrition Assess - Dietary Evaluation Nutrition/Malnutrition Findings: Nutrition Notes Start: 06/07/22 09:29 Freq: Status: Active Protocol: Document 06/07/22 09:29 CLIF (Rec: 06/07/22 09:32 CLIF [email or web address]) Nutrition Notes Need for Assessment generated from: MD Order,Education Initial or Follow up Brief Note Current Diagnosis Diabetes,Hypertension Other Pertinent Diagnosis DKA, Bipolar D/O, Schizophrenia Current Diet NPO Weight Status Appropriate Subjective/Other Information RD consulted for diet education. Pt in ED at this time. Burn Absent Trauma Absent Nutrition Intervention Follow-Up By: 06/10/22 Additional Comments F/U: diet advancement, diet education needs/ appropriateness
[2022-06-08 12:37] LABS: Calcium 9.2 mg/dL (8.4-10.2)
[2022-06-08] MEDS: FLUoxetine 20 MG CAP PO SCH (13:40)
[2022-06-08] MEDS: FAMOTIDINE 20 MG/2 ML INJ IV SCH (13:40)
[2022-06-08] MEDS: PROPRANOLOL 10 MG TAB PO SCH ×2 (13:40→22:09)
[2022-06-08] MEDS: risperiDONE 1 MG TAB PO SCH ×2 (13:40→22:09)
[2022-06-08] MEDS: buPROPion XL 150 MG TAB PO SCH (13:40)
[2022-06-08] MEDS: DIVALPROEX DR 500 MG TAB PO SCH ×2 (13:41→22:09)
[2022-06-08 17:20] LABS: Calcium 9.3 mg/dL (8.4-10.2)
[2022-06-08] MEDS: diphenhydrAMINE 25 MG CAP PO SCH (22:09)
[2022-06-08] MEDS: MELATONIN 5 MG TAB PO SCH (22:09)
[2022-06-08] MEDS: traZODone 50 MG TAB PO SCH (22:09)
[2022-06-09 00:36] LABS: Calcium 9.2 mg/dL (8.4-10.2)
[2022-06-09] MEDS: INSULIN REGULAR, HUMAN 100 UNITS in SODIUM CHLORIDE 0.9% 99 ML IV SCH (01:32)
[2022-06-09] MEDS: POTASSIUM CHLORIDE 40 MEQ in DEXTROSE 5% IN WATER 1,000 ML IV SCH (06:25)
[2022-06-09] MEDS ORDERED: LACTATED RINGERS 1,000 ML IV ONE (08:45)
[2022-06-09] MEDS: IPRATROPIUM/ALBUTEROL SULFATE 3 ML AMPUL.NEB IH SCH ×2 (08:52→17:53)
[2022-06-09] MEDS: DIVALPROEX DR 500 MG TAB PO SCH ×3 (10:00→21:27)
[2022-06-09] MEDS: risperiDONE 1 MG TAB PO SCH ×3 (10:00→21:28)
[2022-06-09] MEDS: buPROPion XL 150 MG TAB PO SCH ×2 (10:00→10:18)
[2022-06-09] MEDS: FLUoxetine 20 MG CAP PO SCH ×2 (10:00→10:17)
[2022-06-09] MEDS: PROPRANOLOL 10 MG TAB PO SCH ×3 (10:00→21:27)
[2022-06-09] MEDS: FAMOTIDINE 20 MG/2 ML INJ IV SCH (10:16)
[2022-06-09 11:20] LABS: Hematocrit 46.5 % (30.3-42.9); Hemoglobin 14.9 gm/dl (10.1-14.3); Mean Corpuscular HGB Conc 32 % (30-34); Mean Corpuscular Volume 92 fl (79-97); Platelet Count 61 K/mm3 (140-440); Red Blood Count 5.06 M/mm3 (3.65-5.03); Red Cell Distribution Width 14.2 % (13.2-15.2)
[2022-06-09 11:32] LABS: BUN/Creatinine Ratio 32; Blood Urea Nitrogen 29 mg/dL (7-17); Calcium 8.8 mg/dL (8.4-10.2); Hemolysis Index 14
[2022-06-09] MEDS: DEXTROSE 5% IN WATER 1,000 ML IV SCH ×2 (12:55→21:59)
--- NOTE | 2022-06-09 12:56 | Progress Note ---
<PURVI DELAROSA - Last Filed: 06/09/22 18:37> Assessment and Plan Assessment and plan: 57-year-old female with history of diabetes and bipolar disorder and schizophrenia was brought in from [facility] admitted for DKA Hospital Course: 06/08: Patient remains confused and somnolent but protecting airway. GAP re- opened. Will need to continue insulin gtt. Sodium slowly downtrending, continue D5W + 40 MEQ K infusion. Strict monitoring of sodium so as to not overcorrect. BMP ordered q4hr. Once AG closed, can downgrade to medical floor. 06/09: Patient remain encephalopathic, only arousable to tactile stimuli. Stable on RA, able to protect her airway. UDS pending, mental health was also consulted. Patient also with hypernatremia, continue continue IVF and encourage PO intake. This am labs pending, if anion gap closed will transition to subQ insulin. Worsening thrombocytopenia this am, unclear etiology, no heparin/lovenox given this admit. Will consult hematology for further eval. Assessment and Plan #Hyperosmolar nonketotic coma #Uncontrolled Type II Diabetes Mellitus - [id number] - Remains on DKA protocol - BG improved, this am labs pending - if anion gap closed will transition to subQ insulin - Continue insulin gtt and IVF resuscitation per protocol - Monitor and replace electrolytes as needed - Monitor anion gap, serial Labs ordered #Acute Metabolic Encephalopathy #H/o Bipolar Disorder and Schizophrenia - etiology likely HHS and severe hypernatremia - UDS pending - UA only demonstrates +2 glucose, consistent with diagnosis - Continue current IVF resuscitation and encourage PO intake - Continue to trend Na - Home meds resumed - Avoid benzodiazepine to reduce the possibility of delirium - PRN Analgesia for pain control - Maintenance of sleep-wake cycle - Mental health consulted #Acute kidney injury due to vasomotor nephropathy-improved #Hypernatremia #Hypokalemia- resolved #Metabolic acidosis - Most likely due to DKA - Na: 167 on admission - renal function improved - Remains on insulin gtt and IVF resuscitation per DKA protocol - Strict intake and output - Avoid nephrotoxic medications; Renally dose medications - Garza in place - Monitor and replace electrolytes as needed #SIRS POA - Presented with tachypnea, leukocytosis, and metabolic acidosis - Most likely due to DKA - On DKA protocol - Remains afebrile, symptoms improved, and VSS - Will continue to monitor #Thrombocytopenia #Polycythemia #Hemoconcentration - Presented with high hgb/hct and normal plt - Dropped in plt this am, unclear etiology - No heparin/Lovenox administered since admit - H&H stable, no s/s of any active bleeding - Hematology Consulted - Hold off AC at this time - Transfuse for hgb less than 7 #Essential hypertension - BP stable - Continue home meds - Continue blood pressure monitor per protocol - Maintain SBP above 160 #GI/DVT Prophylaxis - PPI- Pepcid - SCDs to bilateral lower extremities while in bed The high probability of a clinically significant, sudden or life threatening de terioration of the [multiple] system(s) required my full and direct attention, intervention and personal management. The aggregate critical care time was [60] minutes. This time is in addition to time spent performing reported procedures but includes the following: [x] Data Review and interpretation [x] Patient assessment and monitoring of vital signs [x] Documentation [x] Medication orders and management Disposition Plan: ICU Total Time Spent with Patient (Minutes): 60 History Interval history: Patient seen and examined at the bedside. Lethargic, only arousable to tactile stimuli. Stable on RA, VSS. Rremains on DKA protocol. LITTLE overnight Hospitalist Physical - Constitutional Vitals: Temp Pulse Resp BP Pulse Ox 98.2 F 107 H 18 127/64 100 06/09/22 12:03 06/09/22 12:50 06/09/22 12:50 06/09/22 12:50 06/09/22 12:50 General appearance: Present: no acute distress, well-nourished, obese - EENT Eyes: Present: PERRL - Neck Neck: Present: normal ROM - Respiratory Respiratory effort: normal Respiratory: bilateral: CTA - Cardiovascular Rhythm: regular Heart Sounds: Present: S1 & S2 - Extremities Extremities: no ischemia, pulses intact, pulses symmetrical Extremity abnormal: edema - Peripheral Assessment Generalized Edema Type: Non-pitting Edema Degree: 1+ Capillary Refill: < 3 seconds Skin Temperature: Warm Peripheral Pulses: within normal limits - Abdominal General gastrointestinal: soft, non-distended, normal bowel sounds - Integumentary Integumentary: Present: warm, dry - Psychiatric Psychiatric: other (Lethargic, only arousable to tactile stimuli) - Neurologic Neurologic: moves all extremities, other (Lethargic, only arousable to tactile stimuli) - Allied Health Allied health notes reviewed: nursing, case management Results - Labs CBC & Chem 7: 06/09/22 Unknown 06/09/22 Unknown Labs: Laboratory Last Values WBC 7.8 K/mm3 (4.5-11.0) 06/09/22 Unknown RBC 5.06 M/mm3 (3.65-5.03) H 06/09/22 Unknown Hgb 14.9 gm/dl (10.1-14.3) H 06/09/22 Unknown Hct 46.5 % (30.3-42.9) H 06/09/22 Unknown MCV 92 fl (79-97) 06/09/22 Unknown MCH 29 pg (28-32) 06/09/22 Unknown MCHC 32 % (30-34) 06/09/22 Unknown RDW 14.2 % (13.2-15.2) 06/09/22 Unknown Plt Count 61 K/mm3 (140-440) L 06/09/22 Unknown Lymph % (Auto) 11.1 % (13.4-35.0) L 06/08/22 03:51 [place] % (Auto) 5.7 % (0.0-7.3) 06/08/22 03:51 Eos % (Auto) 0.7 % (0.0-4.3) 06/08/22 03:51 Baso % (Auto) 0.2 % (0.0-1.8) 06/08/22 03:51 Lymph # (Auto) 1.2 K/mm3 (1.2-5.4) 06/08/22 03:51 [place] # (Auto) 0.6 K/mm3 (0.0-0.8) 06/08/22 03:51 Eos # (Auto) 0.1 K/mm3 (0.0-0.4) 06/08/22 03:51 Baso # (Auto) 0.0 K/mm3 (0.0-0.1) 06/08/22 03:51 Seg Neutrophils % 82.3 % (40.0-70.0) H 06/08/22 03:51 Seg Neutrophils # 8.7 K/mm3 (1.8-7.7) H 06/08/22 03:51 VBG pH 7.348 (7.320-7.420) 06/07/22 01:47 Sodium 155 mmol/L (137-145) H 06/09/22 Unknown Potassium 5.1 mmol/L (3.6-5.0) H D 06/09/22 Unknown Chloride 122.3 mmol/L (98-107) H 06/09/22 Unknown Carbon Dioxide 26 mmol/L (22-30) 06/09/22 Unknown Anion Gap 12 mmol/L 06/09/22 Unknown BUN 29 mg/dL (7-17) H 06/09/22 Unknown Creatinine 0.9 mg/dL (0.6-1.2) 06/09/22 Unknown Estimated GFR > 60 ml/min 06/09/22 Unknown BUN/Creatinine Ratio 32 % 06/09/22 Unknown Glucose 166 mg/dL (65-100) H 06/09/22 Unknown POC Glucose 140 mg/dL (70-105) H 06/09/22 11:42 Calcium 8.8 mg/dL (8.4-10.2) 06/09/22 Unknown Phosphorus 2.00 mg/dL (2.5-4.5) L 06/09/22 Unknown Magnesium 2.20 mg/dL (1.7-2.3) 06/09/22 Unknown Total Bilirubin 1.00 mg/dL (0.1-1.2) 06/07/22 01:47 AST 29 units/L (5-40) 06/07/22 01:47 ALT 57 units/L (7-56) H 06/07/22 01:47 Alkaline Phosphatase 86 units/L (35-129) 06/07/22 01:47 Total Protein 7.5 g/dL (6.3-8.2) 06/07/22 01:47 Albumin 4.5 g/dL (3.9-5) 06/07/22 01:47 Albumin/Globulin Ratio 1.5 % 06/07/22 01:47 Urine Color [place] (Yellow) 06/07/22 Unknown Urine Turbidity Clear (Clear) 06/07/22 Unknown Urine pH 5.0 (5.0-7.0) 06/07/22 Unknown Ur Specific [place] 1.015 (1.003-1.030) 06/07/22 Unknown Urine Protein 30 mg/dl mg/dL (Negative) 06/07/22 Unknown Urine Glucose (UA) 2+ mg/dL (Negative) 06/07/22 Unknown Urine Ketones Negative mg/dL (Negative) 06/07/22 Unknown Urine Blood Negative (Negative) 06/07/22 Unknown Urine Nitrite Negative (Negative) 06/07/22 Unknown Urine Bilirubin 4+ (Negative) 06/07/22 Unknown Urine Ictotest Negative (Negative) 06/07/22 Unknown Urine Urobilinogen 0.0 mg/dL (<2.0) 06/07/22 Unknown Ur Leukocyte Esterase 1+ (Negative) 06/07/22 Unknown Urine WBC (Auto) 5.0 /HPF (0.0-6.0) 06/07/22 Unknown Urine RBC (Auto) < 1.0 /HPF (0.0-6.0) 06/07/22 Unknown Hyaline Casts 66 /LPF 06/07/22 Unknown Urine Mucus Few /HPF 06/07/22 Unknown Garza/IV: Voiding Method Incontinent Active Medications - Current Medications Current Medications: Generic Name Dose Route Start Last Admin Trade Name Freq PRN Reason Stop Dose Admin Acetaminophen 650 mg 06/07/22 04:36 Acetaminophen 325 Mg Tab PO Q4H PRN Pain MILD(1-3)/Fever >100.5/WHALEY Albuterol 2.5 mg 06/07/22 04:36 Albuterol 2.5 Mg/3 Ml Nebu IH Q3HRT PRN Shortness Of Breath Albuterol/Ipratropium 1 ampul 06/07/22 08:00 06/09/22 08:52 Ipratropium/Albuterol Sulfate 3 Ml Ampul.Neb IH 1 ampul Q6HRT DAGMAR Administration Bupropion HCl 150 mg 06/07/22 10:00 06/09/22 10:18 Bupropion Xl 150 Mg Tab PO 150 mg QDAY DAGMAR Administration Dextrose 0 ml 06/07/22 04:42 Dextrose 50% In Water (25gm) 50 Ml Syringe IV Q30MIN PRN Hypoglycemia Protocol Divalproex Sodium 1,000 mg 06/07/22 10:00 06/09/22 10:[address] 500 Mg Tab PO 1,000 mg BID DAGMAR Administration Famotidine 20 mg 06/07/22 10:00 06/09/22 10:16 Famotidine 20 Mg/2 Ml Inj IV 20 mg DAILY DAGMAR Administration Fluoxetine HCl 20 mg 06/07/22 10:00 06/09/22 10:17 Fluoxetine 20 Mg Cap PO 20 mg QDAY DAGMAR Administration Insulin Human Regular 100 100 mls @ 7 mls/hr 06/07/22 04:00 06/09/22 12:29 units/ Sodium Chloride IV 3 units/hr TITR DAGMAR 3 mls/hr Titration Protocol 7 UNITS/HR Dextrose 1,000 mls @ 100 mls/hr 06/09/22 13:00 06/09/22 12:55 D5w IV 100 mls/hr DIRECT DAGMAR Administration Melatonin 10 mg 06/07/22 22:00 06/08/22 22:09 Melatonin 5 Mg Tab PO Not Given QHS DAGMAR Olanzapine 2.5 mg 06/07/22 10:00 06/09/22 10:18 Olanzapine 2.5 Mg Tab PO 2.5 mg QDAY DAGMAR Administration Ondansetron HCl 4 mg 06/07/22 04:36 06/08/22 05:40 Ondansetron 4 Mg/2 Ml Inj IV 4 mg Q8H PRN Administration Nausea And Vomiting Propranolol HCl 10 mg 06/07/22 10:00 06/09/22 10:16 Propranolol 10 Mg Tab PO 10 mg BID DAGMAR Administration Risperidone 2 mg 06/07/22 10:00 06/09/22 10:17 Risperidone 1 Mg Tab PO 2 mg BID DAGMAR Administration Sodium Chloride 10 ml 06/07/22 10:00 06/09/22 10:17 Sodium Chloride 0.9% 10 Ml Flush Syringe IV 10 ml BID DAGMAR Administration Sodium Chloride 10 ml 06/07/22 04:36 Sodium Chloride 0.9% 10 Ml Flush Syringe IV PRN PRN LINE FLUSH Trazodone HCl 150 mg 06/07/22 22:00 06/08/22 22:09 Trazodone 50 Mg Tab PO Not Given QHS DAGMAR Nutrition/Malnutrition Assess - Dietary Evaluation Nutrition/Malnutrition Findings: Nutrition Notes Start: 06/07/22 09:29 Freq: Status: Active Protocol: Document 06/07/22 09:29 CLIF (Rec: 06/07/22 09:32 CLIF [id number]) Nutrition Notes Need for Assessment generated from: MD Order,Education Initial or Follow up Brief Note Current Diagnosis Diabetes,Hypertension Other Pertinent Diagnosis DKA, Bipolar D/O, Schizophrenia Current Diet NPO Weight Status Appropriate Subjective/Other Information RD consulted for diet education. Pt in ED at this time. Burn Absent Trauma Absent Nutrition Intervention Follow-Up By: 06/10/22 Additional Comments F/U: diet advancement, diet education needs/ appropriateness <NANDO JARVIS - Last Filed: 06/10/22 07:42> Assessment and Plan Assessment and plan: I saw and evaluated the patient. I agree with the findings and the plan of care as documented in the Nurse Practitioner's~note, with the following corrections and additions. Hospitalist Physical - Constitutional Vitals: Temp Pulse Resp BP Pulse Ox 97.3 F L 68 15 107/69 100 06/10/22 00:00 06/10/22 07:00 06/10/22 07:00 06/10/22 07:00 06/10/22 07:00 Results - Labs CBC & Chem 7: 06/10/22 04:30 06/10/22 04:30 Labs: Laboratory Last Values WBC 6.0 K/mm3 (4.5-11.0) 06/10/22 04:30 RBC 4.35 M/mm3 (3.65-5.03) 06/10/22 04:30 Hgb 13.0 gm/dl (10.1-14.3) 06/10/22 04:30 Hct 39.9 % (30.3-42.9) D 06/10/22 04:30 MCV 92 fl (79-97) 06/10/22 04:30 MCH 30 pg (28-32) 06/10/22 04:30 MCHC 33 % (30-34) 06/10/22 04:30 RDW 14.1 % (13.2-15.2) 06/10/22 04:30 Plt Count 50 K/mm3 (140-440) L 06/10/22 04:30 Lymph % (Auto) 11.1 % (13.4-35.0) L 06/08/22 03:51 [place] % (Auto) 5.7 % (0.0-7.3) 06/08/22 03:51 Eos % (Auto) 0.7 % (0.0-4.3) 06/08/22 03:51 Baso % (Auto) 0.2 % (0.0-1.8) 06/08/22 03:51 Lymph # (Auto) 1.2 K/mm3 (1.2-5.4) 06/08/22 03:51 [place] # (Auto) 0.6 K/mm3 (0.0-0.8) 06/08/22 03:51 Eos # (Auto) 0.1 K/mm3 (0.0-0.4) 06/08/22 03:51 Baso # (Auto) 0.0 K/mm3 (0.0-0.1) 06/08/22 03:51 Seg Neutrophils % 82.3 % (40.0-70.0) H 06/08/22 03:51 Seg Neutrophils # 8.7 K/mm3 (1.8-7.7) H 06/08/22 03:51 Fibrinogen 423 mg/dl (211-480) 06/10/22 04:30 VBG pH 7.348 (7.320-7.420) 06/07/22 01:47 Sodium 142 mmol/L (137-145) D 06/10/22 04:30 Potassium 4.0 mmol/L (3.6-5.0) D 06/10/22 04:30 Chloride 111.3 mmol/L (98-107) H 06/10/22 04:30 Carbon Dioxide 25 mmol/L (22-30) 06/10/22 04:30 Anion Gap 10 mmol/L 06/10/22 04:30 BUN 16 mg/dL (7-17) 06/10/22 04:30 Creatinine 0.7 mg/dL (0.6-1.2) 06/10/22 04:30 Estimated GFR > 60 ml/min 06/10/22 04:30 BUN/Creatinine Ratio 23 % 06/10/22 04:30 Glucose 232 mg/dL (65-100) H 06/10/22 04:30 POC Glucose 240 mg/dL (70-105) H 06/09/22 21:33 Calcium 8.3 mg/dL (8.4-10.2) L 06/10/22 04:30 Phosphorus 2.30 mg/dL (2.5-4.5) L 06/10/22 04:30 Magnesium 2.00 mg/dL (1.7-2.3) 06/10/22 04:30 Iron 89 ug/dL (37-170) 06/10/22 04:30 TIBC 122 mcg/dL (250-450) L 06/10/22 04:30 Ferritin 230.8 ng/mL (10.0-200.0) H 06/10/22 04:30 Total Bilirubin 1.00 mg/dL (0.1-1.2) 06/07/22 01:47 AST 29 units/L (5-40) 06/07/22 01:47 ALT 57 units/L (7-56) H 06/07/22 01:47 Alkaline Phosphatase 86 units/L (35-129) 06/07/22 01:47 Total Protein 7.5 g/dL (6.3-8.2) 06/07/22 01:47 Albumin 4.5 g/dL (3.9-5) 06/07/22 01:47 Albumin/Globulin Ratio 1.5 % 06/07/22 01:47 Urine Color [place] (Yellow) 06/07/22 Unknown Urine Turbidity Clear (Clear) 06/07/22 Unknown Urine pH 5.0 (5.0-7.0) 06/07/22 Unknown Ur Specific [place] 1.015 (1.003-1.030) 06/07/22 Unknown Urine Protein 30 mg/dl mg/dL (Negative) 06/07/22 Unknown Urine Glucose (UA) 2+ mg/dL (Negative) 06/07/22 Unknown Urine Ketones Negative mg/dL (Negative) 06/07/22 Unknown Urine Blood Negative (Negative) 06/07/22 Unknown Urine Nitrite Negative (Negative) 06/07/22 Unknown Urine Bilirubin 4+ (Negative) 06/07/22 Unknown Urine Ictotest Negative (Negative) 06/07/22 Unknown Urine Urobilinogen 0.0 mg/dL (<2.0) 06/07/22 Unknown Ur Leukocyte Esterase 1+ (Negative) 06/07/22 Unknown Urine WBC (Auto) 5.0 /HPF (0.0-6.0) 06/07/22 Unknown Urine RBC (Auto) < 1.0 /HPF (0.0-6.0) 06/07/22 Unknown Hyaline Casts 66 /LPF 06/07/22 Unknown Urine Mucus Few /HPF 06/07/22 Unknown Garza/IV: Voiding Method Incontinent Active Medications - Current Medications Current Medications: Generic Name Dose Route Start Last Admin Trade Name Freq PRN Reason Stop Dose Admin Acetaminophen 650 mg 06/07/22 04:36 Acetaminophen 325 Mg Tab PO Q4H PRN Pain MILD(1-3)/Fever >100.5/WH[place]Y Albuterol 2.5 mg 06/07/22 04:36 Albuterol 2.5 Mg/3 Ml Nebu IH Q3HRT PRN Shortness Of Breath Bupropion HCl 150 mg 06/07/22 10:00 06/09/22 10:00 Bupropion Xl 150 Mg Tab PO Not Given QDAY DAGMAR Dextrose 0 ml 06/07/22 04:42 Dextrose 50% In Water (25gm) 50 Ml Syringe IV Q30MIN PRN Hypoglycemia Protocol Dextrose 50 ml 06/09/22 18:02 Dextrose 50% In Water (25gm) 50 Ml Syringe IV Q30MIN PRN Hypoglycemia Protocol Divalproex Sodium 1,000 mg 06/07/22 10:00 06/09/22 21:[address] 500 Mg Tab PO Not Given BID DAGMAR Famotidine 20 mg 06/07/22 10:00 06/09/22 10:16 Famotidine 20 Mg/2 Ml Inj IV 20 mg DAILY DAGMAR Administration Fluoxetine HCl 20 mg 06/07/22 10:00 06/09/22 10:00 Fluoxetine 20 Mg Cap PO Not Given QDAY DAGMAR Dextrose 1,000 mls @ 100 mls/hr 06/09/22 13:00 06/09/22 21:59 D5w IV 100 mls/hr DIRECT DAGMAR Administration Insulin Glargine 18 units 06/09/22 18:45 06/09/22 21:36 Insulin Glargine 100 Units/Ml SUB-Q 18 units QHS DAGMAR Administration Insulin Human Regular 0 units 06/09/22 18:03 06/09/22 21:36 Insulin Regular, Human 100 Units/1 Ml SUB-Q 3 units ACHS DAGMAR Administration Protocol Melatonin 10 mg 06/07/22 22:00 06/09/22 21:27 Melatonin 5 Mg Tab PO Not Given QHS DAGMAR Olanzapine 2.5 mg 06/07/22 10:00 06/09/22 10:00 Olanzapine 2.5 Mg Tab PO Not Given QDAY DAGMAR Ondansetron HCl 4 mg 06/07/22 04:36 06/08/22 05:40 Ondansetron 4 Mg/2 Ml Inj IV 4 mg Q8H PRN Administration Nausea And Vomiting Propranolol HCl 10 mg 06/07/22 10:00 06/09/22 21:27 Propranolol 10 Mg Tab PO Not Given BID DAGMAR Risperidone 2 mg 06/07/22 10:00 06/09/22 21:28 Risperidone 1 Mg Tab PO Not Given BID DAGMAR Sodium Chloride 10 ml 06/07/22 10:00 06/09/22 21:30 Sodium Chloride 0.9% 10 Ml Flush Syringe IV 10 ml BID DAGMAR Administration Sodium Chloride 10 ml 06/07/22 04:36 Sodium Chloride 0.9% 10 Ml Flush Syringe IV PRN PRN LINE FLUSH Trazodone HCl 150 mg 06/07/22 22:00 06/09/22 21:27 Trazodone 50 Mg Tab PO Not Given QHS DAGMAR Nutrition/Malnutrition Assess - Dietary Evaluation Nutrition/Malnutrition Findings: Nutrition Notes Start: 06/07/22 09:29 Freq: Status: Active Protocol: Document 06/07/22 09:29 CLIF (Rec: 06/07/22 09:32 [facility] [id number]) Nutrition Notes Need for Assessment generated from: MD Order,Education Initial or Follow up Brief Note Current Diagnosis Diabetes,Hypertension Other Pertinent Diagnosis DKA, Bipolar D/O, Schizophrenia Current Diet NPO Weight Status Appropriate Subjective/Other Information RD consulted for diet education. Pt in ED at this time. Burn Absent Trauma Absent Nutrition Intervention Follow-Up By: 06/10/22 Additional Comments F/U: diet advancement, diet education needs/ appropriateness
--- NOTE | 2022-06-09 15:40 | Hem/Onc Consultation ---
History of Present Illness - Reason for Consult Consult date: 06/09/22 Thrombocytopenia - History of Present Illness Heme Consult Note Seen via televisit CPT 28600 Dx Thrombocytopenia This is a 57yo female who was brought to [facility] ED from [facility] by EMS for high blood sugar in the 500s. Past medical history of diabetes, bipolar disorder,. and schizophrenia Other history is unobtainable due to patients mentation. In the emergency room patient was found to have glucose 590; likely nonketotic h yperosmolar coma. Started on insulin drip. Hematology was consulted for evaluation of worsening thrombocytopenia. Patient examined at bedside, in no acute distress noted. Nonverbal. As per RN, patient has been nonverbal and a poor historian. No bleeding noted or reported. DATA REVIEWED BELOW IMPRESSION: Thrombocytopenia could be related to underlying liver dysfunction and DKA ITP is possible Doubt HIT as no evidence of heparin/lovenox use Erythryocytosis likely secondary PCV due to hypoxia and DKA nonketotic coma Doubt heme malignancy--rule out APL PLAN: Monitor CBC Transfuse 1 dose of plts whenever plts less than 20 Labs to include iron studies, fibrinogen, pf4ab, epo Abd/pel CT to evaluate for hepatosplenomegaly, lymphadenopathy Laboratory Last Values WBC 7.8 K/mm3 (4.5-11.0) 06/09/22 Unknown Hgb 14.9 gm/dl (10.1-14.3) H 06/09/22 Unknown Hct 46.5 % (30.3-42.9) H 06/09/22 Unknown MCV 92 fl (79-97) 06/09/22 Unknown Plt Count 61 K/mm3 (140-440) L 06/09/22 Unknown Lymph % (Auto) 11.1 % (13.4-35.0) L 06/08/22 03:51 Seg Neutrophils % 82.3 % (40.0-70.0) H 06/08/22 03:51 Seg Neutrophils # 8.7 K/mm3 (1.8-7.7) H 06/08/22 03:51 Creatinine 0.9 mg/dL (0.6-1.2) 06/09/22 Unknown AST 29 units/L (5-40) 06/07/22 01:47 ALT 57 units/L (7-56) H 06/07/22 01:47 n Urine Mucus Few /HPF 06/07/22 Unknown Past History Past Medical History: diabetes, hypertension, other (Psychiatric history) Past Surgical History: No surgical history Social history: no significant social history Family history: diabetes Medications and Allergies Allergies Allergy/AdvReac Type Severity Reaction Status Date / Time Penicillins Allergy Unknown Verified 06/07/22 01:29 potassium Allergy Unknown Verified 06/07/22 01:29 Home Medications Medication Instructions Recorded Confirmed Last Taken Type FLUoxetine [PROzac] 20 mg PO QDAY 05/01/22 05/01/22 Unknown History diphenhydrAMINE HCL [Allergy] 25 mg PO HS 05/01/22 05/01/22 Unknown History metFORMIN [Glucophage] 500 mg PO BID 05/01/22 05/01/22 Unknown History propranoloL [Inderal] 10 mg PO BID 05/01/22 05/01/[address] [Depfrench Dr] 1,000 mg PO BID #120 tablet 05/12/22 Unknown Rx FLUoxetine [PROzac] 20 mg PO QDAY #30 capsule 05/12/22 Unknown Rx Melatonin [Melatonin 5MG TAB] 10 mg PO QHS #60 tablet 05/12/22 Unknown Rx OLANzapine [ZyPREXA] 2.5 mg PO QDAY #30 tablet 05/12/22 Unknown Rx buPROPion XL [Wellbutrin XL] 150 mg PO QDAY #30 tablet 05/12/22 Unknown Rx risperiDONE [RisperDAL] 2 mg PO BID #60 05/12/22 Unknown Rx traZODone [Desyrel] 150 mg PO QHS #90 tablet 05/12/22 Unknown Rx Active Meds: Active Medications Acetaminophen (Acetaminophen 325 Mg Tab) 650 mg PO Q4H PRN PRN Reason: Pain MILD(1-3)/Fever >100.5/WHALEY Albuterol (Albuterol 2.5 Mg/3 Ml Nebu) 2.5 mg IH Q3HRT PRN PRN Reason: Shortness Of Breath Albuterol/Ipratropium (Ipratropium/Albuterol Sulfate 3 Ml Ampul.Neb) 1 ampul IH Q6HRT [facility] Last Admin: 06/09/22 08:52 Dose: 1 ampul Bupropion HCl (Bupropion Xl 150 Mg Tab) 150 mg PO QDAY [facility] Last Admin: 06/09/22 10:18 Dose: 150 mg Dextrose (Dextrose 50% In Water (25gm) 50 Ml Syringe) 0 ml IV Q30MIN PRN; Protocol PRN Reason: Hypoglycemia Divalproex Sodium (Divalproex Dr 500 Mg Tab) 1,000 mg PO BID [facility] Last Admin: 06/09/22 10:16 Dose: 1,000 mg Famotidine (Famotidine 20 Mg/2 Ml Inj) 20 mg IV DAILY [facility] Last Admin: 06/09/22 10:16 Dose: 20 mg Fluoxetine HCl (Fluoxetine 20 Mg Cap) 20 mg PO QDAY [facility] Last Admin: 06/09/22 10:17 Dose: 20 mg Insulin Human Regular 100 (units/ Sodium Chloride) 100 mls @ 7 mls/hr IV TITR [facility]; Protocol Last Titration: 06/09/22 12:29 Dose: 3 units/hr, 3 mls/hr Dextrose (D5w) 1,000 mls @ 100 mls/hr IV DIRECT [facility] Last Admin: 06/09/22 12:55 Dose: 100 mls/hr Melatonin (Melatonin 5 Mg Tab) 10 mg PO QHS [facility] Last Admin: 06/08/22 22:09 Dose: Not Given Olanzapine (Olanzapine 2.5 Mg Tab) 2.5 mg PO QDAY [facility] Last Admin: 06/09/22 10:18 Dose: 2.5 mg Ondansetron HCl (Ondansetron 4 Mg/2 Ml Inj) 4 mg IV Q8H PRN PRN Reason: Nausea And Vomiting Last Admin: 06/08/22 05:40 Dose: 4 mg Propranolol HCl (Propranolol 10 Mg Tab) 10 mg PO BID [facility] Last Admin: 06/09/22 10:16 Dose: 10 mg Risperidone (Risperidone 1 Mg Tab) 2 mg PO BID [facility] Last Admin: 06/09/22 10:17 Dose: 2 mg Sodium Chloride (Sodium Chloride 0.9% 10 Ml Flush Syringe) 10 ml IV BID [facility] Last Admin: 06/09/22 10:17 Dose: 10 ml Sodium Chloride (Sodium Chloride 0.9% 10 Ml Flush Syringe) 10 ml IV PRN PRN PRN Reason: LINE FLUSH Trazodone HCl (Trazodone 50 Mg Tab) 150 mg PO QHS [facility] Last Admin: 06/08/22 22:09 Dose: Not Given Exam - Constitutional Vitals: Last Vital Signs Temp 98.2 F 06/09/22 12:03 Pulse 106 H 06/09/22 13:40 Resp 19 06/09/22 13:40 BP 123/69 06/09/22 13:40 Pulse Ox 100 06/09/22 13:40 Results - Labs lab Results: Laboratory Results - last 24 hr 06/08/22 06/09/22 06/09/22 16:32 00:05 03:25 WBC RBC Hgb Hct MCV MCH MCHC RDW Plt Count Sodium 164 H* 160 H Potassium 3.9 4.2 Chloride 125.0 H 124.7 H Carbon Dioxide 23 26 Anion Gap 18 14 BUN 50 H 40 H Creatinine 1.1 1.0 Estimated GFR 51 57 BUN/Creatinine Ratio 45 40 Glucose 261 H 249 H POC Glucose 134 H Calcium 9.3 9.2 Phosphorus Magnesium 06/09/22 06/09/22 06/09/22 04:07 05:08 06:11 WBC RBC Hgb Hct MCV MCH MCHC RDW Plt Count Sodium Potassium Chloride Carbon Dioxide Anion Gap BUN Creatinine Estimated GFR BUN/Creatinine Ratio Glucose POC Glucose 136 H 137 H 148 H Calcium Phosphorus Magnesium 06/09/22 06/09/22 06/09/22 07:14 08:28 10:31 WBC RBC Hgb Hct MCV MCH MCHC RDW Plt Count Sodium Potassium Chloride Carbon Dioxide Anion Gap BUN Creatinine Estimated GFR BUN/Creatinine Ratio Glucose POC Glucose 168 H 161 H 165 H Calcium Phosphorus Magnesium 06/09/22 06/09/22 06/09/22 11:42 Unknown Unknown WBC 7.8 RBC 5.06 H Hgb 14.9 H Hct 46.5 H MCV 92 MCH 29 MCHC 32 RDW 14.2 Plt Count 61 L Sodium 155 H Potassium 5.1 H D Chloride 122.3 H Carbon Dioxide 26 Anion Gap 12 BUN 29 H Creatinine 0.9 Estimated GFR > 60 BUN/Creatinine Ratio 32 Glucose 166 H POC Glucose 140 H Calcium 8.8 Phosphorus 2.00 L Magnesium 2.20
[2022-06-09] MEDS ORDERED: DEXTROSE 50% IN WATER (25GM) 50 ML SYRINGE IV PRN (18:02)
[2022-06-09] MEDS: traZODone 50 MG TAB PO SCH (21:27)
[2022-06-09] MEDS: MELATONIN 5 MG TAB PO SCH (21:27)
[2022-06-09 21:28] LABS: BUN/Creatinine Ratio 26; Blood Urea Nitrogen 21 mg/dL (7-17); Calcium 8.3 mg/dL (8.4-10.2); Hemolysis Index 109
[2022-06-09] MEDS: INSULIN REGULAR, HUMAN 100 UNITS/1 ML SUB-Q SCH (21:36)
[2022-06-09] MEDS: INSULIN GLARGINE 100 UNITS/ML SUB-Q SCH (21:36)
[2022-06-09] MEDS ORDERED: INSULIN REGULAR, HUMAN 100 UNITS/1 ML SUB-Q SCH (22:00)
[2022-06-10 05:25] LABS: Hematocrit 39.9 % (30.3-42.9); Mean Corpuscular HGB Conc 33 % (30-34); Mean Corpuscular Volume 92 fl (79-97); Red Blood Count 4.35 M/mm3 (3.65-5.03); Red Cell Distribution Width 14.1 % (13.2-15.2)
[2022-06-10 05:26] LABS: Platelet Count 50 K/mm3 (140-440)
[2022-06-10 05:44] LABS: BUN/Creatinine Ratio 23; Blood Urea Nitrogen 16 mg/dL (7-17); Calcium 8.3 mg/dL (8.4-10.2); Hemolysis Index 10; Iron 89 ug/dL (37-170); Total Iron Binding Capacity 122 mcg/dL (250-450)
[2022-06-10] MEDS: INSULIN REGULAR, HUMAN 100 UNITS/1 ML SUB-Q SCH ×4 (07:47→22:25)
--- NOTE | 2022-06-10 10:39 | Cat Scan Report ---
CT head/brain wo con INDICATION: Encephalopathy. TECHNIQUE: All CT scans at this location are performed using CT dose reduction for ALARA by means of automated e xposure control. COMPARISON: None available. FINDINGS: There is no evidence of hemorrhage, hydrocephalus, brain edema, or mass effect/mass lesion. There is overall normal brain formation and brain volume for the patient's age. Ventricular and cisternal/sulc al size is normal for age. The included paranasal sinuses and mastoid air cells are clear. The orbits appear unremarkable. IMPRESSION: 1. No acute findings. Signer Name: Russell House MD Signed: 06/10/2022 10:34 AM Workstation Name: [id number]
--- NOTE | 2022-06-10 11:58 | Cat Scan Report ---
CT ABDOMEN AND PELVIS WITHOUT CONTRAST INDICATION / CLINICAL INFORMATION: Evaluate for splenomegaly, lymphadenopathy. TECHNIQUE: Axial CT images were obtained through the abdomen and pelvis without IV contrast. All CT scans at [facility] are performed using CT dose reduction for ALARA by means of automated exposure control. COMPARISON: None available. FINDINGS: LOWER CHEST: No significant abnormality. LIVER: No significant abnormality. GALLBLADDER: Surgically absent. BILE DUCTS: No significant abnormality. PANCREAS: No significant abnormality. SPLEEN: Normal in size. No suspicious splenic lesions by noncontrast imaging. ADRENALS: No significant abnormality. RIGHT KIDNEY/URETER: Tiny nonobstructive stones are seen along the lower pole without other significa nt abnormalities. LEFT KIDNEY/URETER: No significant abnormality. STOMACH/SMALL BOWEL: There is expected positioning of an esophagogastric tube without significant abn ormalities. COLON: No significant abnormality. APPENDIX: No significant abnormality. PERITONEUM: No free fluid. No free air. No fluid collection. LYMPH NODES: No significant adenopathy. VASCULATURE: No significant abnormality. URINARY BLADDER: Drained by a Garza catheter. REPRODUCTIVE ORGANS: No significant abnormality. ADDITIONAL FINDINGS: None. BONES: No acute findings. There is mild spondylosis with mild degenerative changes of the pelvis. IMPRESSION: 1. No splenomegaly or lymphadenopathy. 2. Additional findings as above. Signer Name: Tim Hatch MD Signed: 06/10/2022 11:54 AM Workstation Name: [id number]
--- NOTE | 2022-06-10 12:39 | Progress Note ---
<PURVI DELAROSA - Last Filed: 06/10/22 19:36> Assessment and Plan Assessment and plan: 57-year-old female with history of diabetes and bipolar disorder and schizophrenia [facility] Hospital Course: 06/08: Patient remains confused and somnolent but protecting airway. GAP re- opened. Will need to continue insulin gtt. Sodium slowly downtrending, continue D5W + 40 MEQ K infusion. Strict monitoring of sodium so as to not overcorrect. BMP ordered q4hr. Once AG closed, can downgrade to medical floor. 06/09: Patient remain encephalopathic, only arousable to tactile stimuli. Stable on RA, able to protect her airway. UDS pending, mental health was also consulted. Patient also with hypernatremia, continue continue IVF and encourage PO intake. This am labs pending, if anion gap closed will transition to subQ insulin. Worsening thrombocytopenia this am, unclear etiology, no heparin/lovenox given this admit. Will consult hematology for further eval. 06/10: Patient remains lethargic, follow commands intermittently and refusing PO meds, however, accept juice and water. This is most likely secondary to psych issues and patient has not had any of her medication for over 48hrs. Mental health/spych consult pending. Patient transitioned to subQ insulin overnight, SS I adjusted. Will insert a DHT for meds and enteral nutrition. Worsen thrombocytopenia, hematology recommendations noted. Pending CT abd/pelvis, will also add CT head/brain to r/o any intracranial abnormality. Royal placed overnight for urinary retention. Hypernatremia improved, agnes hold D5w gtt and continue to monitor electrolytes. Assessment and Plan #Uncontrolled Type II Diabetes Mellitus with Hyperglycemia #Hyperosmolar nonketotic coma - [id number] - s/p DKA protocol - Transitioned to subQ insulin overnight - Hyperglycemic this am, SSI adjusted - Patient refusing PO intake, plan for DHT inserting for meds and feeding - Monitor and replace electrolytes as needed - Monitor anion gap, serial Labs ordered - Nutrition consulted #Acute Metabolic Encephalopathy #H/o Bipolar Disorder and Schizophrenia - etiology likely HHS and severe hypernatremia - S/p DKA protocol, UDS pending - UA only demonstrates +2 glucose, consistent with diagnosis - CT head/brain pending - Encourage PO intake, Continue to trend Na - Home meds resumed - Avoid benzodiazepine to reduce the possibility of delirium - PRN Analgesia for pain control - Maintenance of sleep-wake cycle - Mental health consulted #Acute kidney injury due to vasomotor nephropathy-resolved #Hypernatremia--improved #Hypokalemia- resolved #Metabolic acidosis - Most likely due to DKA - Na: 167 on admission - renal function normalized - Remains on insulin gtt and IVF resuscitation per DKA protocol - Strict intake and output - Avoid nephrotoxic medications; Renally dose medications - Royal in place - Monitor and replace electrolytes as needed #SIRS with Organ Dysfunction (POA)- Resolved - Presented with tachypnea, leukocytosis, metabolic acidosis, and Scr of 2.1 - Most likely due to DKA - s/p DKA protocol. Scr. improved post IVF resuscitation - Remains afebrile, symptoms improved, and VSS - Will continue to monitor #Thrombocytopenia #Polycythemia #Hemoconcentration - Presented with high hgb/hct and normal plt - Dropped in plt this am, unclear etiology - No heparin/Lovenox administered since admit - H&H stable, no s/s of any active bleeding - Hematology Consulted, appreciated - CT abd/pelvsi pending - Hold off AC at this time - Transfuse for hgb less than 7 #Urinary Retention - Bladder scan over 1L retention, royal placed - Britany royal for now, reassess per protocol #Essential hypertension - BP stable - Continue home meds - Continue blood pressure monitor per protocol - Maintain SBP above 160 #GI/DVT Prophylaxis - PPI- Pepcid - SCDs to bilateral lower extremities while in bed The high probability of a clinically significant, sudden or life threatening deterioration of the [multiple] system(s) required my full and direct attention, intervention and personal management. The aggregate critical care time was [60] minutes. This time is in addition to time spent performing reported procedures but includes the following: [x] Data Review and interpretation [x] Patient assessment and monitoring of vital signs [x] Documentation [x] Medication orders and management Disposition Plan: Transfer to Telemetry Total Time Spent with Patient (Minutes): 60 History Interval history: Patient seen and examined at the bedside. Remains encephalopathic, follow commands intermittently. Stable on RA, VSS. Transitioned to SubQ insulin. Patient refused all PO meds overnight. Royal inserted overnight for urinary retention Hospitalist Physical - Physical exam Narrative exam: General appearance: Present: no acute distress, well-nourished, obese - EENT Eyes: Present: PERRL - Neck Neck: Present: normal ROM - Respiratory Respiratory effort: normal Respiratory: bilateral: CTA - Cardiovascular Rhythm: regular Heart Sounds: Present: S1 & S2 - Extremities Extremities: no ischemia, pulses intact, pulses symmetrical Extremity abnormal: edema - Peripheral Assessment Generalized Edema Type: Non-pitting Edema Degree: 1+ Capillary Refill: < 3 seconds Skin Temperature: Warm Peripheral Pulses: within normal limits - Abdominal General gastrointestinal: soft, non-distended, normal bowel sounds - Integumentary Integumentary: Present: warm, dry - Psychiatric Psychiatric: other (Lethargic, follows commands intermittently) - Neurologic Neurologic: moves all extremities, other (Lethargic, follows commands intermittently) - Allied Health Allied health notes reviewed: nursing, case management - Constitutional Vitals: Temp Pulse Resp BP Pulse Ox 99 F 74 13 97/65 99 06/10/22 08:00 06/10/22 10:10 06/10/22 10:10 06/10/22 11:00 06/10/22 09:26 Results - Labs CBC & Chem 7: 06/10/22 04:30 06/10/22 04:30 Labs: Laboratory Last Values WBC 6.0 K/mm3 (4.5-11.0) 06/10/22 04:30 RBC 4.35 M/mm3 (3.65-5.03) 06/10/22 04:30 Hgb 13.0 gm/dl (10.1-14.3) 06/10/22 04:30 Hct 39.9 % (30.3-42.9) D 06/10/22 04:30 MCV 92 fl (79-97) 06/10/22 04:30 MCH 30 pg (28-32) 06/10/22 04:30 MCHC 33 % (30-34) 06/10/22 04:30 RDW 14.1 % (13.2-15.2) 06/10/22 04:30 Plt Count 50 K/mm3 (140-440) L 06/10/22 04:30 Lymph % (Auto) 11.1 % (13.4-35.0) L 06/08/22 03:51 [place] % (Auto) 5.7 % (0.0-7.3) 06/08/22 03:51 Eos % (Auto) 0.7 % (0.0-4.3) 06/08/22 03:51 Baso % (Auto) 0.2 % (0.0-1.8) 06/08/22 03:51 Lymph # (Auto) 1.2 K/mm3 (1.2-5.4) 06/08/22 03:51 [place] # (Auto) 0.6 K/mm3 (0.0-0.8) 06/08/22 03:51 Eos # (Auto) 0.1 K/mm3 (0.0-0.4) 06/08/22 03:51 Baso # (Auto) 0.0 K/mm3 (0.0-0.1) 06/08/22 03:51 Seg Neutrophils % 82.3 % (40.0-70.0) H 06/08/22 03:51 Seg Neutrophils # 8.7 K/mm3 (1.8-7.7) H 06/08/22 03:51 Fibrinogen 423 mg/dl (211-480) 06/10/22 04:30 VBG pH 7.348 (7.320-7.420) 06/07/22 01:47 Sodium 142 mmol/L (137-145) D 06/10/22 04:30 Potassium 4.0 mmol/L (3.6-5.0) D 06/10/22 04:30 Chloride 111.3 mmol/L (98-107) H 06/10/22 04:30 Carbon Dioxide 25 mmol/L (22-30) 06/10/22 04:30 Anion Gap 10 mmol/L 06/10/22 04:30 BUN 16 mg/dL (7-17) 06/10/22 04:30 Creatinine 0.7 mg/dL (0.6-1.2) 06/10/22 04:30 Estimated GFR > 60 ml/min 06/10/22 04:30 BUN/Creatinine Ratio 23 % 06/10/22 04:30 Glucose 232 mg/dL (65-100) H 06/10/22 04:30 POC Glucose 240 mg/dL (70-105) H 06/09/22 21:33 Calcium 8.3 mg/dL (8.4-10.2) L 06/10/22 04:30 Phosphorus 2.30 mg/dL (2.5-4.5) L 06/10/22 04:30 Magnesium 2.00 mg/dL (1.7-2.3) 06/10/22 04:30 Iron 89 ug/dL (37-170) 06/10/22 04:30 TIBC 122 mcg/dL (250-450) L 06/10/22 04:30 Ferritin 230.8 ng/mL (10.0-200.0) H 06/10/22 04:30 Total Bilirubin 1.00 mg/dL (0.1-1.2) 06/07/22 01:47 AST 29 units/L (5-40) 06/07/22 01:47 ALT 57 units/L (7-56) H 06/07/22 01:47 Alkaline Phosphatase 86 units/L (35-129) 06/07/22 01:47 Total Protein 7.5 g/dL (6.3-8.2) 06/07/22 01:47 Albumin 4.5 g/dL (3.9-5) 06/07/22 01:47 Albumin/Globulin Ratio 1.5 % 06/07/22 01:47 Urine Color [place] (Yellow) 06/07/22 Unknown Urine Turbidity Clear (Clear) 06/07/22 Unknown Urine pH 5.0 (5.0-7.0) 06/07/22 Unknown Ur Specific Fl[place]agan 1.015 (1.003-1.030) 06/07/22 Unknown Urine Protein 30 mg/dl mg/dL (Negative) 06/07/22 Unknown Urine Glucose (UA) 2+ mg/dL (Negative) 06/07/22 Unknown Urine Ketones Negative mg/dL (Negative) 06/07/22 Unknown Urine Blood Negative (Negative) 06/07/22 Unknown Urine Nitrite Negative (Negative) 06/07/22 Unknown Urine Bilirubin 4+ (Negative) 06/07/22 Unknown Urine Ictotest Negative (Negative) 06/07/22 Unknown Urine Urobilinogen 0.0 mg/dL (<2.0) 06/07/22 Unknown Ur Leukocyte Esterase 1+ (Negative) 06/07/22 Unknown Urine WBC (Auto) 5.0 /HPF (0.0-6.0) 06/07/22 Unknown Urine RBC (Auto) < 1.0 /HPF (0.0-6.0) 06/07/22 Unknown Hyaline Casts 66 /LPF 06/07/22 Unknown Urine Mucus Few /HPF 06/07/22 Unknown Royal/IV: Voiding Method Incontinent Active Medications - Current Medications Current Medications: Generic Name Dose Route Start Last Admin Trade Name Freq PRN Reason Stop Dose Admin Acetaminophen 650 mg 06/07/22 04:36 Acetaminophen 325 Mg Tab PO Q4H PRN Pain MILD(1-3)/Fever >100.5/WHALEY Albuterol 2.5 mg 06/07/22 04:36 Albuterol 2.5 Mg/3 Ml Nebu IH Q3HRT PRN Shortness Of Breath Bupropion HCl 150 mg 06/07/22 10:00 06/09/22 10:00 Bupropion Xl 150 Mg Tab PO Not Given QDAY DAGMAR Dextrose 50 ml 06/09/22 18:02 Dextrose 50% In Water (25gm) 50 Ml Syringe IV Q30MIN PRN Hypoglycemia Protocol Divalproex Sodium 1,000 mg 06/07/22 10:00 06/09/22 21:[address] 500 Mg Tab PO Not Given BID DAGMAR Famotidine 20 mg 06/07/22 10:00 06/09/22 10:16 Famotidine 20 Mg/2 Ml Inj IV 20 mg DAILY DAGMAR Administration Fluoxetine HCl 20 mg 06/07/22 10:00 06/09/22 10:00 Fluoxetine 20 Mg Cap PO Not Given QDAY [facility] Insulin Glargine 18 units 06/09/22 18:45 06/09/22 21:36 Insulin Glargine 100 Units/Ml SUB-Q 18 units QHS DAGMAR Administration Insulin Human Regular 0 units 06/09/22 18:03 06/10/22 11:26 Insulin Regular, Human 100 Units/1 Ml SUB-Q Not Given ACHS [facility] Protocol Melatonin 10 mg 06/07/22 22:00 06/09/22 21:27 Melatonin 5 Mg Tab PO Not Given QHS DAGMAR Olanzapine 2.5 mg 06/07/22 10:00 06/09/22 10:00 Olanzapine 2.5 Mg Tab PO Not Given QDAY [facility] Ondansetron HCl 4 mg 06/07/22 04:36 06/08/22 05:40 Ondansetron 4 Mg/2 Ml Inj IV 4 mg Q8H PRN Administration Nausea And Vomiting Propranolol HCl 10 mg 06/07/22 10:00 06/09/22 21:27 Propranolol 10 Mg Tab PO Not Given BID DAGMAR Risperidone 2 mg 06/07/22 10:00 06/09/22 21:28 Risperidone 1 Mg Tab PO Not Given BID DAGMAR Sodium Chloride 10 ml 06/07/22 10:00 06/09/22 21:30 Sodium Chloride 0.9% 10 Ml Flush Syringe IV 10 ml BID DAGMAR Administration Sodium Chloride 10 ml 06/07/22 04:36 Sodium Chloride 0.9% 10 Ml Flush Syringe IV PRN PRN LINE FLUSH Trazodone HCl 150 mg 06/07/22 22:00 06/09/22 21:27 Trazodone 50 Mg Tab PO Not Given QHS [facility] Nutrition/Malnutrition Assess - Dietary Evaluation Nutrition/Malnutrition Findings: Nutrition Notes Start: 06/07/22 09:29 Freq: Status: Active Protocol: Document 06/10/22 10:19 CONNOR (Rec: 06/10/22 10:51 CONNOR [id number]) Nutrition Notes Initial or Follow up Assessment Current Diagnosis Diabetes,Hypertension Other Pertinent Diagnosis Hyperglycemia, Metabolic Encephalopathy & Acidosis, SIRS, Thrombocytopenia, Current Diet Clear Liquids Diet (since B ). Labs/Tests 06/10: Cl 111.3, Glu 232, Ca 8 .3, Phos 2.3, HbA1c 9.1%. Pertinent Medications 06/10: Lantus 18U, Humulin R 3U, others nutritionally unremarkable. Height 5 ft 6 in Weight 73.57 kg [place] Body Weight (kg) 59.09 BMI 26.2 Intake Prior to Admission Good Weight change and time frame Pt denies having loss body weight [employer]. Weight Status Overweight Subjective/Other Information RD consult for routine F/U on dietary advancement. No reports available on Pt's PO intake of meals at the time . will assess on F/U. I will prescribe advance to Consistent Carbohydrates Diet, when pertinent, to support Pt 's T2DM condition. Pt is on Room Air, O2 saturation @ 100%, according to Physical Assessment History notes. Pt presents an unspecified dryness as sign of concern for skin risk at the time, according to Physical Assessment History notes. [facility] in [facility], not a candidate for nutrition education. Percent of energy/protein needs met: Prescribed Clear Liquids Diet provides for energy/protein needs (590 Kcal/16 g) during LOS. When pertinent, advance to prescribed Consistent Carbohydrates Diet provides for energy/protein needs (2, 061 Kcal/91 g) during LOS. Burn Absent Trauma Absent GI Symptoms None Food Allergy No Skin Integrity/Comment Unspecified Dryness. Minimum of two criteria No Fluid Accumulation N/A Reduced [employer]ment Internship Strength N/A (non-severe) Protein-Calorie Malnutrition N\A #1 Nutrition Diagnosis Altered nutrition-related laboratory values Etiology Uncontroled T2DM. As Evidenced by Signs and Symptoms 06/10: Cl 111.3, Glu 232, Ca 8 .3, Phos 2.3, HbA1c 9.1%. Is patient on ventilator? No Is Patient Ambulatory and/or Out of Bed Yes REE-([place] [facility]-ambulatory/OOB) [ 1725.685 NUTR.MSJOOB] Calculation Used for Recommendations [place] [facility] Additional Notes Protein: 0.8-1 g/Kg ABW; 59-74 g/day. Fluids: 1 ml/Kcal, or as per MD. Nutrition Intervention Change Diet Order: Continue Clear Liquids Diet as tolerated, advance to Consistent Carbohydrates Diet when pertinent. Goal #1 Help reach and maintain acceptable chemistry lab values during LOS. Goal #2 Adjust the dietary intervention to better serve Pt's needs and clinical conditions during LOS. Follow-Up By: 06/17/22 Additional Comments Continue monitoring food tolerance, %PO intake of meals , and BM. <NANDO JARVIS - Last Filed: 06/11/22 07:19> Assessment and Plan Assessment and plan: I saw and evaluated the patient. I agree with the findings and the plan of care as documented in the Nurse Practitioner's~note, with the following corrections and additions. Hospitalist Physical - Constitutional Vitals: Temp Pulse Resp BP Pulse Ox 97.7 F 85 18 101/62 94 06/11/22 03:35 06/11/22 03:35 06/11/22 03:35 06/11/22 03:35 06/11/22 03:35 Results - Labs CBC & Chem 7: 06/11/22 03:40 06/11/22 03:40 Labs: Laboratory Last Values WBC 5.6 K/mm3 (4.5-11.0) 06/11/22 03:40 RBC 4.63 M/mm3 (3.65-5.03) 06/11/22 03:40 Hgb 13.7 gm/dl (10.1-14.3) 06/11/22 03:40 Hct 42.9 % (30.3-42.9) 06/11/22 03:40 MCV 93 fl (79-97) 06/11/22 03:40 MCH 30 pg (28-32) 06/11/22 03:40 MCHC 32 % (30-34) 06/11/22 03:40 RDW 14.1 % (13.2-15.2) 06/11/22 03:40 Plt Count 62 K/mm3 (140-440) L 06/11/22 03:40 Lymph % (Auto) 11.1 % (13.4-35.0) L 06/08/22 03:51 [place] % (Auto) 5.7 % (0.0-7.3) 06/08/22 03:51 Eos % (Auto) 0.7 % (0.0-4.3) 06/08/22 03:51 Baso % (Auto) 0.2 % (0.0-1.8) 06/08/22 03:51 Lymph # (Auto) 1.2 K/mm3 (1.2-5.4) 06/08/22 03:51 [place] # (Auto) 0.6 K/mm3 (0.0-0.8) 06/08/22 03:51 Eos # (Auto) 0.1 K/mm3 (0.0-0.4) 06/08/22 03:51 Baso # (Auto) 0.0 K/mm3 (0.0-0.1) 06/08/22 03:51 Seg Neutrophils % 82.3 % (40.0-70.0) H 06/08/22 03:51 Seg Neutrophils # 8.7 K/mm3 (1.8-7.7) H 06/08/22 03:51 Fibrinogen 423 mg/dl (211-480) 06/10/22 04:30 VBG pH 7.348 (7.320-7.420) 06/07/22 01:47 Sodium 145 mmol/L (137-145) 06/11/22 03:40 Potassium 4.2 mmol/L (3.6-5.0) 06/11/22 03:40 Chloride 110.0 mmol/L (98-107) H 06/11/22 03:40 Carbon Dioxide 26 mmol/L (22-30) 06/11/22 03:40 Anion Gap 13 mmol/L 06/11/22 03:40 BUN 15 mg/dL (7-17) 06/11/22 03:40 Creatinine 0.7 mg/dL (0.6-1.2) 06/11/22 03:40 Estimated GFR > 60 ml/min 06/11/22 03:40 BUN/Creatinine Ratio 21 % 06/11/22 03:40 Glucose 215 mg/dL (65-100) H 06/11/22 03:40 POC Glucose 192 mg/dL (70-105) H 06/10/22 20:29 Calcium 8.4 mg/dL (8.4-10.2) 06/11/22 03:40 Phosphorus 2.70 mg/dL (2.5-4.5) 06/11/22 03:40 Magnesium 2.00 mg/dL (1.7-2.3) 06/11/22 03:40 Iron 89 ug/dL (37-170) 06/10/22 04:30 TIBC 122 mcg/dL (250-450) L 06/10/22 04:30 Ferritin 230.8 ng/mL (10.0-200.0) H 06/10/22 04:30 Total Bilirubin 0.70 mg/dL (0.1-1.2) 06/11/22 03:40 AST 68 units/L (5-40) H 06/11/22 03:40 ALT 90 units/L (7-56) H 06/11/22 03:40 Alkaline Phosphatase 77 units/L (35-129) 06/11/22 03:40 Total Protein 4.8 g/dL (6.3-8.2) L D 06/11/22 03:40 Albumin 2.5 g/dL (3.9-5) L 06/11/22 03:40 Albumin/Globulin Ratio 1.1 % 06/11/22 03:40 Urine Color [place] (Yellow) 06/07/22 Unknown Urine Turbidity Clear (Clear) 06/07/22 Unknown Urine pH 5.0 (5.0-7.0) 06/07/22 Unknown Ur Specific [place] 1.015 (1.003-1.030) 06/07/22 Unknown Urine Protein 30 mg/dl mg/dL (Negative) 06/07/22 Unknown Urine Glucose (UA) 2+ mg/dL (Negative) 06/07/22 Unknown Urine Ketones Negative mg/dL (Negative) 06/07/22 Unknown Urine Blood Negative (Negative) 06/07/22 Unknown Urine Nitrite Negative (Negative) 06/07/22 Unknown Urine Bilirubin 4+ (Negative) 06/07/22 Unknown Urine Ictotest Negative (Negative) 06/07/22 Unknown Urine Urobilinogen 0.0 mg/dL (<2.0) 06/07/22 Unknown Ur Leukocyte Esterase 1+ (Negative) 06/07/22 Unknown Urine WBC (Auto) 5.0 /HPF (0.0-6.0) 06/07/22 Unknown Urine RBC (Auto) < 1.0 /HPF (0.0-6.0) 06/07/22 Unknown Hyaline Casts 66 /LPF 06/07/22 Unknown Urine Mucus Few /HPF 06/07/22 Unknown Royal/IV: Voiding Method Indwelling Catheter Active Medications - Current Medications Current Medications: Generic Name Dose Route Start Last Admin Trade Name Freq PRN Reason Stop Dose Admin Acetaminophen 650 mg 06/07/22 04:36 Acetaminophen 325 Mg Tab PO Q4H PRN Pain MILD(1-3)/Fever >100.5/WHALEY Albuterol 2.5 mg 06/07/22 04:36 Albuterol 2.5 Mg/3 Ml Nebu IH Q3HRT PRN Shortness Of Breath Bupropion HCl 150 mg 06/07/22 10:00 06/10/22 18:51 Bupropion Xl 150 Mg Tab PO Not Given QDAY DAGMAR Dextrose 50 ml 06/09/22 18:02 Dextrose 50% In Water (25gm) 50 Ml Syringe IV Q30MIN PRN Hypoglycemia Protocol Divalproex Sodium 1,000 mg 06/07/22 10:00 06/10/22 22:[address] 500 Mg Tab PO Not Given BID DAGMAR Famotidine 20 mg 06/07/22 10:00 06/10/22 18:51 Famotidine 20 Mg/2 Ml Inj IV Not Given DAILY DAGMAR Fluoxetine HCl 20 mg 06/07/22 10:00 06/10/22 18:51 Fluoxetine 20 Mg Cap PO Not Given QDAY [facility] Insulin Glargine 18 units 06/09/22 18:45 06/10/22 22:25 Insulin Glargine 100 Units/Ml SUB-Q 18 units QHS DAGMAR Administration Insulin Human Regular 0 units 06/09/22 18:03 06/10/22 22:25 Insulin Regular, Human 100 Units/1 Ml SUB-Q 3 units ACHS [facility] Administration Protocol Melatonin 10 mg 06/07/22 22:00 06/10/22 22:24 Melatonin 5 Mg Tab PO Not Given QHS DAGMAR Olanzapine 2.5 mg 06/07/22 10:00 06/10/22 18:51 Olanzapine 2.5 Mg Tab PO Not Given QDAY DAGMAR Ondansetron HCl 4 mg 06/07/22 04:36 06/08/22 05:40 Ondansetron 4 Mg/2 Ml Inj IV 4 mg Q8H PRN Administration Nausea And Vomiting Propranolol HCl 10 mg 06/07/22 10:00 06/10/22 22:26 Propranolol 10 Mg Tab PO Not Given BID DAGMAR Risperidone 2 mg 06/07/22 10:00 06/10/22 22:22 Risperidone 1 Mg Tab PO 2 mg BID DAGMAR Administration Sodium Chloride 10 ml 06/07/22 10:00 06/10/22 22:24 Sodium Chloride 0.9% 10 Ml Flush Syringe IV 10 ml BID DAGMAR Administration Sodium Chloride 10 ml 06/07/22 04:36 Sodium Chloride 0.9% 10 Ml Flush Syringe IV PRN PRN LINE FLUSH Trazodone HCl 150 mg 06/07/22 22:00 06/10/22 22:22 Trazodone 50 Mg Tab PO 150 mg QHS DAGMAR Administration Nutrition/Malnutrition Assess - Dietary Evaluation Nutrition/Malnutrition Findings: Nutrition Notes Start: 06/07/22 09:29 Freq: Status: Active Protocol: Document 06/10/22 14:55 CONNOR (Rec: 06/10/22 15:15 CONNOR [id number]) Nutrition Notes Initial or Follow up Brief Note Current Diagnosis Diabetes,Hypertension Other Pertinent Diagnosis Hyperglycemia, Metabolic Encephalopathy & Acidosis, SIRS, Thrombocytopenia, Current Diet TF-Glucerna 1.2 [place] @ 60 ml/hr (from D 06/10). Height 5 ft 6 in Weight 73.57 kg [place] Body Weight (kg) 59.09 BMI 26.2 Weight Status Overweight Subjective/Other Information RD consult for write/manage TF assessment. Secoindary to psychiatric issues, Pt is refusing to take meals nor medications PO, inserted DHT to solve this concern, well tolerated, Pt remains on restrains. I will prescribe TF to provide Pt with energy/protein needs during LOS. Percent of energy/protein needs met: Prescribed TF-Glucerna 1.2 [place] @ 60 ml/hr provides for energy/protein needs (1,726 Kcal/86 g) during LOS, 100% Kcal; 117% AA. #2 Nutrition Diagnosis Inadequate oral intake Etiology Secondary to psychiatric conditions. As Evidenced by Signs and Symptoms Pt refusing to intake meals nor medications via PO. Is patient on ventilator? No Is Patient Ambulatory and/or Out of Bed Yes REE-([facility]-ambulatory/OOB) [ 1725.685 NUTR.MSJOOB] Calculation Used for Recommendations [facility] Additional Notes Protein: 0.8-1 g/Kg ABW; 59-74 g/day. Fluids: 1 ml/Kcal, or as per MD. Nutrition Intervention Change Diet Order: Discontinue. Nutrition Support: Start TF-Glucerna 1.2 [place] @ 60 ml/hr. Flush: 100 ml water Q 4 hr, or as per MD. Kcal 1,726 Protein (gm) 86 Carbohydrates (gm) 165 Fat (gm) 86 Fluid (mL) 1,158 Fiber (gm) 23 % RDI: 100% Kcal; 117% AA. Goal #1 Provide at least 75% of energy /protein needs through Enteral Feeding during LOS. Follow-Up By: 06/12/22 Additional Comments Start monitoring TF tolerance and BM.
--- NOTE | 2022-06-10 15:39 | Consultation ---
History of Present Illness - Reason for Consult Consult date: 06/10/22 Reason for consult: hx of schizophrenia - History of Present Psychiatric Illness The patient was seen today. She is a known patient released from [facility] last month. The patient has a history of schizophrenia and bipolar. An officer is at bedside. The patient was brought from the custodial for elevated blood glucose. The patient has a dobhoff in place. During my evaluation the patient is somno lent. She is handcuffed to the bed by her left ankle. She has on bilateral wrist restraints. She was unable to engage during the evaluation. REVIEW OF SYSTEMS Unable to assess MENTAL STATUS EXAMINATION Unable to assess Assessment: Schizophrenia, Bipolar Disorder Treatment Plan agree with continuation of home meds Sitter: defer to primary Medical: per primary Disposition: Do not recommend acute psychiatric inpatient treatment Will follow for med management. Thanks Case staffed with Dr. Miranda Medications and Allergies Allergies Allergy/AdvReac Type Severity Reaction Status Date / Time Penicillins Allergy Unknown Verified 06/07/22 01:29 potassium Allergy Unknown Verified 06/07/22 01:29 Home Medications Medication Instructions Recorded Confirmed Last Taken Type FLUoxetine [PROzac] 20 mg PO QDAY 05/01/22 06/10/22 Unknown History diphenhydrAMINE HCL [Allergy] 25 mg PO HS 05/01/22 06/10/22 Unknown History metFORMIN [Glucophage] 500 mg PO BID 05/01/22 06/10/22 Unknown History propranoloL [Inderal] 10 mg PO BID 05/01/22 06/10/22 Unknown History Divalproex [[place]] 1,000 mg PO BID #120 tablet 05/12/22 06/10/22 Unknown Rx Melatonin [Melatonin 5MG TAB] 10 mg PO QHS #60 tablet 05/12/22 06/10/22 Unknown Rx OLANzapine [ZyPREXA] 2.5 mg PO QDAY #30 tablet 05/12/22 06/10/22 Unknown Rx buPROPion XL [Wellbutrin XL] 150 mg PO QDAY #30 tablet 05/12/22 06/10/22 Unknown Rx risperiDONE [RisperDAL] 2 mg PO BID #60 05/12/22 06/10/22 Unknown Rx traZODone [Desyrel] 150 mg PO QHS #90 tablet 05/12/22 06/10/22 Unknown Rx Active Meds: Active Medications Acetaminophen (Acetaminophen 325 Mg Tab) 650 mg PO Q4H PRN PRN Reason: Pain MILD(1-3)/Fever >100.5/WHALEY Albuterol (Albuterol 2.5 Mg/3 Ml Nebu) 2.5 mg IH Q3HRT PRN PRN Reason: Shortness Of Breath Bupropion HCl (Bupropion Xl 150 Mg Tab) 150 mg PO QDAY [facility] Last Admin: 06/09/22 10:00 Dose: Not Given Dextrose (Dextrose 50% In Water (25gm) 50 Ml Syringe) 50 ml IV Q30MIN PRN; Protocol PRN Reason: Hypoglycemia Divalproex Sodium (Divalproex Dr 500 Mg Tab) 1,000 mg PO BID [facility] Last Admin: 06/09/22 21:27 Dose: Not Given Famotidine (Famotidine 20 Mg/2 Ml Inj) 20 mg IV DAILY [facility] Last Admin: 06/09/22 10:16 Dose: 20 mg Fluoxetine HCl (Fluoxetine 20 Mg Cap) 20 mg PO QDAY [facility] Last Admin: 06/09/22 10:00 Dose: Not Given Insulin Glargine (Insulin Glargine 100 Units/Ml) 18 units SUB-Q QHS [facility] Last Admin: 06/09/22 21:36 Dose: 18 units Insulin Human Regular (Insulin Regular, Human 100 Units/1 Ml) 0 units SUB-Q [facility]; Protocol Last Admin: 06/10/22 11:26 Dose: Not Given Melatonin (Melatonin 5 Mg Tab) 10 mg PO QHS [facility] Last Admin: 06/09/22 21:27 Dose: Not Given Olanzapine (Olanzapine 2.5 Mg Tab) 2.5 mg PO QDAY [facility] Last Admin: 06/09/22 10:00 Dose: Not Given Ondansetron HCl (Ondansetron 4 Mg/2 Ml Inj) 4 mg IV Q8H PRN PRN Reason: Nausea And Vomiting Last Admin: 06/08/22 05:40 Dose: 4 mg Propranolol HCl (Propranolol 10 Mg Tab) 10 mg PO BID [facility] Last Admin: 06/09/22 21:27 Dose: Not Given Risperidone (Risperidone 1 Mg Tab) 2 mg PO BID [facility] Last Admin: 06/09/22 21:28 Dose: Not Given Sodium Chloride (Sodium Chloride 0.9% 10 Ml Flush Syringe) 10 ml IV BID [facility] Last Admin: 06/09/22 21:30 Dose: 10 ml Sodium Chloride (Sodium Chloride 0.9% 10 Ml Flush Syringe) 10 ml IV PRN PRN PRN Reason: LINE FLUSH Trazodone HCl (Trazodone 50 Mg Tab) 150 mg PO QHS [facility] Last Admin: 06/09/22 21:27 Dose: Not Given Mental Status Exam - Vital signs Last Vital Signs Temp 99 F 06/10/22 08:00 Pulse 74 06/10/22 10:10 Resp 13 06/10/22 10:10 BP 97/65 06/10/22 11:00 Pulse Ox 99 06/10/22 09:26 Results Result Diagrams: 06/10/22 04:30 06/10/22 04:30 Abnormal lab results 06/09/22 06/09/22 06/09/22 Range/Units 15:40 16:44 20:52 Plt Count (140-440) K/mm3 Sodium 150 H (137-145) mmol/L Potassium 5.2 H (3.6-5.0) mmol/L Chloride 118.2 H (98-107) mmol/L BUN 21 H (7-17) mg/dL Glucose 254 H (65-100) mg/dL POC Glucose 147 H 199 H (70-105) mg/dL Calcium 8.3 L (8.4-10.2) mg/dL Phosphorus (2.5-4.5) mg/dL TIBC (250-450) mcg/dL Ferritin (10.0-200.0) ng/mL 06/09/22 06/10/22 06/10/22 Range/Units 21:33 04:30 04:30 Plt Count 50 L (140-440) K/mm3 Sodium (137-145) mmol/L Potassium (3.6-5.0) mmol/L Chloride 111.3 H (98-107) mmol/L BUN (7-17) mg/dL Glucose 232 H (65-100) mg/dL POC Glucose 240 H (70-105) mg/dL Calcium 8.3 L (8.4-10.2) mg/dL Phosphorus 2.30 L (2.5-4.5) mg/dL TIBC 122 L (250-450) mcg/dL Ferritin (10.0-200.0) ng/mL 06/10/22 Range/Units 04:30 Plt Count (140-440) K/mm3 Sodium (137-145) mmol/L Potassium (3.6-5.0) mmol/L Chloride (98-107) mmol/L BUN (7-17) mg/dL Glucose (65-100) mg/dL POC Glucose (70-105) mg/dL Calcium (8.4-10.2) mg/dL Phosphorus (2.5-4.5) mg/dL TIBC (250-450) mcg/dL Ferritin 230.8 H (10.0-200.0) ng/mL All other labs normal.
[2022-06-10] MEDS: buPROPion XL 150 MG TAB PO SCH (18:51)
[2022-06-10] MEDS: DIVALPROEX DR 500 MG TAB PO SCH ×2 (18:51→22:24)
[2022-06-10] MEDS: FLUoxetine 20 MG CAP PO SCH (18:51)
[2022-06-10] MEDS: risperiDONE 1 MG TAB PO SCH ×2 (18:51→22:22)
[2022-06-10] MEDS: PROPRANOLOL 10 MG TAB PO SCH ×2 (18:51→22:26)
[2022-06-10] MEDS: FAMOTIDINE 20 MG/2 ML INJ IV SCH (18:51)
[2022-06-10] MEDS: traZODone 50 MG TAB PO SCH (22:22)
[2022-06-10] MEDS: MELATONIN 5 MG TAB PO SCH (22:24)
[2022-06-10] MEDS: INSULIN GLARGINE 100 UNITS/ML SUB-Q SCH (22:25)
[2022-06-11 04:18] LABS: Hematocrit 42.9 % (30.3-42.9); Hemoglobin 13.7 gm/dl (10.1-14.3); Mean Corpuscular HGB Conc 32 % (30-34); Mean Corpuscular Volume 93 fl (79-97); Red Blood Count 4.63 M/mm3 (3.65-5.03); Red Cell Distribution Width 14.1 % (13.2-15.2)
[2022-06-11 04:20] LABS: Platelet Count 62 K/mm3 (140-440)
[2022-06-11 05:07] LABS: Alanine Aminotransferase 90 units/L (7-56); Albumin 2.5 g/dL (3.9-5); Blood Urea Nitrogen 15 mg/dL (7-17); Calcium 8.4 mg/dL (8.4-10.2); Hemolysis Index 15
[2022-06-11 05:25] LABS: BUN/Creatinine Ratio 21
[2022-06-11] MEDS: INSULIN REGULAR, HUMAN 100 UNITS/1 ML SUB-Q SCH ×2 (07:30→18:51)
--- NOTE | 2022-06-11 08:11 | Progress Note ---
Assessment and Plan Assessment and plan: 57-year-old female with history of diabetes and bipolar disorder and schizophrenia was [facility] Hospital Course: 06/08: Patient remains confused and somnolent but protecting airway. GAP re- opened. Will need to continue insulin gtt. Sodium slowly downtrending, continue D5W + 40 MEQ K infusion. Strict monitoring of sodium so as to not overcorrect. BMP ordered q4hr. Once AG closed, can downgrade to medical floor. 06/09: Patient remain encephalopathic, only arousable to tactile stimuli. Stable on RA, able to protect her airway. UDS pending, mental health was also consulted. Patient also with hypernatremia, continue continue IVF and encourage PO intake. This am labs pending, if anion gap closed will transition to subQ insulin. Worsening thrombocytopenia this am, unclear etiology, no heparin/lovenox given this admit. Will consult hematology for further eval. 06/10: Patient remains lethargic, follow commands intermittently and refusing PO meds, however, accept juice and water. This is most likely secondary to psych issues and patient has not had any of her medication for over 48hrs. Mental health/spych consult pending. Patient transitioned to subQ insulin overnight, SSI adjusted. Will insert a DHT for meds and enteral nutrition. Worsen t hrombocytopenia, hematology recommendations noted. Pending CT abd/pelvis, will also add CT head/brain to r/o any intracranial abnormality. Royal placed overnight for urinary retention. Hypernatremia improved, agnes hold D5w gtt and continue to monitor electrolytes. 06/11: Patient remains somnolent. Psych team reviewed medications and made some adjustment. I did discuss with the primary care physician [facility] the unable to manage the patient requiring NG tube at this time for nutritional status. Considering her condition of diabetes and hyperglycemia we will wanted to be more awake prior to discharge back to the facility. This is likely secondary to her bipolar disorder psych input is appreciated. Platelets appear to be improving imaging studies as documented above did not show any acute pathology. Mildly elevated LFTs we will recheck again in a.m. anticipate discharge in 24 to 48 hours Assessment and Plan #Uncontrolled Type II Diabetes Mellitus with Hyperglycemia #Hyperosmolar nonketotic coma - [id number] - s/p DKA protocol - Transitioned to subQ insulin overnight - Hyperglycemic this am, SSI adjusted - Patient refusing PO intake, plan for DHT inserting for meds and feeding - Monitor and replace electrolytes as needed - Monitor anion gap, serial Labs ordered - Nutrition consulted #Acute Metabolic Encephalopathy #H/o Bipolar Disorder and Schizophrenia - etiology likely HHS and severe hypernatremia - S/p DKA protocol, UDS pending - UA only demonstrates +2 glucose, consistent with diagnosis - CT head/brain pending - Encourage PO intake, Continue to trend Na - Home meds resumed - Avoid benzodiazepine to reduce the possibility of delirium - PRN Analgesia for pain control - Maintenance of sleep-wake cycle - Mental health consulted #Acute kidney injury due to vasomotor nephropathy-resolved #Hypernatremia--improved #Hypokalemia- resolved #Metabolic acidosis - Most likely due to DKA - Na: 167 on admission - renal function normalized - Remains on insulin gtt and IVF resuscitation per DKA protocol - Strict intake and output - Avoid nephrotoxic medications; Renally dose medications - Royal in place - Monitor and replace electrolytes as needed #SIRS with Organ Dysfunction (POA)- Resolved - Presented with tachypnea, leukocytosis, metabolic acidosis, and Scr of 2.1 - Most likely due to DKA - s/p DKA protocol. Scr. improved post IVF resuscitation - Remains afebrile, symptoms improved, and VSS - Will continue to monitor #Thrombocytopenia #Polycythemia #Hemoconcentration - Presented with high hgb/hct and normal plt - Dropped in plt this am, unclear etiology - No heparin/Lovenox administered since admit - H&H stable, no s/s of any active bleeding - Hematology Consulted, appreciated - CT abd/pelvsi pending - Hold off AC at this time - Transfuse for hgb less than 7 #Urinary Retention - Bladder scan over 1L retention, royal placed - Britany kingey for now, reassess per protocol #Essential hypertension - BP stable - Continue home meds - Continue blood pressure monitor per protocol - Maintain SBP above 160 #GI/DVT Prophylaxis - PPI- Pepcid - SCDs to bilateral lower extremities while in bed History Interval history: Patient seen and examined remains very lethargic and somnolent. Still refusing to eat. Pulled off her NG tube this morning. Hospitalist Physical - Physical exam Narrative exam: VITAL SIGNS: Reviewed. GENERAL: The patient appears normally developed, remains very somnolent. Opens eyes to noxious stimuli but does not respond vital signs as documented. HEAD: No signs of head trauma. EYES: Pupils are equal. Extraocular motions intact. EARS: Hearing grossly intact. MOUTH: Oropharynx is normal. NECK: No adenopathy, no JVD. CHEST: Chest with clear breath sounds bilaterally. No wheezes, rales, or rhonchi. CARDIAC: Regular rate and rhythm. S1 and S2, without murmurs, gallops, or rubs. VASCULAR: No Edema. Peripheral pulses normal and equal in all extremities. ABDOMEN: Soft, non tender and non distended. No rebound or guarding, and no masses palpated. Bowel Sounds normal. MUSCULOSKELETAL: Good range of motion of all major joints. Extremities without clubbing, cyanosis or edema. NEUROLOGIC EXAM: Moves all extremities, awake but mainly has her eyes closed and somnolent. Does not follow any commands. Has not spoken since she has been here. PSYCHIATRIC: Mood sedated SKIN: detail exam as documented in skin assessment - Constitutional Vitals: Temp Pulse Resp BP Pulse Ox 97.7 F 85 18 101/62 94 06/11/22 03:35 06/11/22 03:35 06/11/22 03:35 06/11/22 03:35 06/11/22 03:35 General appearance: Present: no acute distress, well-nourished, obese Results - Labs CBC & Chem 7: 06/11/22 03:40 06/11/22 03:40 Labs: Laboratory Last Values WBC 5.6 K/mm3 (4.5-11.0) 06/11/22 03:40 RBC 4.63 M/mm3 (3.65-5.03) 06/11/22 03:40 Hgb 13.7 gm/dl (10.1-14.3) 06/11/22 03:40 Hct 42.9 % (30.3-42.9) 06/11/22 03:40 MCV 93 fl (79-97) 06/11/22 03:40 MCH 30 pg (28-32) 06/11/22 03:40 MCHC 32 % (30-34) 06/11/22 03:40 RDW 14.1 % (13.2-15.2) 06/11/22 03:40 Plt Count 62 K/mm3 (140-440) L 06/11/22 03:40 Lymph % (Auto) 11.1 % (13.4-35.0) L 06/08/22 03:51 [place] % (Auto) 5.7 % (0.0-7.3) 06/08/22 03:51 Eos % (Auto) 0.7 % (0.0-4.3) 06/08/22 03:51 Baso % (Auto) 0.2 % (0.0-1.8) 06/08/22 03:51 Lymph # (Auto) 1.2 K/mm3 (1.2-5.4) 06/08/22 03:51 [place] # (Auto) 0.6 K/mm3 (0.0-0.8) 06/08/22 03:51 Eos # (Auto) 0.1 K/mm3 (0.0-0.4) 06/08/22 03:51 Baso # (Auto) 0.0 K/mm3 (0.0-0.1) 06/08/22 03:51 Seg Neutrophils % 82.3 % (40.0-70.0) H 06/08/22 03:51 Seg Neutrophils # 8.7 K/mm3 (1.8-7.7) H 06/08/22 03:51 Fibrinogen 423 mg/dl (211-480) 06/10/22 04:30 VBG pH 7.348 (7.320-7.420) 06/07/22 01:47 Sodium 145 mmol/L (137-145) 06/11/22 03:40 Potassium 4.2 mmol/L (3.6-5.0) 06/11/22 03:40 Chloride 110.0 mmol/L (98-107) H 06/11/22 03:40 Carbon Dioxide 26 mmol/L (22-30) 06/11/22 03:40 Anion Gap 13 mmol/L 06/11/22 03:40 BUN 15 mg/dL (7-17) 06/11/22 03:40 Creatinine 0.7 mg/dL (0.6-1.2) 06/11/22 03:40 Estimated GFR > 60 ml/min 06/11/22 03:40 BUN/Creatinine Ratio 21 % 06/11/22 03:40 Glucose 215 mg/dL (65-100) H 06/11/22 03:40 POC Glucose 192 mg/dL (70-105) H 06/10/22 20:29 Calcium 8.4 mg/dL (8.4-10.2) 06/11/22 03:40 Phosphorus 2.70 mg/dL (2.5-4.5) 06/11/22 03:40 Magnesium 2.00 mg/dL (1.7-2.3) 06/11/22 03:40 Iron 89 ug/dL (37-170) 06/10/22 04:30 TIBC 122 mcg/dL (250-450) L 06/10/22 04:30 Ferritin 230.8 ng/mL (10.0-200.0) H 06/10/22 04:30 Total Bilirubin 0.70 mg/dL (0.1-1.2) 06/11/22 03:40 AST 68 units/L (5-40) H 06/11/22 03:40 ALT 90 units/L (7-56) H 06/11/22 03:40 Alkaline Phosphatase 77 units/L (35-129) 06/11/22 03:40 Total Protein 4.8 g/dL (6.3-8.2) L D 06/11/22 03:40 Albumin 2.5 g/dL (3.9-5) L 06/11/22 03:40 Albumin/Globulin Ratio 1.1 % 06/11/22 03:40 Urine Color [place] (Yellow) 06/07/22 Unknown Urine Turbidity Clear (Clear) 06/07/22 Unknown Urine pH 5.0 (5.0-7.0) 06/07/22 Unknown Ur Specific [place] 1.015 (1.003-1.030) 06/07/22 Unknown Urine Protein 30 mg/dl mg/dL (Negative) 06/07/22 Unknown Urine Glucose (UA) 2+ mg/dL (Negative) 06/07/22 Unknown Urine Ketones Negative mg/dL (Negative) 06/07/22 Unknown Urine Blood Negative (Negative) 06/07/22 Unknown Urine Nitrite Negative (Negative) 06/07/22 Unknown Urine Bilirubin 4+ (Negative) 06/07/22 Unknown Urine Ictotest Negative (Negative) 06/07/22 Unknown Urine Urobilinogen 0.0 mg/dL (<2.0) 06/07/22 Unknown Ur Leukocyte Esterase 1+ (Negative) 06/07/22 Unknown Urine WBC (Auto) 5.0 /HPF (0.0-6.0) 06/07/22 Unknown Urine RBC (Auto) < 1.0 /HPF (0.0-6.0) 06/07/22 Unknown Hyaline Casts 66 /LPF 06/07/22 Unknown Urine Mucus Few /HPF 06/07/22 Unknown Royal/IV: Voiding Method Indwelling Catheter Active Medications - Current Medications Current Medications: Generic Name Dose Route Start Last Admin Trade Name Freq PRN Reason Stop Dose Admin Acetaminophen 650 mg 06/07/22 04:36 Acetaminophen 325 Mg Tab PO Q4H PRN Pain MILD(1-3)/Fever >100.5/WHALEY Albuterol 2.5 mg 06/07/22 04:36 Albuterol 2.5 Mg/3 Ml Nebu IH Q3HRT PRN Shortness Of Breath Bupropion HCl 75 mg 06/11/22 10:00 Bupropion 75 Mg Tab FEEDTUBE BID [facility] Dextrose 50 ml 06/09/22 18:02 Dextrose 50% In Water (25gm) 50 Ml Syringe IV Q30MIN PRN Hypoglycemia Protocol Famotidine 20 mg 06/11/22 10:00 Famotidine 20 Mg Tab FEEDTUBE DAILY [facility] Fluoxetine HCl 20 mg 06/07/22 10:00 06/10/22 18:51 Fluoxetine 20 Mg Cap PO Not Given QDAY [facility] Insulin Glargine 18 units 06/09/22 18:45 06/10/22 22:25 Insulin Glargine 100 Units/Ml SUB-Q 18 units QHS [facility] Administration Insulin Human Regular 0 units 06/11/22 12:00 Insulin Regular, Human 100 Units/1 Ml SUB-Q Q6HR [facility] Protocol Melatonin 10 mg 06/07/22 22:00 06/10/22 22:24 Melatonin 5 Mg Tab PO Not Given QHS [facility] Olanzapine 2.5 mg 06/07/22 10:00 06/10/22 18:51 Olanzapine 2.5 Mg Tab PO Not Given QDAY [facility] Ondansetron HCl 4 mg 06/07/22 04:36 06/08/22 05:40 Ondansetron 4 Mg/2 Ml Inj IV 4 mg Q8H PRN Administration Nausea And Vomiting Propranolol HCl 10 mg 06/07/22 10:00 06/10/22 22:26 Propranolol 10 Mg Tab PO Not Given BID [facility] Risperidone 2 mg 06/07/22 10:00 06/10/22 22:22 Risperidone 1 Mg Tab PO 2 mg BID [facility] Administration Sodium Chloride 10 ml 06/07/22 10:00 06/10/22 22:24 Sodium Chloride 0.9% 10 Ml Flush Syringe IV 10 ml BID [facility] Administration Sodium Chloride 10 ml 06/07/22 04:36 Sodium Chloride 0.9% 10 Ml Flush Syringe IV PRN PRN LINE FLUSH Trazodone HCl 150 mg 06/07/22 22:00 06/10/22 22:22 Trazodone 50 Mg Tab PO 150 mg QHS [facility] Administration Valproic Acid 1,000 mg 06/11/22 10:00 Valproic Acid 250 Mg/5 Ml Oral Liqd FEEDTUBE BID [facility] Nutrition/Malnutrition Assess - Dietary Evaluation Nutrition/Malnutrition Findings: Nutrition Notes Start: 06/07/22 09:29 Freq: Status: Active Protocol: Document 06/10/22 14:55 CONNOR (Rec: 06/10/22 15:15 CONNOR [id number]) Nutrition Notes Initial or Follow up Brief Note Current Diagnosis Diabetes,Hypertension Other Pertinent Diagnosis Hyperglycemia, Metabolic Encephalopathy & Acidosis, SIRS, Thrombocytopenia, Current Diet TF-Glucerna 1.2 [place] @ 60 ml/hr (from D 06/10). Height 5 ft 6 in Weight 73.57 kg [place] Body Weight (kg) 59.09 BMI 26.2 Weight Status Overweight Subjective/Other Information RD consult for write/manage TF assessment. Secoindary to psychiatric issues, Pt is refusing to take meals nor medications PO, inserted DHT to solve this concern, well tolerated, Pt remains on restrains. I will prescribe TF to provide Pt with energy/protein needs during LOS. Percent of energy/protein needs met: Prescribed TF-Glucerna 1.2 [place] @ 60 ml/hr provides for energy/protein needs (1,726 Kcal/86 g) during LOS, 100% Kcal; 117% AA. #2 Nutrition Diagnosis Inadequate oral intake Etiology Secondary to psychiatric conditions. As Evidenced by Signs and Symptoms Pt refusing to intake meals nor medications via PO. Is patient on ventilator? No Is Patient Ambulatory and/or Out of Bed Yes REE-([place]-St. Jeor-ambulatory/OOB) [ [id number] [id number]] Calculation [facility] Additional Notes Protein: 0.8-1 g/Kg ABW; 59-74 g/day. Fluids: 1 ml/Kcal, or as per MD. Nutrition Intervention Change Diet Order: Discontinue. Nutrition Support: Start TF-Glucerna 1.2 [place] @ 60 ml/hr. Flush: 100 ml water Q 4 hr, or as per MD. Kcal 1,726 Protein (gm) 86 Carbohydrates (gm) 165 Fat (gm) 86 Fluid (mL) 1,158 Fiber (gm) 23 % RDI: 100% Kcal; 117% AA. Goal #1 Provide at least 75% of energy /protein needs through Enteral Feeding during LOS. Follow-Up By: 06/12/22 Additional Comments Start monitoring TF tolerance and BM.
[2022-06-11] MEDS: FAMOTIDINE 20 MG TAB FEEDTUBE SCH (10:42)
[2022-06-11] MEDS: FLUoxetine 20 MG CAP PO SCH (10:42)
[2022-06-11] MEDS: VALPROIC ACID 250 MG/5 ML ORAL LIQD FEEDTUBE SCH ×2 (10:42→22:00)
[2022-06-11] MEDS: risperiDONE 1 MG TAB PO SCH ×2 (10:43→22:00)
--- NOTE | 2022-06-11 10:43 | Progress Note ---
Subjective - Reason for Consult Consult date: 06/11/22 Reason for consult: hx of bipolar - Chief Complaint Chief complaint: The patient was seen today. She is somnolent, and doesn't respond when I call her name. An officer is at bedside. Nurse notes state the patient has been consistently lethergic. Will adjust medication. See below. REVIEW OF SYSTEMS Unable to assess MENTAL STATUS EXAMINATION Unable to assess Assessment: Schizophrenia, Bipolar Disorder Treatment Plan Change Zyprexa 2.5mg po from daily to qhs. This medication can cause daytime drowsiness Sitter: defer to primary Medical: per primary Disposition: Do not recommend acute psychiatric inpatient treatment Will sign off. Thanks Case staffed with Dr. Miranda Mental Status Exam - Vital signs Last Vital Signs Temp 98.3 F 06/11/22 08:06 Pulse 80 06/11/22 08:06 Resp 18 06/11/22 03:35 BP 106/61 06/11/22 08:06 Pulse Ox 94 06/11/22 10:00
[2022-06-11] MEDS: buPROPion 75 MG TAB FEEDTUBE SCH ×2 (18:51→22:00)
[2022-06-11] MEDS: PROPRANOLOL 10 MG TAB PO SCH ×2 (18:51→22:00)
[2022-06-11] MEDS: MELATONIN 5 MG TAB PO SCH (22:00)
[2022-06-11] MEDS: traZODone 50 MG TAB PO SCH (22:00)
[2022-06-11] MEDS: INSULIN GLARGINE 100 UNITS/ML SUB-Q SCH (22:00)
[2022-06-12 05:19] LABS: Hematocrit 41.7 % (30.3-42.9); Hemoglobin 14.1 gm/dl (10.1-14.3); Mean Corpuscular HGB Conc 34 % (30-34); Mean Corpuscular Volume 90 fl (79-97); Red Blood Count 4.62 M/mm3 (3.65-5.03); Red Cell Distribution Width 13.9 % (13.2-15.2)
[2022-06-12 05:20] LABS: Platelet Count 55 K/mm3 (140-440)
[2022-06-12 05:43] LABS: Alanine Aminotransferase 120 units/L (7-56); Albumin 3.1 g/dL (3.9-5); Blood Urea Nitrogen 13 mg/dL (7-17); Calcium 8.6 mg/dL (8.4-10.2); Hemolysis Index 12
[2022-06-12 06:01] LABS: BUN/Creatinine Ratio 22
[2022-06-12] MEDS: VALPROIC ACID 250 MG/5 ML ORAL LIQD FEEDTUBE SCH ×2 (10:47→21:17)
[2022-06-12] MEDS: PROPRANOLOL 10 MG TAB PO SCH ×2 (10:48→21:17)
[2022-06-12] MEDS: FAMOTIDINE 20 MG TAB FEEDTUBE SCH (10:50)
[2022-06-12] MEDS: FLUoxetine 20 MG CAP PO SCH (10:51)
[2022-06-12] MEDS: risperiDONE 1 MG TAB PO SCH ×2 (11:55→21:18)
[2022-06-12] MEDS: INSULIN REGULAR, HUMAN 100 UNITS/1 ML SUB-Q SCH ×3 (12:59→18:00)
--- NOTE | 2022-06-12 16:39 | Progress Note ---
Assessment and Plan Assessment and plan: 57-year-old female with history of diabetes and bipolar disorder and schizophrenia was brought in from long term admitted for DKA Hospital Course: 06/08: Patient remains confused and somnolent but protecting airway. GAP re- opened. Will need to continue insulin gtt. Sodium slowly downtrending, continue D5W + 40 MEQ K infusion. Strict monitoring of sodium so as to not overcorrect. BMP ordered q4hr. Once AG closed, can downgrade to medical floor. 06/09: Patient remain encephalopathic, only arousable to tactile stimuli. Stable on RA, able to protect her airway. UDS pending, mental health was also consulted. Patient also with hypernatremia, continue continue IVF and encourage PO intake. This am labs pending, if anion gap closed will transition to subQ insulin. Worsening thrombocytopenia this am, unclear etiology, no heparin/lovenox given this admit. Will consult hematology for further eval. 06/10: Patient remains lethargic, follow commands intermittently and refusing PO meds, however, accept juice and water. This is most likely secondary to psych issues and patient has not had any of her medication for over 48hrs. Mental health/spych consult pending. Patient transitioned to subQ insulin overnight, SSI adjusted. Will insert a DHT for meds and enteral nutrition. Worsen t hrombocytopenia, hematology recommendations noted. Pending CT abd/pelvis, will also add CT head/brain to r/o any intracranial abnormality. Royal placed overnight for urinary retention. Hypernatremia improved, agnes hold D5w gtt and continue to monitor electrolytes. 06/11: Patient remains somnolent. Psych team reviewed medications and made some adjustment. I did discuss with the primary care physician at the [facility] the unable to manage the patient requiring NG tube at this time for nutritional status. Considering her condition of diabetes and hyperglycemia we will wanted to be more awake prior to discharge back to the facility. This is likely secondary to her bipolar disorder psych input is appreciated. Platelets appear to be improving imaging studies as documented above did not show any acute pathology. Mildly elevated LFTs we will recheck again in a.m. anticipate discharge in 24 to 48 hours 06/12: Patient seen and examined ammonia level checked actually low. Blood sugar is stable she remains obtunded. We will continue to monitor additional 24 hours of updated primary physician at the [facility]. Avoid all sedatives at this time. She continues to maintain her airway. Continue aspiration precautions Assessment and Plan #Uncontrolled Type II Diabetes Mellitus with Hyperglycemia #Hyperosmolar nonketotic coma - [id number] - s/p DKA protocol - Transitioned to subQ insulin overnight - Hyperglycemic this am, SSI adjusted - Patient refusing PO intake, plan for DHT inserting for meds and feeding - Monitor and replace electrolytes as needed - Monitor anion gap, serial Labs ordered - Nutrition consulted #Acute Metabolic Encephalopathy #H/o Bipolar Disorder and Schizophrenia - etiology likely HHS and severe hypernatremia - S/p DKA protocol, UDS pending - UA only demonstrates +2 glucose, consistent with diagnosis - CT head/brain pending - Encourage PO intake, Continue to trend Na - Home meds resumed - Avoid benzodiazepine to reduce the possibility of delirium - PRN Analgesia for pain control - Maintenance of sleep-wake cycle - Mental health consulted #Acute kidney injury due to vasomotor nephropathy-resolved #Hypernatremia--improved #Hypokalemia- resolved #Metabolic acidosis - Most likely due to DKA - Na: 167 on admission - renal function normalized - Remains on insulin gtt and IVF resuscitation per DKA protocol - Strict intake and output - Avoid nephrotoxic medications; Renally dose medications - Royal in place - Monitor and replace electrolytes as needed #SIRS with Organ Dysfunction (POA)- Resolved - Presented with tachypnea, leukocytosis, metabolic acidosis, and Scr of 2.1 - Most likely due to DKA - s/p DKA protocol. Scr. improved post IVF resuscitation - Remains afebrile, symptoms improved, and VSS - Will continue to monitor #Thrombocytopenia #Polycythemia #Hemoconcentration - Presented with high hgb/hct and normal plt - Dropped in plt this am, unclear etiology - No heparin/Lovenox administered since admit - H&H stable, no s/s of any active bleeding - Hematology Consulted, appreciated - CT abd/pelvsi pending - Hold off AC at this time - Transfuse for hgb less than 7 #Urinary Retention - Bladder scan over 1L retention, royal placed - Britany royal for now, reassess per protocol #Essential hypertension - BP stable - Continue home meds - Continue blood pressure monitor per protocol - Maintain SBP above 160 #GI/DVT Prophylaxis - PPI- Pepcid - SCDs to bilateral lower extremities while in bed History Interval history: Patient seen and examined remains very lethargic and somnolent. Still refusing to eat. Remains obtunded. Hospitalist Physical - Physical exam Narrative exam: VITAL SIGNS: Reviewed. GENERAL: The patient appears normally developed, remains very somnolent. Opens eyes to noxious stimuli but does not respond vital signs as documented. HEAD: No signs of head trauma. EYES: Pupils are equal. Extraocular motions intact. EARS: Hearing grossly intact. MOUTH: Oropharynx is normal. NECK: No adenopathy, no JVD. CHEST: Chest with clear breath sounds bilaterally. No wheezes, rales, or rhonchi. CARDIAC: Regular rate and rhythm. S1 and S2, without murmurs, gallops, or rubs. VASCULAR: No Edema. Peripheral pulses normal and equal in all extremities. ABDOMEN: Soft, non tender and non distended. No rebound or guarding, and no masses palpated. Bowel Sounds normal. MUSCULOSKELETAL: Good range of motion of all major joints. Extremities without clubbing, cyanosis or edema. NEUROLOGIC EXAM: Moves all extremities, awake but mainly has her eyes closed and somnolent. Does not follow any commands. Has not spoken since she has been here. PSYCHIATRIC: Mood sedated SKIN: detail exam as documented in skin assessment - Constitutional Vitals: Temp Pulse Resp BP Pulse Ox 97.5 F L 72 18 126/67 98 06/12/22 12:04 06/12/22 12:04 06/12/22 12:04 06/12/22 12:04 06/12/22 12:04 General appearance: Present: no acute distress, well-nourished, obese Results - Labs CBC & Chem 7: 06/12/22 04:53 06/12/22 04:53 Labs: Laboratory Last Values WBC 5.0 K/mm3 (4.5-11.0) 06/12/22 04:53 RBC 4.62 M/mm3 (3.65-5.03) 06/12/22 04:53 Hgb 14.1 gm/dl (10.1-14.3) 06/12/22 04:53 Hct 41.7 % (30.3-42.9) 06/12/22 04:53 MCV 90 fl (79-97) 06/12/22 04:53 MCH 31 pg (28-32) 06/12/22 04:53 MCHC 34 % (30-34) 06/12/22 04:53 RDW 13.9 % (13.2-15.2) 06/12/22 04:53 Plt Count 55 K/mm3 (140-440) L 06/12/22 04:53 Lymph % (Auto) 11.1 % (13.4-35.0) L 06/08/22 03:51 [place] % (Auto) 5.7 % (0.0-7.3) 06/08/22 03:51 Eos % (Auto) 0.7 % (0.0-4.3) 06/08/22 03:51 Baso % (Auto) 0.2 % (0.0-1.8) 06/08/22 03:51 Lymph # (Auto) 1.2 K/mm3 (1.2-5.4) 06/08/22 03:51 [place] # (Auto) 0.6 K/mm3 (0.0-0.8) 06/08/22 03:51 Eos # (Auto) 0.1 K/mm3 (0.0-0.4) 06/08/22 03:51 Baso # (Auto) 0.0 K/mm3 (0.0-0.1) 06/08/22 03:51 Seg Neutrophils % 82.3 % (40.0-70.0) H 06/08/22 03:51 Seg Neutrophils # 8.7 K/mm3 (1.8-7.7) H 06/08/22 03:51 Fibrinogen 423 mg/dl (211-480) 06/10/22 04:30 VBG pH 7.348 (7.320-7.420) 06/07/22 01:47 Sodium 144 mmol/L (137-145) 06/12/22 04:53 Potassium 4.2 mmol/L (3.6-5.0) 06/12/22 04:53 Chloride 107.7 mmol/L (98-107) H 06/12/22 04:53 Carbon Dioxide 28 mmol/L (22-30) 06/12/22 04:53 Anion Gap 13 mmol/L 06/12/22 04:53 BUN 13 mg/dL (7-17) 06/12/22 04:53 Creatinine 0.6 mg/dL (0.6-1.2) 06/12/22 04:53 Estimated GFR > 60 ml/min 06/12/22 04:53 BUN/Creatinine Ratio 22 % 06/12/22 04:53 Glucose 133 mg/dL (65-100) H 06/12/22 04:53 POC Glucose 149 mg/dL (70-105) H 06/11/22 21:49 Calcium 8.6 mg/dL (8.4-10.2) 06/12/22 04:53 Phosphorus 2.70 mg/dL (2.5-4.5) 06/11/22 03:40 Magnesium 2.00 mg/dL (1.7-2.3) 06/11/22 03:40 Iron 89 ug/dL (37-170) 06/10/22 04:30 TIBC 122 mcg/dL (250-450) L 06/10/22 04:30 Ferritin 230.8 ng/mL (10.0-200.0) H 06/10/22 04:30 Total Bilirubin 0.70 mg/dL (0.1-1.2) 06/12/22 04:53 AST 71 units/L (5-40) H 06/12/22 04:53 ALT 120 units/L (7-56) H 06/12/22 04:53 Alkaline Phosphatase 93 units/L (35-129) 06/12/22 04:53 Ammonia < 10.0 umol/L (25-60) L 06/12/22 07:27 Total Protein 4.9 g/dL (6.3-8.2) L 06/12/22 04:53 Albumin 3.1 g/dL (3.9-5) L 06/12/22 04:53 Albumin/Globulin Ratio 1.7 % 06/12/22 04:53 Urine Color [place] (Yellow) 06/07/22 Unknown Urine Turbidity Clear (Clear) 06/07/22 Unknown Urine pH 5.0 (5.0-7.0) 06/07/22 Unknown Ur Specific [place] 1.015 (1.003-1.030) 06/07/22 Unknown Urine Protein 30 mg/dl mg/dL (Negative) 06/07/22 Unknown Urine Glucose (UA) 2+ mg/dL (Negative) 06/07/22 Unknown Urine Ketones Negative mg/dL (Negative) 06/07/22 Unknown Urine Blood Negative (Negative) 06/07/22 Unknown Urine Nitrite Negative (Negative) 06/07/22 Unknown Urine Bilirubin 4+ (Negative) 06/07/22 Unknown Urine Ictotest Negative (Negative) 06/07/22 Unknown Urine Urobilinogen 0.0 mg/dL (<2.0) 06/07/22 Unknown Ur Leukocyte Esterase 1+ (Negative) 06/07/22 Unknown Urine WBC (Auto) 5.0 /HPF (0.0-6.0) 06/07/22 Unknown Urine RBC (Auto) < 1.0 /HPF (0.0-6.0) 06/07/22 Unknown Hyaline Casts 66 /LPF 06/07/22 Unknown Urine Mucus Few /HPF 06/07/22 Unknown Royal/IV: Voiding Method Indwelling Catheter Active Medications - Current Medications Current Medications: Generic Name Dose Route Start Last Admin Trade Name Freq PRN Reason Stop Dose Admin Acetaminophen 650 mg 06/07/22 04:36 Acetaminophen 325 Mg Tab PO Q4H PRN Pain MILD(1-3)/Fever >100.5/WHALEY Albuterol 2.5 mg 06/07/22 04:36 Albuterol 2.5 Mg/3 Ml Nebu IH Q3HRT PRN Shortness Of Breath Bupropion HCl 75 mg 06/11/22 10:00 06/11/22 22:00 Bupropion 75 Mg Tab FEEDTUBE Not Given BID DAGMAR Dextrose 50 ml 06/09/22 18:02 Dextrose 50% In Water (25gm) 50 Ml Syringe IV Q30MIN PRN Hypoglycemia Protocol Famotidine 20 mg 06/11/22 10:00 06/11/22 10:42 Famotidine 20 Mg Tab FEEDTUBE 20 mg DAILY DAGMAR Administration Fluoxetine HCl 20 mg 06/07/22 10:00 06/11/22 10:42 Fluoxetine 20 Mg Cap PO 20 mg QDAY DAGMAR Administration Insulin Glargine 18 units 06/09/22 18:45 06/11/22 22:00 Insulin Glargine 100 Units/Ml SUB-Q Not Given QHS DAGMAR Insulin Human Regular 0 units 06/11/22 12:00 06/12/22 00:00 Insulin Regular, Human 100 Units/1 Ml SUB-Q Not Given Q6HR DAGMAR Protocol Melatonin 10 mg 06/07/22 22:00 06/11/22 22:00 Melatonin 5 Mg Tab PO Not Given QHS DAGMAR Olanzapine 2.5 mg 06/11/22 22:00 Olanzapine 2.5 Mg Tab PO QHS DAGMAR Ondansetron HCl 4 mg 06/07/22 04:36 06/08/22 05:40 Ondansetron 4 Mg/2 Ml Inj IV 4 mg Q8H PRN Administration Nausea And Vomiting Propranolol HCl 10 mg 06/07/22 10:00 06/11/22 22:00 Propranolol 10 Mg Tab PO 10 mg BID DAGMAR Administration Risperidone 2 mg 06/07/22 10:00 06/11/22 22:00 Risperidone 1 Mg Tab PO Not Given BID DAGMAR Sodium Chloride 10 ml 06/07/22 10:00 06/11/22 22:00 Sodium Chloride 0.9% 10 Ml Flush Syringe IV 10 ml BID DAGMAR Administration Sodium Chloride 10 ml 06/07/22 04:36 Sodium Chloride 0.9% 10 Ml Flush Syringe IV PRN PRN LINE FLUSH Trazodone HCl 150 mg 06/07/22 22:00 06/11/22 22:00 Trazodone 50 Mg Tab PO Not Given QHS DAGMAR Valproic Acid 1,000 mg 06/11/22 10:00 06/11/22 22:00 Valproic Acid 250 Mg/5 Ml Oral Liqd FEEDTUBE Not Given BID [facility] Nutrition/Malnutrition Assess - Dietary Evaluation Nutrition/Malnutrition Findings: Nutrition Notes Start: 06/07/22 09:29 Freq: Status: Active Protocol: Document 06/12/22 12:13 CLIF (Rec: 06/12/22 12:17 [id number] Nutrition Notes Initial or Follow up Reassessment Current Diagnosis Diabetes,Hypertension Other Pertinent Diagnosis s/p DKA, metabolic encephalopathy, bipolar d/o, schizophrenia Current Diet Glucerna 1.2 at 60ml/hr Labs/Tests Reviewed Pertinent Medications Reviewed Height 5 ft 6 in Weight 80.2 kg [place] Body Weight (kg) 59.09 BMI 28.5 Weight Status Overweight Subjective/Other Information Pt pulled DHT out and refuses to have it re-inserted; also refusing PO intake. Burn Absent Trauma Absent #2 Nutrition Diagnosis Inadequate oral intake Diagnosis Progress(for reassessment Continues documentation) #1 Nutrition Diagnosis Altered nutrition-related laboratory values As Evidenced by Signs and Symptoms POC Glu labs improving Diagnosis Progress(for reassessment Improved documentation) Is patient on ventilator? No Is Patient Ambulatory and/or Out of Bed No REE-([facility]-confined to bed) [phone] Calculation Used for Recommendations [facility] Additional Notes Pro needs 0.8-1g/k-80g/ day Fluid needs 1ml/kcal Nutrition Intervention Change Diet Order: Resume PO diet when feasible Goal #1 Resume either PO diet or EN support to meet nutrient needs Follow-Up By: 06/16/22 Additional Comments F/U: PO intake vs re-start of EN support
[2022-06-12] MEDS: buPROPion 75 MG TAB FEEDTUBE SCH ×2 (17:57→21:18)
[2022-06-12] MEDS: INSULIN GLARGINE 100 UNITS/ML SUB-Q SCH (21:17)
[2022-06-12] MEDS: traZODone 50 MG TAB PO SCH (21:17)
[2022-06-12] MEDS: MELATONIN 5 MG TAB PO SCH (21:17)
[2022-06-13] MEDS: INSULIN REGULAR, HUMAN 100 UNITS/1 ML SUB-Q SCH ×5 (00:05→22:45)
[2022-06-13] MEDS ORDERED: SODIUM CHLORIDE 0.9% 1000 ML 1,000 ML IV SCH (09:15)
--- NOTE | 2022-06-13 09:16 | Progress Note ---
Assessment and Plan Assessment and plan: 57-year-old female with history of diabetes and bipolar disorder and schizophrenia was brought in from [facility] admitted for DKA Hospital Course: 06/08: Patient remains confused and somnolent but protecting airway. GAP re- opened. Will need to continue insulin gtt. Sodium slowly downtrending, continue D5W + 40 MEQ K infusion. Strict monitoring of sodium so as to not overcorrect. BMP ordered q4hr. Once AG closed, can downgrade to medical floor. 06/09: Patient remain encephalopathic, only arousable to tactile stimuli. Stable on RA, able to protect her airway. UDS pending, mental health was also consulted. Patient also with hypernatremia, continue continue IVF and encourage PO intake. This am labs pending, if anion gap closed will transition to subQ insulin. Worsening thrombocytopenia this am, unclear etiology, no heparin/lovenox given this admit. Will consult hematology for further eval. 06/10: Patient remains lethargic, follow commands intermittently and refusing PO meds, however, accept juice and water. This is most likely secondary to psych issues and patient has not had any of her medication for over 48hrs. Mental health/spych consult pending. Patient transitioned to subQ insulin overnight, SSI adjusted. Will insert a DHT for meds and enteral nutrition. Worsen t hrombocytopenia, hematology recommendations noted. Pending CT abd/pelvis, will also add CT head/brain to r/o any intracranial abnormality. Royal placed overnight for urinary retention. Hypernatremia improved, agnes hold D5w gtt and continue to monitor electrolytes. 06/11: Patient remains somnolent. Psych team reviewed medications and made some adjustment. I did discuss with the primary care physician at the [facility] the unable to manage the patient requiring NG tube at this time for nutritional status. Considering her condition of diabetes and hyperglycemia we will wanted to be more awake prior to discharge back to the facility. This is likely secondary to her bipolar disorder psych input is appreciated. Platelets appear to be improving imaging studies as documented above did not show any acute pathology. Mildly elevated LFTs we will recheck again in a.m. anticipate discharge in 24 to 48 hours 06/12: Patient seen and examined ammonia level checked actually low. Blood sugar is stable she remains obtunded. We will continue to monitor additional 24 hours of updated primary physician at the [facility]. Avoid all sedatives at this time. She continues to maintain her airway. Continue aspiration precautions 06/13: Patient still obtunded lethargic although moving around more. I had a significant conversation with the physician at the [facility] who recommends to consider an LTAC is being unable to manage the patient at the [facility]. Consult has been placed. We will start some gentle hydration as patient's urine appears concentrated. Reduce Insulin dose at this time. Assessment and Plan #Uncontrolled Type II Diabetes Mellitus with Hyperglycemia #Hyperosmolar nonketotic coma - [id number] - s/p DKA protocol - Transitioned to subQ insulin overnight - Hyperglycemic this am, SSI adjusted - Patient refusing PO intake, plan for DHT inserting for meds and feeding - Monitor and replace electrolytes as needed - Monitor anion gap, serial Labs ordered - Nutrition consulted #Acute Metabolic Encephalopathy #H/o Bipolar Disorder and Schizophrenia - etiology likely HHS and severe hypernatremia - S/p DKA protocol, UDS pending - UA only demonstrates +2 glucose, consistent with diagnosis - CT head/brain pending - Encourage PO intake, Continue to trend Na - Home meds resumed - Avoid benzodiazepine to reduce the possibility of delirium - PRN Analgesia for pain control - Maintenance of sleep-wake cycle - Mental health consulted #Acute kidney injury due to vasomotor nephropathy-resolved #Hypernatremia--improved #Hypokalemia- resolved #Metabolic acidosis - Most likely due to DKA - Na: 167 on admission - renal function normalized - Remains on insulin gtt and IVF resuscitation per DKA protocol - Strict intake and output - Avoid nephrotoxic medications; Renally dose medications - Royal in place - Monitor and replace electrolytes as needed #SIRS with Organ Dysfunction (POA)- Resolved - Presented with tachypnea, leukocytosis, metabolic acidosis, and Scr of 2.1 - Most likely due to DKA - s/p DKA protocol. Scr. improved post IVF resuscitation - Remains afebrile, symptoms improved, and VSS - Will continue to monitor #Thrombocytopenia #Polycythemia #Hemoconcentration - Presented with high hgb/hct and normal plt - Dropped in plt this am, unclear etiology - No heparin/Lovenox administered since admit - H&H stable, no s/s of any active bleeding - Hematology Consulted, appreciated - CT abd/pelvsi pending - Hold off AC at this time - Transfuse for hgb less than 7 #Urinary Retention - Bladder scan over 1L retention, royal placed - Kepp royal for now, reassess per protocol #Essential hypertension - BP stable - Continue home meds - Continue blood pressure monitor per protocol - Maintain SBP above 160 #GI/DVT Prophylaxis - PPI- Pepcid - SCDs to bilateral lower extremities while in bed History Interval history: Patient seen and examined remains very lethargic and somnolent. Moves around some. Still refusing to eat. Remains obtunded. Hospitalist Physical - Physical exam Narrative exam: VITAL SIGNS: Reviewed. GENERAL: The patient appears normally developed, remains very somnolent. Opens eyes to noxious stimuli but does not respond vital signs as documented. HEAD: No signs of head trauma. EYES: Pupils are equal. Extraocular motions intact. EARS: Hearing grossly intact. MOUTH: Oropharynx is normal. NECK: No adenopathy, no JVD. CHEST: Chest with clear breath sounds bilaterally. No wheezes, rales, or rhonchi. CARDIAC: Regular rate and rhythm. S1 and S2, without murmurs, gallops, or rubs. VASCULAR: No Edema. Peripheral pulses normal and equal in all extremities. ABDOMEN: Soft, non tender and non distended. No rebound or guarding, and no masses palpated. Bowel Sounds normal. MUSCULOSKELETAL: Good range of motion of all major joints. Extremities without clubbing, cyanosis or edema. NEUROLOGIC EXAM: Moves all extremities, awake but mainly has her eyes closed and somnolent. Does not follow any commands. Has not spoken since she has been here. PSYCHIATRIC: Mood sedated SKIN: detail exam as documented in skin assessment - Constitutional Vitals: Temp Pulse Resp BP Pulse Ox 97.8 F 89 18 111/66 99 06/12/22 23:38 06/13/22 08:56 06/13/22 08:56 06/13/22 08:56 06/13/22 08:56 General appearance: Present: no acute distress, well-nourished, obese Results - Labs CBC & Chem 7: 06/12/22 04:53 06/12/22 04:53 Labs: Laboratory Last Values WBC 5.0 K/mm3 (4.5-11.0) 06/12/22 04:53 RBC 4.62 M/mm3 (3.65-5.03) 06/12/22 04:53 Hgb 14.1 gm/dl (10.1-14.3) 06/12/22 04:53 Hct 41.7 % (30.3-42.9) 06/12/22 04:53 MCV 90 fl (79-97) 06/12/22 04:53 MCH 31 pg (28-32) 06/12/22 04:53 MCHC 34 % (30-34) 06/12/22 04:53 RDW 13.9 % (13.2-15.2) 06/12/22 04:53 Plt Count 55 K/mm3 (140-440) L 06/12/22 04:53 Lymph % (Auto) 11.1 % (13.4-35.0) L 06/08/22 03:51 [place] % (Auto) 5.7 % (0.0-7.3) 06/08/22 03:51 Eos % (Auto) 0.7 % (0.0-4.3) 06/08/22 03:51 Baso % (Auto) 0.2 % (0.0-1.8) 06/08/22 03:51 Lymph # (Auto) 1.2 K/mm3 (1.2-5.4) 06/08/22 03:51 [place] # (Auto) 0.6 K/mm3 (0.0-0.8) 06/08/22 03:51 Eos # (Auto) 0.1 K/mm3 (0.0-0.4) 06/08/22 03:51 Baso # (Auto) 0.0 K/mm3 (0.0-0.1) 06/08/22 03:51 Seg Neutrophils % 82.3 % (40.0-70.0) H 06/08/22 03:51 Seg Neutrophils # 8.7 K/mm3 (1.8-7.7) H 06/08/22 03:51 Fibrinogen 423 mg/dl (211-480) 06/10/22 04:30 VBG pH 7.348 (7.320-7.420) 06/07/22 01:47 Sodium 144 mmol/L (137-145) 06/12/22 04:53 Potassium 4.2 mmol/L (3.6-5.0) 06/12/22 04:53 Chloride 107.7 mmol/L (98-107) H 06/12/22 04:53 Carbon Dioxide 28 mmol/L (22-30) 06/12/22 04:53 Anion Gap 13 mmol/L 06/12/22 04:53 BUN 13 mg/dL (7-17) 06/12/22 04:53 Creatinine 0.6 mg/dL (0.6-1.2) 06/12/22 04:53 Estimated GFR > 60 ml/min 06/12/22 04:53 BUN/Creatinine Ratio 22 % 06/12/22 04:53 Glucose 133 mg/dL (65-100) H 06/12/22 04:53 POC Glucose 91 mg/dL (70-105) 06/13/22 07:44 Calcium 8.6 mg/dL (8.4-10.2) 06/12/22 04:53 Phosphorus 2.70 mg/dL (2.5-4.5) 06/11/22 03:40 Magnesium 2.00 mg/dL (1.7-2.3) 06/11/22 03:40 Iron 89 ug/dL (37-170) 06/10/22 04:30 TIBC 122 mcg/dL (250-450) L 06/10/22 04:30 Ferritin 230.8 ng/mL (10.0-200.0) H 06/10/22 04:30 Total Bilirubin 0.70 mg/dL (0.1-1.2) 06/12/22 04:53 AST 71 units/L (5-40) H 06/12/22 04:53 ALT 120 units/L (7-56) H 06/12/22 04:53 Alkaline Phosphatase 93 units/L (35-129) 06/12/22 04:53 Ammonia < 10.0 umol/L (25-60) L 06/12/22 07:27 Total Protein 4.9 g/dL (6.3-8.2) L 06/12/22 04:53 Albumin 3.1 g/dL (3.9-5) L 06/12/22 04:53 Albumin/Globulin Ratio 1.7 % 06/12/22 04:53 Urine Color [place] (Yellow) 06/07/22 Unknown Urine Turbidity Clear (Clear) 06/07/22 Unknown Urine pH 5.0 (5.0-7.0) 06/07/22 Unknown Ur Specific [place] 1.015 (1.003-1.030) 06/07/22 Unknown Urine Protein 30 mg/dl mg/dL (Negative) 06/07/22 Unknown Urine Glucose (UA) 2+ mg/dL (Negative) 06/07/22 Unknown Urine Ketones Negative mg/dL (Negative) 06/07/22 Unknown Urine Blood Negative (Negative) 06/07/22 Unknown Urine Nitrite Negative (Negative) 06/07/22 Unknown Urine Bilirubin 4+ (Negative) 06/07/22 Unknown Urine Ictotest Negative (Negative) 06/07/22 Unknown Urine Urobilinogen 0.0 mg/dL (<2.0) 06/07/22 Unknown Ur Leukocyte Esterase 1+ (Negative) 06/07/22 Unknown Urine WBC (Auto) 5.0 /HPF (0.0-6.0) 06/07/22 Unknown Urine RBC (Auto) < 1.0 /HPF (0.0-6.0) 06/07/22 Unknown Hyaline Casts 66 /LPF 06/07/22 Unknown Urine Mucus Few /HPF 06/07/22 Unknown Royal/IV: Voiding Method Indwelling Catheter Active Medications - Current Medications Current Medications: Generic Name Dose Route Start Last Admin Trade Name Freq PRN Reason Stop Dose Admin Acetaminophen 650 mg 06/07/22 04:36 Acetaminophen 325 Mg Tab PO Q4H PRN Pain MILD(1-3)/Fever >100.5/WHALEY Albuterol 2.5 mg 06/07/22 04:36 Albuterol 2.5 Mg/3 Ml Nebu IH Q3HRT PRN Shortness Of Breath Bupropion HCl 75 mg 06/11/22 10:00 06/12/22 21:18 Bupropion 75 Mg Tab FEEDTUBE Not Given BID DAGMAR Dextrose 50 ml 06/09/22 18:02 Dextrose 50% In Water (25gm) 50 Ml Syringe IV Q30MIN PRN Hypoglycemia Protocol Famotidine 20 mg 06/11/22 10:00 06/12/22 10:50 Famotidine 20 Mg Tab FEEDTUBE Not Given DAILY DAGMAR Fluoxetine HCl 20 mg 06/07/22 10:00 06/12/22 10:51 Fluoxetine 20 Mg Cap PO Not Given QDAY DAGMAR Sodium Chloride 1,000 mls @ 75 mls/hr 06/13/22 09:15 Nacl 0.9% 1000 Ml IV DIRECT [facility] Insulin Glargine 18 units 06/09/22 18:45 06/12/22 21:17 Insulin Glargine 100 Units/Ml SUB-Q Not Given QHS [facility] Insulin Human Regular 0 units 06/11/22 12:00 06/13/22 07:49 Insulin Regular, Human 100 Units/1 Ml SUB-Q Not Given Q6HR [facility] Protocol Melatonin 10 mg 06/07/22 22:00 06/12/22 21:17 Melatonin 5 Mg Tab PO Not Given QHS [facility] Olanzapine 2.5 mg 06/11/22 22:00 06/12/22 22:12 Olanzapine 2.5 Mg Tab PO Not Given QHS [facility] Ondansetron HCl 4 mg 06/07/22 04:36 06/08/22 05:40 Ondansetron 4 Mg/2 Ml Inj IV 4 mg Q8H PRN Administration Nausea And Vomiting Propranolol HCl 10 mg 06/07/22 10:00 06/12/22 21:17 Propranolol 10 Mg Tab PO Not Given BID [facility] Risperidone 2 mg 06/07/22 10:00 06/12/22 21:18 Risperidone 1 Mg Tab PO Not Given BID [facility] Sodium Chloride 10 ml 06/07/22 10:00 06/12/22 21:17 Sodium Chloride 0.9% 10 Ml Flush Syringe IV Not Given BID [facility] Sodium Chloride 10 ml 06/07/22 04:36 Sodium Chloride 0.9% 10 Ml Flush Syringe IV PRN PRN LINE FLUSH Trazodone HCl 150 mg 06/07/22 22:00 06/12/22 21:17 Trazodone 50 Mg Tab PO Not Given QHS [facility] Valproic Acid 1,000 mg 06/11/22 10:00 06/12/22 21:17 Valproic Acid 250 Mg/5 Ml Oral Liqd FEEDTUBE Not Given BID [facility] Nutrition/Malnutrition Assess - Dietary Evaluation Nutrition/Malnutrition Findings: Nutrition Notes Start: 06/07/22 09:29 Freq: Status: Active Protocol: Document 06/12/22 12:13 CLIF (Rec: 06/12/22 12:17 CLIF [id number]) Nutrition Notes Initial or Follow up Reassessment Current Diagnosis Diabetes,Hypertension Other Pertinent Diagnosis s/p DKA, metabolic encephalopathy, bipolar d/o, schizophrenia Current Diet Glucerna 1.2 at 60ml/hr Labs/Tests Reviewed Pertinent Medications Reviewed Height 5 ft 6 in Weight 80.2 kg [place] Body Weight (kg) 59.09 BMI 28.5 Weight Status Overweight Subjective/Other Information Pt pulled DHT out and refuses to have it re-inserted; also refusing PO intake. Burn Absent Trauma Absent #2 Nutrition Diagnosis Inadequate oral intake Diagnosis Progress(for reassessment Continues documentation) #1 Nutrition Diagnosis Altered nutrition-related laboratory values As Evidenced by Signs and Symptoms POC Glu labs improving Diagnosis Progress(for reassessment Improved documentation) Is patient on ventilator? No Is Patient Ambulatory and/or Out of Bed No REE-([facility]-confined to bed) [phone] Calculation Used for Recommendations [facility] Additional Notes Pro needs 0.8-1g/k-80g/ day Fluid needs 1ml/kcal Nutrition Intervention Change Diet Order: Resume PO diet when feasible Goal #1 Resume either PO diet or EN support to meet nutrient needs Follow-Up By: 06/16/22 Additional Comments F/U: PO intake vs re-start of EN support
[2022-06-13] MEDS: VALPROIC ACID 250 MG/5 ML ORAL LIQD FEEDTUBE SCH (10:11)
[2022-06-13] MEDS: PROPRANOLOL 10 MG TAB PO SCH (10:16)
[2022-06-13] MEDS: FAMOTIDINE 20 MG TAB FEEDTUBE SCH (10:16)
--- NOTE | 2022-06-13 11:02 | Discharge Summary ---
Providers - Providers Date of Admission: 06/07/22 03:06 Attending physician: NANDO JARVIS MD 06/07/22 04:42 Consult to Dietitian/Nutrition [CONS] Routine Physician Instructions: Reason For Exam: DKA Reason for Consult: Nutrition Recommendations Reason for Consult: Diet education 06/09/22 13:02 Consult to Physician [CONS] Routine Comment: Consulting Provider: CHAD FRASER Physician Instructions: Reason For Exam: Worsen thrombocytopenia 06/09/22 14:03 Consult to Mental Health [CONS] Routine Reason For Exam: Schizophrenia 06/10/22 12:49 Consult to Dietitian/Nutrition [CONS] Routine Physician Instructions: Reason For Exam: Reason for Consult: Write/Manage Tube Feeding Primary care physician: BAGEL MAKER Hospitalization Reason for admission: dka Condition: Stable Hospital course: 57-year-old female with history of diabetes and bipolar disorder and schizophrenia was brought in from [facility] admitted for DKA Hospital Course: 06/08: Patient remains confused and somnolent but protecting airway. GAP re- opened. Will need to continue insulin gtt. Sodium slowly downtrending, continue D5W + 40 MEQ K infusion. Strict monitoring of sodium so as to not overcorrect. BMP ordered q4hr. Once AG closed, can downgrade to medical floor. 06/09: Patient remain encephalopathic, only arousable to tactile stimuli. Stable on RA, able to protect her airway. UDS pending, mental health was also consulted. Patient also with hypernatremia, continue continue IVF and encourage PO intake. This am labs pending, if anion gap closed will transition to subQ insulin. Worsening thrombocytopenia this am, unclear etiology, no heparin/lovenox given this admit. Will consult hematology for further eval. 06/10: Patient remains lethargic, follow commands intermittently and refusing PO meds, however, accept juice and water. This is most likely secondary to psych issues and patient has not had any of her medication for over 48hrs. Mental health/spych consult pending. Patient transitioned to subQ insulin overnight, SSI adjusted. Will insert a DHT for meds and enteral nutrition. Worsen thrombocytopenia, hematology recommendations noted. Pending CT abd/pelvis, will also add CT head/brain to r/o any intracranial abnormality. Royal placed overnight for urinary retention. Hypernatremia improved, agnes hold D5w gtt and continue to monitor electrolytes. 06/11: Patient remains somnolent. Psych team reviewed medications and made some adjustment. I did discuss with the primary care physician at the [facility] the unable to manage the patient requiring NG tube at this time for nutritional status. Considering her condition of diabetes and hyperglycemia we will wanted to be more awake prior to discharge back to the facility. This is likely secondary to her bipolar disorder psych input is appreciated. Platelets appear to be improving imaging studies as documented above did not show any acute pathology. Mildly elevated LFTs we will recheck again in a.m. anticipate discharge in 24 to 48 hours 06/12: Patient seen and examined ammonia level checked actually low. Blood sugar is stable she remains obtunded. We will continue to monitor additional 24 hours of updated primary physician at the [facility]. Avoid all sedatives at this time. She continues to maintain her airway. Continue aspiration precautions 06/13: Patient still obtunded lethargic although moving around more. I had a significant conversation with the physician at the [facility] who recommends to consider an LTAC is being unable to manage the patient at the [facility]. Consult has been placed. We will start some gentle hydration as patient's urine appears concentrated. Reduce Insulin dose at this time. Remarkable, she woke up later today and asked for food, she is pleasant, AAO X 3 and conversational. Will discontinue the LTAC request and discharge patient back with Law [employer]. Counselling provided. Outpatient Psych recommended Assessment and Plan #Uncontrolled Type II Diabetes Mellitus with Hyperglycemia #Hyperosmolar nonketotic coma - [id number] - s/p DKA protocol - Transitioned to subQ insulin overnight - Hyperglycemic this am, SSI adjusted - Patient refusing PO intake, plan for DHT inserting for meds and feeding - Monitor and replace electrolytes as needed - Monitor anion gap, serial Labs ordered - Nutrition consulted #Acute Metabolic Encephalopathy #H/o Bipolar Disorder and Schizophrenia - etiology likely HHS and severe hypernatremia - S/p DKA protocol, UDS pending - UA only demonstrates +2 glucose, consistent with diagnosis - CT head/brain pending - Encourage PO intake, Continue to trend Na - Home meds resumed - Avoid benzodiazepine to reduce the possibility of delirium - PRN Analgesia for pain control - Maintenance of sleep-wake cycle - Mental health consulted #Acute kidney injury due to vasomotor nephropathy-resolved #Hypernatremia--improved #Hypokalemia- resolved #Metabolic acidosis - Most likely due to DKA - Na: 167 on admission - renal function normalized - Remains on insulin gtt and IVF resuscitation per DKA protocol - Strict intake and output - Avoid nephrotoxic medications; Renally dose medications - Royal in place - Monitor and replace electrolytes as needed #SIRS with Organ Dysfunction (POA)- Resolved - Presented with tachypnea, leukocytosis, metabolic acidosis, and Scr of 2.1 - Most likely due to DKA - s/p DKA protocol. Scr. improved post IVF resuscitation - Remains afebrile, symptoms improved, and VSS - Will continue to monitor #Thrombocytopenia #Polycythemia #Hemoconcentration - Presented with high hgb/hct and normal plt - Dropped in plt this am, unclear etiology - No heparin/Lovenox administered since admit - H&H stable, no s/s of any active bleeding - Hematology Consulted, appreciated - CT abd/pelvsi pending - Hold off AC at this time - Transfuse for hgb less than 7 #Urinary Retention - Bladder scan over 1L retention, royal placed - Kepp royal for now, reassess per protocol #Essential hypertension - BP stable - Continue home meds - Continue blood pressure monitor per protocol - Maintain SBP above 160 Disposition: [address] [employer] Final Discharge Diagnosis (Prints w/discharge instructions): Uncontrolled Type II Diabetes Mellitus with Hyperglycemia. #Hyperosmolar nonketotic coma. #Acute Metabolic Encephalopathy. #H/o Bipolar Disorder and Schizophrenia. #Acute kidney injury due to vasomotor nephropathy-resolved. #Hypernatremia--improved. #Hypokalemia- resolved. #Metabolic acidosis Time spent for discharge: 35 MINS Core Measure Documentation - Palliative Care Palliative Care/ Comfort Measures: Not Applicable - Core Measures Any of the following diagnoses?: none Exam - Physical Exam Narrative exam: VITAL SIGNS: Reviewed. GENERAL: The patient appears normally developed, AWAKE, FOLLOWING COMMANDS HEAD: No signs of head trauma. EYES: Pupils are equal. Extraocular motions intact. EARS: Hearing grossly intact. MOUTH: Oropharynx is normal. NECK: No adenopathy, no JVD. CHEST: Chest with clear breath sounds bilaterally. No wheezes, rales, or rhonchi. CARDIAC: Regular rate and rhythm. S1 and S2, without murmurs, gallops, or rubs. VASCULAR: No Edema. Peripheral pulses normal and equal in all extremities. ABDOMEN: Soft, non tender and non distended. No rebound or guarding, and no masses palpated. Bowel Sounds normal. MUSCULOSKELETAL: Good range of motion of all major joints. Extremities without clubbing, cyanosis or edema. NEUROLOGIC EXAM: Moves all extremities, following commands, no sensory or motor deficit noted. speech is normal PSYCHIATRIC: Mood sedated SKIN: detail exam as documented in skin assessment - Constitutional Vitals: Temp Pulse Resp BP Pulse Ox 97.8 F 89 18 111/66 99 06/12/22 23:38 06/13/22 08:56 06/13/22 08:56 06/13/22 08:56 06/13/22 08:56 Plan Activity: advance as tolerated, fall precautions Diet: diabetic Special Instructions: record daily weights, record daily BP diary, record blood sugar diary Follow up with: PRIMARY CARE, [Primary Care Provider] - 7 Days POLLO AYALA JR, MD [Staff Physician] - 7 Days JENNIFER KUMAR MD [Staff Physician] - 7 Days Prescriptions: Divalproex [[place]] 1,000 mg PO BID #120 tablet metFORMIN [Glucophage] 1,000 mg PO BID #120 tab FLUoxetine [PROzac] 20 mg PO QDAY #30 cap buPROPion XL [Wellbutrin XL] 150 mg PO QDAY #30 tablet
[2022-06-13] MEDS: buPROPion 75 MG TAB FEEDTUBE SCH (12:27)
[2022-06-13] MEDS: risperiDONE 1 MG TAB PO SCH (12:27)
[2022-06-13] MEDS: FLUoxetine 20 MG CAP PO SCH (12:27)
[2022-06-13 13:06] LABS: Heparin-Induced Platelet Antib Negative (Negative); Unfractionated Heparin Negative (Negative)
[2022-06-13] MEDS: INSULIN GLARGINE 100 UNITS/ML SUB-Q SCH (22:00)
[2022-06-14] MEDS: risperiDONE 1 MG TAB PO SCH ×2 (00:55→10:15)
[2022-06-14] MEDS: MELATONIN 5 MG TAB PO SCH (00:55)
[2022-06-14] MEDS: traZODone 50 MG TAB PO SCH (00:55)
[2022-06-14] MEDS: VALPROIC ACID 250 MG/5 ML ORAL LIQD FEEDTUBE SCH ×2 (00:55→10:13)
[2022-06-14] MEDS: PROPRANOLOL 10 MG TAB PO SCH ×2 (00:55→10:09)
[2022-06-14] MEDS: buPROPion 75 MG TAB FEEDTUBE SCH ×2 (00:56→10:12)
[2022-06-14] MEDS: INSULIN REGULAR, HUMAN 100 UNITS/1 ML SUB-Q SCH ×3 (07:34→18:34)
[2022-06-14] MEDS: FAMOTIDINE 20 MG TAB FEEDTUBE SCH (10:12)
[2022-06-14] MEDS: FLUoxetine 20 MG CAP PO SCH (10:12)
--- NOTE | 2022-06-14 10:14 | Progress Note ---
Assessment and Plan Assessment and plan: 57-year-old female with history of diabetes and bipolar disorder and schizophrenia was brought in from long-term admitted for DKA Hospital Course: 06/08: Patient remains confused and somnolent but protecting airway. GAP re- opened. Will need to continue insulin gtt. Sodium slowly downtrending, continue D5W + 40 MEQ K infusion. Strict monitoring of sodium so as to not overcorrect. BMP ordered q4hr. Once AG closed, can downgrade to medical floor. 06/09: Patient remain encephalopathic, only arousable to tactile stimuli. Stable on RA, able to protect her airway. UDS pending, mental health was also consulted. Patient also with hypernatremia, continue continue IVF and encourage PO intake. This am labs pending, if anion gap closed will transition to subQ insulin. Worsening thrombocytopenia this am, unclear etiology, no heparin/lovenox given this admit. Will consult hematology for further eval. 06/10: Patient remains lethargic, follow commands intermittently and refusing PO meds, however, accept juice and water. This is most likely secondary to psych issues and patient has not had any of her medication for over 48hrs. Mental health/spych consult pending. Patient transitioned to subQ insulin overnight, SSI adjusted. Will insert a DHT for meds and enteral nutrition. Worsen t hrombocytopenia, hematology recommendations noted. Pending CT abd/pelvis, will also add CT head/brain to r/o any intracranial abnormality. Royal placed overnight for urinary retention. Hypernatremia improved, agnes hold D5w gtt and continue to monitor electrolytes. 06/11: Patient remains somnolent. Psych team reviewed medications and made some adjustment. I did discuss with the primary care physician at the [facility] the unable to manage the patient requiring NG tube at this time for nutritional status. Considering her condition of diabetes and hyperglycemia we will wanted to be more awake prior to discharge back to the facility. This is likely secondary to her bipolar disorder psych input is appreciated. Platelets appear to be improving imaging studies as documented above did not show any acute pathology. Mildly elevated LFTs we will recheck again in a.m. anticipate discharge in 24 to 48 hours 06/12: Patient seen and examined ammonia level checked actually low. Blood sugar is stable she remains obtunded. We will continue to monitor additional 24 hours of updated primary physician at the [facility]. Avoid all sedatives at this time. She continues to maintain her airway. Continue aspiration precautions 06/13: Patient still obtunded lethargic although moving around more. I had a significant conversation with the physician at the long-term who recommends to consider an LTAC is being unable to manage the patient at the [facility]. Consult has been placed. We will start some gentle hydration as patient's urine appears concentrated. Reduce Insulin dose at this time. Remarkable, she woke up later today and asked for food, she is pleasant, AAO X 3 and conversational. Will discontinue the LTAC request and discharge patient back with Law enforcement. Counselling provided. Outpatient Psych recommended 06/14: Patient has been discharged and is medically stable for discharge however her charges were dropped by [facility] no other information of family is available. She is unsafe to be discharged home by herself but states she is homeless per information obtained from the long-term. She is still very impulsive. We will request a reevaluation by psych to see if she meets for inpatient the [facility] psych. Assessment and Plan #Uncontrolled Type II Diabetes Mellitus with Hyperglycemia #Hyperosmolar nonketotic coma - [id number] - s/p DKA protocol - Transitioned to subQ insulin overnight - Hyperglycemic this am, SSI adjusted - Patient refusing PO intake, plan for DHT inserting for meds and feeding - Monitor and replace electrolytes as needed - Monitor anion gap, serial Labs ordered - Nutrition consulted #Acute Metabolic Encephalopathy #H/o Bipolar Disorder and Schizophrenia - etiology likely HHS and severe hypernatremia - S/p DKA protocol, UDS pending - UA only demonstrates +2 glucose, consistent with diagnosis - CT head/brain pending - Encourage PO intake, Continue to trend Na - Home meds resumed - Avoid benzodiazepine to reduce the possibility of delirium - PRN Analgesia for pain control - Maintenance of sleep-wake cycle - Mental health consulted #Acute kidney injury due to vasomotor nephropathy-resolved #Hypernatremia--improved #Hypokalemia- resolved #Metabolic acidosis - Most likely due to DKA - Na: 167 on admission - renal function normalized - Remains on insulin gtt and IVF resuscitation per DKA protocol - Strict intake and output - Avoid nephrotoxic medications; Renally dose medications - Royal in place - Monitor and replace electrolytes as needed #SIRS with Organ Dysfunction (POA)- Resolved - Presented with tachypnea, leukocytosis, metabolic acidosis, and Scr of 2.1 - Most likely due to DKA - s/p DKA protocol. Scr. improved post IVF resuscitation - Remains afebrile, symptoms improved, and VSS - Will continue to monitor #Thrombocytopenia #Polycythemia #Hemoconcentration - Presented with high hgb/hct and normal plt - Dropped in plt this am, unclear etiology - No heparin/Lovenox administered since admit - H&H stable, no s/s of any active bleeding - Hematology Consulted, appreciated - CT abd/pelvsi pending - Hold off AC at this time - Transfuse for hgb less than 7 #Urinary Retention - Bladder scan over 1L retention, royal placed - Kepp royal for now, reassess per protocol #Essential hypertension - BP stable - Continue home meds - Continue blood pressure monitor per protocol - Maintain SBP above 160 Disposition: [address]W E[employer] Final Discharge Diagnosis (Prints w/discharge instructions): Uncontrolled Type II Diabetes Mellitus with Hyperglycemia. #Hyperosmolar nonketotic coma. #Acute Metabolic Encephalopathy. #H/o Bipolar Disorder and Schizophrenia. #Acute kidney injury due to vasomotor nephropathy-resolved. #Hypernatremia--improved. #Hypokalemia- resolved. #Metabolic acidosis History Interval history: Patient seen and examined remains this morning again was somnolent although answer some names. Overnight was very aggressive with the nursing staff. Hospitalist Physical - Physical exam Narrative exam: VITAL SIGNS: Reviewed. GENERAL: The patient appears normally developed, AWAKE, FOLLOWING COMMANDS HEAD: No signs of head trauma. EYES: Pupils are equal. Extraocular motions intact. EARS: Hearing grossly intact. MOUTH: Oropharynx is normal. NECK: No adenopathy, no JVD. CHEST: Chest with clear breath sounds bilaterally. No wheezes, rales, or rhonchi. CARDIAC: Regular rate and rhythm. S1 and S2, without murmurs, gallops, or rubs. VASCULAR: No Edema. Peripheral pulses normal and equal in all extremities. ABDOMEN: Soft, non tender and non distended. No rebound or guarding, and no masses palpated. Bowel Sounds normal. MUSCULOSKELETAL: Good range of motion of all major joints. Extremities without clubbing, cyanosis or edema. NEUROLOGIC EXAM: Moves all extremities, following commands, no sensory or motor deficit noted. speech is normal PSYCHIATRIC: Mood sedated SKIN: detail exam as documented in skin assessment - Constitutional Vitals: Temp Pulse Resp BP Pulse Ox 98.2 F 71 18 92/56 97 06/14/22 08:08 06/14/22 08:05 06/14/22 08:08 06/14/22 08:05 06/14/22 10:00 General appearance: Present: no acute distress, well-nourished, obese Results - Labs CBC & Chem 7: 06/12/22 04:53 06/12/22 04:53 Labs: Laboratory Last Values WBC 5.0 K/mm3 (4.5-11.0) 06/12/22 04:53 RBC 4.62 M/mm3 (3.65-5.03) 06/12/22 04:53 Hgb 14.1 gm/dl (10.1-14.3) 06/12/22 04:53 Hct 41.7 % (30.3-42.9) 06/12/22 04:53 MCV 90 fl (79-97) 06/12/22 04:53 MCH 31 pg (28-32) 06/12/22 04:53 MCHC 34 % (30-34) 06/12/22 04:53 RDW 13.9 % (13.2-15.2) 06/12/22 04:53 Plt Count 55 K/mm3 (140-440) L 06/12/22 04:53 Lymph % (Auto) 11.1 % (13.4-35.0) L 06/08/22 03:51 Mckinley % (Auto) 5.7 % (0.0-7.3) 06/08/22 03:51 Eos % (Auto) 0.7 % (0.0-4.3) 06/08/22 03:51 Baso % (Auto) 0.2 % (0.0-1.8) 06/08/22 03:51 Lymph # (Auto) 1.2 K/mm3 (1.2-5.4) 06/08/22 03:51 Mckinley # (Auto) 0.6 K/mm3 (0.0-0.8) 06/08/22 03:51 Eos # (Auto) 0.1 K/mm3 (0.0-0.4) 06/08/22 03:51 Baso # (Auto) 0.0 K/mm3 (0.0-0.1) 06/08/22 03:51 Seg Neutrophils % 82.3 % (40.0-70.0) H 06/08/22 03:51 Seg Neutrophils # 8.7 K/mm3 (1.8-7.7) H 06/08/22 03:51 Fibrinogen 423 mg/dl (211-480) 06/10/22 04:30 Heparin Anti-Xa, Unfract Negative (Negative) 06/10/22 04:30 VBG pH 7.348 (7.320-7.420) 06/07/22 01:47 Sodium 144 mmol/L (137-145) 06/12/22 04:53 Potassium 4.2 mmol/L (3.6-5.0) 06/12/22 04:53 Chloride 107.7 mmol/L (98-107) H 06/12/22 04:53 Carbon Dioxide 28 mmol/L (22-30) 06/12/22 04:53 Anion Gap 13 mmol/L 06/12/22 04:53 BUN 13 mg/dL (7-17) 06/12/22 04:53 Creatinine 0.6 mg/dL (0.6-1.2) 06/12/22 04:53 Estimated GFR > 60 ml/min 06/12/22 04:53 BUN/Creatinine Ratio 22 % 06/12/22 04:53 Glucose 133 mg/dL (65-100) H 06/12/22 04:53 POC Glucose 188 mg/dL (70-105) H 06/13/22 20:33 Calcium 8.6 mg/dL (8.4-10.2) 06/12/22 04:53 Phosphorus 2.70 mg/dL (2.5-4.5) 06/11/22 03:40 Magnesium 2.00 mg/dL (1.7-2.3) 06/11/22 03:40 Iron 89 ug/dL (37-170) 06/10/22 04:30 TIBC 122 mcg/dL (250-450) L 06/10/22 04:30 Ferritin 230.8 ng/mL (10.0-200.0) H 06/10/22 04:30 Total Bilirubin 0.70 mg/dL (0.1-1.2) 06/12/22 04:53 AST 71 units/L (5-40) H 06/12/22 04:53 ALT 120 units/L (7-56) H 06/12/22 04:53 Alkaline Phosphatase 93 units/L (35-129) 06/12/22 04:53 Ammonia < 10.0 umol/L (25-60) L 06/12/22 07:27 Total Protein 4.9 g/dL (6.3-8.2) L 06/12/22 04:53 Albumin 3.1 g/dL (3.9-5) L 06/12/22 04:53 Albumin/Globulin Ratio 1.7 % 06/12/22 04:53 Urine Color [place] (Yellow) 06/07/22 Unknown Urine Turbidity Clear (Clear) 06/07/22 Unknown Urine pH 5.0 (5.0-7.0) 06/07/22 Unknown Ur Specific [place] 1.015 (1.003-1.030) 06/07/22 Unknown Urine Protein 30 mg/dl mg/dL (Negative) 06/07/22 Unknown Urine Glucose (UA) 2+ mg/dL (Negative) 06/07/22 Unknown Urine Ketones Negative mg/dL (Negative) 06/07/22 Unknown Urine Blood Negative (Negative) 06/07/22 Unknown Urine Nitrite Negative (Negative) 06/07/22 Unknown Urine Bilirubin 4+ (Negative) 06/07/22 Unknown Urine Ictotest Negative (Negative) 06/07/22 Unknown Urine Urobilinogen 0.0 mg/dL (<2.0) 06/07/22 Unknown Ur Leukocyte Esterase 1+ (Negative) 06/07/22 Unknown Urine WBC (Auto) 5.0 /HPF (0.0-6.0) 06/07/22 Unknown Urine RBC (Auto) < 1.0 /HPF (0.0-6.0) 06/07/22 Unknown Hyaline Casts 66 /LPF 06/07/22 Unknown Urine Mucus Few /HPF 06/07/22 Unknown Heparin-induced Plt Ab Negative (Negative) 06/10/22 04:30 UF Heparin High Dose 1 % Release 06/10/22 04:30 TONY UFH Low Dose 0.1 0 % Release 06/10/22 04:30 TONY UFH Low Dose 0.5 0 % Release 06/10/22 04:30 Royal/IV: Voiding Method Indwelling Catheter Active Medications - Current Medications Current Medications: Generic Name Dose Route Start Last Admin Trade Name Freq PRN Reason Stop Dose Admin Acetaminophen 650 mg 06/07/22 04:36 Acetaminophen 325 Mg Tab PO Q4H PRN Pain MILD(1-3)/Fever >100.5/WHALEY Albuterol 2.5 mg 06/07/22 04:36 Albuterol 2.5 Mg/3 Ml Nebu IH Q3HRT PRN Shortness Of Breath Bupropion HCl 75 mg 06/11/22 10:00 06/14/22 00:56 Bupropion 75 Mg Tab FEEDTUBE Not Given BID DAGMAR Dextrose 50 ml 06/09/22 18:02 Dextrose 50% In Water (25gm) 50 Ml Syringe IV Q30MIN PRN Hypoglycemia Protocol Famotidine 20 mg 06/11/22 10:00 06/13/22 10:16 Famotidine 20 Mg Tab FEEDTUBE 20 mg DAILY DAGMAR Administration Fluoxetine HCl 20 mg 06/07/22 10:00 06/13/22 12:27 Fluoxetine 20 Mg Cap PO Not Given QDAY [facility] Sodium Chloride 1,000 mls @ 75 mls/hr 06/13/22 09:15 Nacl 0.9% 1000 Ml IV DIRECT [facility] Insulin Glargine 12 units 06/13/22 22:00 06/13/22 22:00 Insulin Glargine 100 Units/Ml SUB-Q Not Given QHS [facility] Insulin Human Regular 0 units 06/11/22 12:00 06/14/22 07:34 Insulin Regular, Human 100 Units/1 Ml SUB-Q Not Given Q6HR [facility] Protocol Melatonin 10 mg 06/07/22 22:00 06/14/22 00:55 Melatonin 5 Mg Tab PO Not Given QHS [facility] Olanzapine 2.5 mg 06/11/22 22:00 06/14/22 00:56 Olanzapine 2.5 Mg Tab PO Not Given QHS [facility] Ondansetron HCl 4 mg 06/07/22 04:36 06/08/22 05:40 Ondansetron 4 Mg/2 Ml Inj IV 4 mg Q8H PRN Administration Nausea And Vomiting Propranolol HCl 10 mg 06/07/22 10:00 06/14/22 10:09 Propranolol 10 Mg Tab PO Not Given BID DAGMAR Risperidone 2 mg 06/07/22 10:00 06/14/22 00:55 Risperidone 1 Mg Tab PO Not Given BID DAGMAR Sodium Chloride 10 ml 06/07/22 10:00 06/14/22 00:56 Sodium Chloride 0.9% 10 Ml Flush Syringe IV Not Given BID DAGMAR Sodium Chloride 10 ml 06/07/22 04:36 Sodium Chloride 0.9% 10 Ml Flush Syringe IV PRN PRN LINE FLUSH Trazodone HCl 150 mg 06/07/22 22:00 06/14/22 00:55 Trazodone 50 Mg Tab PO Not Given QHS DAGMAR Valproic Acid 1,000 mg 06/11/22 10:00 06/14/22 00:55 Valproic Acid 250 Mg/5 Ml Oral Liqd FEEDTUBE Not Given BID [facility] Nutrition/Malnutrition Assess - Dietary Evaluation Nutrition/Malnutrition Findings: Nutrition Notes Start: 06/07/22 09:29 Freq: Status: Active Protocol: Document 06/12/22 12:13 CLIF (Rec: 06/12/22 12:17 [id number] Nutrition Notes Initial or Follow up Reassessment Current Diagnosis Diabetes,Hypertension Other Pertinent Diagnosis s/p DKA, metabolic encephalopathy, bipolar d/o, schizophrenia Current Diet Glucerna 1.2 at 60ml/hr Labs/Tests Reviewed Pertinent Medications Reviewed Height 5 ft 6 in Weight 80.2 kg [place] Body Weight (kg) 59.09 BMI 28.5 Weight Status Overweight Subjective/Other Information Pt pulled DHT out and refuses to have it re-inserted; also refusing PO intake. Burn Absent Trauma Absent #2 Nutrition Diagnosis Inadequate oral intake Diagnosis Progress(for reassessment Continues documentation) #1 Nutrition Diagnosis Altered nutrition-related laboratory values As Evidenced by Signs and Symptoms POC Glu labs improving Diagnosis Progress(for reassessment Improved documentation) Is patient on ventilator? No Is Patient Ambulatory and/or Out of Bed No [facility] 5987.204 Calculation Used for Recommendations [facility] Additional Notes Pro needs 0.8-1g/k-80g/ day Fluid needs 1ml/kcal Nutrition Intervention Change Diet Order: Resume PO diet when feasible Goal #1 Resume either PO diet or EN support to meet nutrient needs Follow-Up By: 06/16/22 Additional Comments F/U: PO intake vs re-start of EN support
--- NOTE | 2022-06-14 11:07 | Consultation ---
History of Present Illness - Reason for Consult Consult date: 06/14/22 Reason for consult: mental health evaluation - History of Present Psychiatric Illness 57-year-old female with history of diabetes, bipolar disorder and schizophrenia was brought in from retirement by EMS for high blood sugar in the 500s. Psych consult placed for mental health evaluation. The patient seen today. She is calm, alert and withdrawn. She reports doing well. When asked about her psychiatric diagnoses she states " I don't have any, I'm fine." She denies being depressed or excessively anxious. She reports having estranged family members in [facility]. The patient denies any current suicidal/homicidal ideation and denies hallucinations. PAST PSYCHIATRIC HISTORY: Diagnoses: bipolar disorder and schizophrenia Suicide attempts or Self-harm behavior: Denies Prior psychiatric hospitalizations: Yes Substance Abuse history: Denies Previous psychiatric medications tried: Outpatient treatment: Unknown PAST MEDICAL HISTORY: None reported Family Psychiatric History: None reported or documented SOCIAL HISTORY Marital Status:Single Living Arrangements: Homeless Employment Status: employed Access to guns/weapons: Denies Education:College History of Abuse:Denies Legal History: Denies REVIEW OF SYSTEMS Constitutional: Negative for weight loss ENT: Negative for stridor Respiratory: Negative for cough or hemoptysis All other systems reviewed and are negative MENTAL STATUS EXAMINATION General Appearance and Behavior: Age appropriate, good hygiene, wearing appropriate clothes. calm, cooperative Cooperation: Cooperative Psychomotor Behavior: Psychomotor normal Mood: withdrawn Affect and affective range: constricted Thought Process: Goal directed Thought Content:Reality oriented Speech: Normal tone and pace Suicidal Ideation: Denies Homicidal Ideation: Denies Hallucinations:Denies Delusions: None Impulse Control: normal Insight and Judgment: limited insight and judgment Memory: Limited Attention: attentive Orientation: a/o Assessment (1)Hx Bipolar disorder Treatment Plan Case management Continue home medication Medical: per primary Sitter: defer to primary Disposition: Do not recommend acute psychiatric inpatient treatment. Community Health Coordinator will provide patient with psychiatric outpatient resources. Will sign off. Thanks Case staffed with Dr. Miranda Medications and Allergies Medications and Allergies Allergies Allergy/AdvReac Type Severity Reaction Status Date / Time Penicillins Allergy Unknown Verified 06/07/22 01:29 potassium Allergy Unknown Verified 06/07/22 01:29 Home Medications Medication Instructions Recorded Confirmed Last Taken Type propranoloL [Inderal] 10 mg PO BID 05/01/22 06/10/22 Unknown History Melatonin [Melatonin 5MG TAB] 10 mg PO QHS #60 tablet 05/12/22 06/10/22 Unknown Rx OLANzapine [ZyPREXA] 2.5 mg PO QDAY #30 tablet 05/12/22 06/10/22 Unknown Rx risperiDONE [RisperDAL] 2 mg PO BID #60 05/12/22 06/10/22 Unknown Rx traZODone [Desyrel] 150 mg PO QHS #90 tablet 05/12/22 06/10/[address] [Depakote Dr] 1,000 mg PO BID #120 tablet 06/13/22 Unknown Rx FLUoxetine [PROzac] 20 mg PO QDAY #30 cap 06/13/22 Unknown Rx buPROPion XL [Wellbutrin XL] 150 mg PO QDAY #30 tablet 06/13/22 Unknown Rx metFORMIN [Glucophage] 1,000 mg PO BID #120 tab 06/13/22 Unknown Rx Active Meds: Active Medications Acetaminophen (Acetaminophen 325 Mg Tab) 650 mg PO Q4H PRN PRN Reason: Pain MILD(1-3)/Fever >100.5/WHALEY Albuterol (Albuterol 2.5 Mg/3 Ml Nebu) 2.5 mg IH Q3HRT PRN PRN Reason: Shortness Of Breath Bupropion HCl (Bupropion 75 Mg Tab) 75 mg FEEDTUBE BID [facility] Last Admin: 06/14/22 10:12 Dose: 75 mg Dextrose (Dextrose 50% In Water (25gm) 50 Ml Syringe) 50 ml IV Q30MIN PRN; Protocol PRN Reason: Hypoglycemia Famotidine (Famotidine 20 Mg Tab) 20 mg FEEDTUBE DAILY [facility] Last Admin: 06/14/22 10:12 Dose: 20 mg Fluoxetine HCl (Fluoxetine 20 Mg Cap) 20 mg PO QDAY DAGMAR Last Admin: 06/14/22 10:12 Dose: 20 mg Sodium Chloride (Nacl 0.9% 1000 Ml) 1,000 mls @ 75 mls/hr IV DIRECT [facility] Insulin Glargine (Insulin Glargine 100 Units/Ml) 12 units SUB-Q QHS [facility] Last Admin: 06/13/22 22:00 Dose: Not Given Insulin Human Regular (Insulin Regular, Human 100 Units/1 Ml) 0 units SUB-Q Q6HR DAGMAR; Protocol Last Admin: 06/14/22 07:34 Dose: Not Given Melatonin (Melatonin 5 Mg Tab) 10 mg PO QHS [facility] Last Admin: 06/14/22 00:55 Dose: Not Given Olanzapine (Olanzapine 2.5 Mg Tab) 2.5 mg PO QHS [facility] Last Admin: 06/14/22 00:56 Dose: Not Given Ondansetron HCl (Ondansetron 4 Mg/2 Ml Inj) 4 mg IV Q8H PRN PRN Reason: Nausea And Vomiting Last Admin: 06/08/22 05:40 Dose: 4 mg Propranolol HCl (Propranolol 10 Mg Tab) 10 mg PO BID [facility] Last Admin: 06/14/22 10:09 Dose: Not Given Risperidone (Risperidone 1 Mg Tab) 2 mg PO BID [facility] Last Admin: 06/14/22 10:15 Dose: 2 mg Sodium Chloride (Sodium Chloride 0.9% 10 Ml Flush Syringe) 10 ml IV BID [facility] Last Admin: 06/14/22 10:15 Dose: Not Given Sodium Chloride (Sodium Chloride 0.9% 10 Ml Flush Syringe) 10 ml IV PRN PRN PRN Reason: LINE FLUSH Trazodone HCl (Trazodone 50 Mg Tab) 150 mg PO QHS [facility] Last Admin: 06/14/22 00:55 Dose: Not Given Valproic Acid (Valproic Acid 250 Mg/5 Ml Oral Liqd) 1,000 mg FEEDTUBE BID [facility] Last Admin: 06/14/22 10:13 Dose: 1,000 mg Mental Status Exam - Vital signs Last Vital Signs Temp 98.2 F 06/14/22 08:08 Pulse 86 06/14/22 10:00 Resp 18 06/14/22 08:08 BP 92/56 06/14/22 08:05 Pulse Ox 97 06/14/22 10:00 Results Result Diagrams: 06/12/22 04:53 06/12/22 04:53 Abnormal lab results 06/13/22 06/13/22 06/13/22 Range/Units 11:51 16:04 20:33 POC Glucose 125 H 185 H 188 H (70-105) mg/dL All other labs normal.
[2022-06-15] MEDS: traZODone 50 MG TAB PO SCH ×3 (00:10→23:06)
[2022-06-15] MEDS: VALPROIC ACID 250 MG/5 ML ORAL LIQD FEEDTUBE SCH ×2 (00:11→00:35)
[2022-06-15] MEDS: INSULIN GLARGINE 100 UNITS/ML SUB-Q SCH ×2 (00:12→23:22)
[2022-06-15] MEDS: INSULIN REGULAR, HUMAN 100 UNITS/1 ML SUB-Q SCH ×5 (00:13→23:22)
[2022-06-15] MEDS: MELATONIN 5 MG TAB PO SCH ×2 (00:15→23:08)
[2022-06-15] MEDS: PROPRANOLOL 10 MG TAB PO SCH ×3 (00:24→23:30)
[2022-06-15] MEDS: risperiDONE 1 MG TAB PO SCH ×3 (00:26→23:07)
[2022-06-15] MEDS: buPROPion 75 MG TAB FEEDTUBE SCH (00:27)
[2022-06-15] MEDS ORDERED: FAMOTIDINE 20 MG TAB PO SCH (10:00)
[2022-06-15] MEDS ORDERED: buPROPion XL 150 MG TAB PO SCH (10:00)
[2022-06-15] MEDS: DIVALPROEX DR 500 MG TAB PO SCH ×2 (12:00→23:07)
[2022-06-15] MEDS: FLUoxetine 20 MG CAP PO SCH (12:00)
--- NOTE | 2022-06-15 14:46 | Progress Note ---
Assessment and Plan Assessment and plan: 57-year-old female with history of diabetes and bipolar disorder and schizophrenia was brought in from longterm admitted for DKA Hospital Course: 06/08: Patient remains confused and somnolent but protecting airway. GAP re- opened. Will need to continue insulin gtt. Sodium slowly downtrending, continue D5W + 40 MEQ K infusion. Strict monitoring of sodium so as to not overcorrect. BMP ordered q4hr. Once AG closed, can downgrade to medical floor. 06/09: Patient remain encephalopathic, only arousable to tactile stimuli. Stable on RA, able to protect her airway. UDS pending, mental health was also consulted. Patient also with hypernatremia, continue continue IVF and encourage PO intake. This am labs pending, if anion gap closed will transition to subQ insulin. Worsening thrombocytopenia this am, unclear etiology, no heparin/lovenox given this admit. Will consult hematology for further eval. 06/10: Patient remains lethargic, follow commands intermittently and refusing PO meds, however, accept juice and water. This is most likely secondary to psych issues and patient has not had any of her medication for over 48hrs. Mental health/spych consult pending. Patient transitioned to subQ insulin overnight, SSI adjusted. Will insert a DHT for meds and enteral nutrition. Worsen t hrombocytopenia, hematology recommendations noted. Pending CT abd/pelvis, will also add CT head/brain to r/o any intracranial abnormality. Royal placed overnight for urinary retention. Hypernatremia improved, agnes hold D5w gtt and continue to monitor electrolytes. 06/11: Patient remains somnolent. Psych team reviewed medications and made some adjustment. I did discuss with the primary care physician at the [facility] the unable to manage the patient requiring NG tube at this time for nutritional status. Considering her condition of diabetes and hyperglycemia we will wanted to be more awake prior to discharge back to the facility. This is likely secondary to her bipolar disorder psych input is appreciated. Platelets appear to be improving imaging studies as documented above did not show any acute pathology. Mildly elevated LFTs we will recheck again in a.m. anticipate discharge in 24 to 48 hours 06/12: Patient seen and examined ammonia level checked actually low. Blood sugar is stable she remains obtunded. We will continue to monitor additional 24 hours of updated primary physician at the [facility]. Avoid all sedatives at this time. She continues to maintain her airway. Continue aspiration precautions 06/13: Patient still obtunded lethargic although moving around more. I had a significant conversation with the physician at the longterm who recommends to consider an LTAC is being unable to manage the patient at the [facility]. Consult has been placed. We will start some gentle hydration as patient's urine appears concentrated. Reduce Insulin dose at this time. Remarkable, she woke up later today and asked for food, she is pleasant, AAO X 3 and conversational. Will discontinue the LTAC request and discharge patient back with Law enforcement. Counselling provided. Outpatient Psych recommended 06/14: Patient has been discharged and is medically stable for discharge however her charges were dropped by [facility] no other information of family i s available. She is unsafe to be discharged home by herself but states she is homeless per information obtained from the longterm. She is still very impulsive. We will request a reevaluation by psych to see if she meets for inpatient the [facility] psych. 06/15: Patient seen and examined no acute distress, awaiting placement and my understanding is that the by [facility] has a warrant and will be picking her up tomorrow if she remains in house. She has been advised. Assessment and Plan #Uncontrolled Type II Diabetes Mellitus with Hyperglycemia #Hyperosmolar nonketotic coma - [id number] - s/p DKA protocol - Transitioned to subQ insulin overnight - Hyperglycemic this am, SSI adjusted - Patient refusing PO intake, plan for DHT inserting for meds and feeding - Monitor and replace electrolytes as needed - Monitor anion gap, serial Labs ordered - Nutrition consulted #Acute Metabolic Encephalopathy #H/o Bipolar Disorder and Schizophrenia - etiology likely HHS and severe hypernatremia - S/p DKA protocol, UDS pending - UA only demonstrates +2 glucose, consistent with diagnosis - CT head/brain pending - Encourage PO intake, Continue to trend Na - Home meds resumed - Avoid benzodiazepine to reduce the possibility of delirium - PRN Analgesia for pain control - Maintenance of sleep-wake cycle - Mental health consulted #Acute kidney injury due to vasomotor nephropathy-resolved #Hypernatremia--improved #Hypokalemia- resolved #Metabolic acidosis - Most likely due to DKA - Na: 167 on admission - renal function normalized - Remains on insulin gtt and IVF resuscitation per DKA protocol - Strict intake and output - Avoid nephrotoxic medications; Renally dose medications - Royal in place - Monitor and replace electrolytes as needed #SIRS with Organ Dysfunction (POA)- Resolved - Presented with tachypnea, leukocytosis, metabolic acidosis, and Scr of 2.1 - Most likely due to DKA - s/p DKA protocol. Scr. improved post IVF resuscitation - Remains afebrile, symptoms improved, and VSS - Will continue to monitor #Thrombocytopenia #Polycythemia #Hemoconcentration - Presented with high hgb/hct and normal plt - Dropped in plt this am, unclear etiology - No heparin/Lovenox administered since admit - H&H stable, no s/s of any active bleeding - Hematology Consulted, appreciated - CT abd/pelvsi pending - Hold off AC at this time - Transfuse for hgb less than 7 #Urinary Retention - Bladder scan over 1L retention, royal placed - Kesimta royal for now, reassess per protocol #Essential hypertension - BP stable - Continue home meds - Continue blood pressure monitor per protocol - Maintain SBP above 160 Disposition: [address] [employer] Final Discharge Diagnosis (Prints w/discharge instructions): Uncontrolled Type II Diabetes Mellitus with Hyperglycemia. #Hyperosmolar nonketotic coma. #Acute Metabolic Encephalopathy. #H/o Bipolar Disorder and Schizophrenia. #Acute kidney injury due to vasomotor nephropathy-resolved. #Hypernatremia--improved. #Hypokalemia- resolved. #Metabolic acidosis History Interval history: Patient seen and examined remains this morning again was somnolent although answer some Questions, woke up and ate her food. Hospitalist Physical - Physical exam Narrative exam: VITAL SIGNS: Reviewed. GENERAL: The patient appears normally developed, Awake and no acute distress. HEAD: No signs of head trauma. EYES: Pupils are equal. Extraocular motions intact. EARS: Hearing grossly intact. MOUTH: Oropharynx is normal. NECK: No adenopathy, no JVD. CHEST: Chest with clear breath sounds bilaterally. No wheezes, rales, or rhonchi. CARDIAC: Regular rate and rhythm. S1 and S2, without murmurs, gallops, or rubs. VASCULAR: No Edema. Peripheral pulses normal and equal in all extremities. ABDOMEN: Soft, non tender and non distended. No rebound or guarding, and no masses palpated. Bowel Sounds normal. MUSCULOSKELETAL: Good range of motion of all major joints. Extremities without clubbing, cyanosis or edema. NEUROLOGIC EXAM: Moves all extremities, following commands, no sensory or motor deficit noted. speech is normal PSYCHIATRIC: Mood sedated SKIN: detail exam as documented in skin assessment - Constitutional Vitals: Temp Pulse Resp BP Pulse Ox 97.9 F 97 H 18 101/58 97 06/15/22 11:40 06/15/22 11:40 06/15/22 11:40 06/15/22 11:40 06/15/22 12:42 General appearance: Present: no acute distress, well-nourished, obese Results - Labs CBC & Chem 7: 06/12/22 04:53 06/12/22 04:53 Labs: Laboratory Last Values WBC 5.0 K/mm3 (4.5-11.0) 06/12/22 04:53 RBC 4.62 M/mm3 (3.65-5.03) 06/12/22 04:53 Hgb 14.1 gm/dl (10.1-14.3) 06/12/22 04:53 Hct 41.7 % (30.3-42.9) 06/12/22 04:53 MCV 90 fl (79-97) 06/12/22 04:53 MCH 31 pg (28-32) 06/12/22 04:53 MCHC 34 % (30-34) 06/12/22 04:53 RDW 13.9 % (13.2-15.2) 06/12/22 04:53 Plt Count 55 K/mm3 (140-440) L 06/12/22 04:53 Lymph % (Auto) 11.1 % (13.4-35.0) L 06/08/22 03:51 [place] % (Auto) 5.7 % (0.0-7.3) 06/08/22 03:51 Eos % (Auto) 0.7 % (0.0-4.3) 06/08/22 03:51 Baso % (Auto) 0.2 % (0.0-1.8) 06/08/22 03:51 Lymph # (Auto) 1.2 K/mm3 (1.2-5.4) 06/08/22 03:51 [place] # (Auto) 0.6 K/mm3 (0.0-0.8) 06/08/22 03:51 Eos # (Auto) 0.1 K/mm3 (0.0-0.4) 06/08/22 03:51 Baso # (Auto) 0.0 K/mm3 (0.0-0.1) 06/08/22 03:51 Seg Neutrophils % 82.3 % (40.0-70.0) H 06/08/22 03:51 Seg Neutrophils # 8.7 K/mm3 (1.8-7.7) H 06/08/22 03:51 Fibrinogen 423 mg/dl (211-480) 06/10/22 04:30 Heparin Anti-Xa, Unfract Negative (Negative) 06/10/22 04:30 VBG pH 7.348 (7.320-7.420) 06/07/22 01:47 Sodium 144 mmol/L (137-145) 06/12/22 04:53 Potassium 4.2 mmol/L (3.6-5.0) 06/12/22 04:53 Chloride 107.7 mmol/L (98-107) H 06/12/22 04:53 Carbon Dioxide 28 mmol/L (22-30) 06/12/22 04:53 Anion Gap 13 mmol/L 06/12/22 04:53 BUN 13 mg/dL (7-17) 06/12/22 04:53 Creatinine 0.6 mg/dL (0.6-1.2) 06/12/22 04:53 Estimated GFR > 60 ml/min 06/12/22 04:53 BUN/Creatinine Ratio 22 % 06/12/22 04:53 Glucose 133 mg/dL (65-100) H 06/12/22 04:53 POC Glucose 178 mg/dL (70-105) H 06/15/22 07:52 Calcium 8.6 mg/dL (8.4-10.2) 06/12/22 04:53 Phosphorus 2.70 mg/dL (2.5-4.5) 06/11/22 03:40 Magnesium 2.00 mg/dL (1.7-2.3) 06/11/22 03:40 Iron 89 ug/dL (37-170) 06/10/22 04:30 TIBC 122 mcg/dL (250-450) L 06/10/22 04:30 Ferritin 230.8 ng/mL (10.0-200.0) H 06/10/22 04:30 Total Bilirubin 0.70 mg/dL (0.1-1.2) 06/12/22 04:53 AST 71 units/L (5-40) H 06/12/22 04:53 ALT 120 units/L (7-56) H 06/12/22 04:53 Alkaline Phosphatase 93 units/L (35-129) 06/12/22 04:53 Ammonia < 10.0 umol/L (25-60) L 06/12/22 07:27 Total Protein 4.9 g/dL (6.3-8.2) L 06/12/22 04:53 Albumin 3.1 g/dL (3.9-5) L 06/12/22 04:53 Albumin/Globulin Ratio 1.7 % 06/12/22 04:53 Urine Color [place] (Yellow) 06/07/22 Unknown Urine Turbidity Clear (Clear) 06/07/22 Unknown Urine pH 5.0 (5.0-7.0) 06/07/22 Unknown Ur Specific [place] 1.015 (1.003-1.030) 06/07/22 Unknown Urine Protein 30 mg/dl mg/dL (Negative) 06/07/22 Unknown Urine Glucose (UA) 2+ mg/dL (Negative) 06/07/22 Unknown Urine Ketones Negative mg/dL (Negative) 06/07/22 Unknown Urine Blood Negative (Negative) 06/07/22 Unknown Urine Nitrite Negative (Negative) 06/07/22 Unknown Urine Bilirubin 4+ (Negative) 06/07/22 Unknown Urine Ictotest Negative (Negative) 06/07/22 Unknown Urine Urobilinogen 0.0 mg/dL (<2.0) 06/07/22 Unknown Ur Leukocyte Esterase 1+ (Negative) 06/07/22 Unknown Urine WBC (Auto) 5.0 /HPF (0.0-6.0) 06/07/22 Unknown Urine RBC (Auto) < 1.0 /HPF (0.0-6.0) 06/07/22 Unknown Hyaline Casts 66 /LPF 06/07/22 Unknown Urine Mucus Few /HPF 06/07/22 Unknown Heparin-induced Plt Ab Negative (Negative) 06/10/22 04:30 UF Heparin High Dose 1 % Release 06/10/22 04:30 TONY UFH Low Dose 0.1 0 % Release 06/10/22 04:30 TONY UFH Low Dose 0.5 0 % Release 06/10/22 04:30 Royal/IV: Voiding Method Bedpan Active Medications - Current Medications Current Medications: Generic Name Dose Route Start Last Admin Trade Name Freq PRN Reason Stop Dose Admin Acetaminophen 650 mg 06/07/22 04:36 Acetaminophen 325 Mg Tab PO Q4H PRN Pain MILD(1-3)/Fever >100.5/WHALEY Albuterol 2.5 mg 06/07/22 04:36 Albuterol 2.5 Mg/3 Ml Nebu IH Q3HRT PRN Shortness Of Breath Bupropion HCl 150 mg 06/15/22 10:00 Bupropion Xl 150 Mg Tab PO QDAY DAGMAR Dextrose 50 ml 06/09/22 18:02 Dextrose 50% In Water (25gm) 50 Ml Syringe IV Q30MIN PRN Hypoglycemia Protocol Divalproex Sodium 1,000 mg 06/15/22 10:[address] 500 Mg Tab PO BID DAGMAR Famotidine 20 mg 06/15/22 10:00 Famotidine 20 Mg Tab PO DAILY DAGMAR Fluoxetine HCl 20 mg 06/07/22 10:00 06/14/22 10:12 Fluoxetine 20 Mg Cap PO 20 mg QDAY DAGMAR Administration Sodium Chloride 1,000 mls @ 75 mls/hr 06/13/22 09:15 Nacl 0.9% 1000 Ml IV DIRECT DAGMAR Insulin Glargine 12 units 06/13/22 22:00 06/15/22 00:12 Insulin Glargine 100 Units/Ml SUB-Q 12 units QHS DAGMAR Administration Insulin Human Regular 0 units 06/11/22 12:00 06/15/22 07:02 Insulin Regular, Human 100 Units/1 Ml SUB-Q 4 units Q6HR DAGMAR Administration Protocol Melatonin 10 mg 06/07/22 22:00 06/15/22 00:15 Melatonin 5 Mg Tab PO Not Given QHS DAGMAR Olanzapine 2.5 mg 06/11/22 22:00 06/15/22 00:33 Olanzapine 2.5 Mg Tab PO Not Given QHS DAGMAR Ondansetron HCl 4 mg 06/07/22 04:36 06/08/22 05:40 Ondansetron 4 Mg/2 Ml Inj IV 4 mg Q8H PRN Administration Nausea And Vomiting Propranolol HCl 10 mg 06/07/22 10:00 06/15/22 00:24 Propranolol 10 Mg Tab PO Not Given BID DAGMAR Risperidone 2 mg 06/07/22 10:00 06/15/22 00:26 Risperidone 1 Mg Tab PO Not Given BID DAGMAR Sodium Chloride 10 ml 06/07/22 10:00 06/15/22 10:00 Sodium Chloride 0.9% 10 Ml Flush Syringe IV Not Given BID DAGMAR Sodium Chloride 10 ml 06/07/22 04:36 Sodium Chloride 0.9% 10 Ml Flush Syringe IV PRN PRN LINE FLUSH Trazodone HCl 150 mg 06/07/22 22:00 06/15/22 00:37 Trazodone 50 Mg Tab PO Not Given QHS [facility] Nutrition/Malnutrition Assess - Dietary Evaluation Nutrition/Malnutrition Findings: Nutrition Notes Start: 06/07/22 09:29 Freq: Status: Active Protocol: Document 06/12/22 12:13 [facility] (Rec: 06/12/22 12:17 [facility] [id number]) Nutrition Notes Initial or Follow up Reassessment Current Diagnosis Diabetes,Hypertension Other Pertinent Diagnosis s/p DKA, metabolic encephalopathy, bipolar d/o, schizophrenia Current Diet Glucerna 1.2 at 60ml/hr Labs/Tests Reviewed Pertinent Medications Reviewed Height 5 ft 6 in Weight 80.2 kg [place] Body Weight (kg) 59.09 BMI 28.5 Weight Status Overweight Subjective/Other Information Pt pulled DHT out and refuses to have it re-inserted; also refusing PO intake. Burn Absent Trauma Absent #2 Nutrition Diagnosis Inadequate oral intake Diagnosis Progress(for reassessment Continues documentation) #1 Nutrition Diagnosis Altered nutrition-related laboratory values As Evidenced by Signs and Symptoms POC Glu labs improving Diagnosis Progress(for reassessment Improved documentation) Is patient on ventilator? No Is Patient Ambulatory and/or Out of Bed No REE-([facility] Jeor-confined to bed) [phone] Calculation Used for Recommendations [facility] Additional Notes Pro needs 0.8-1g/k-80g/ day Fluid needs 1ml/kcal Nutrition Intervention Change Diet Order: Resume PO diet when feasible Goal #1 Resume either PO diet or EN support to meet nutrient needs Follow-Up By: 06/16/22 Additional Comments F/U: PO intake vs re-start of EN support
[2022-06-16] MEDS: INSULIN REGULAR, HUMAN 100 UNITS/1 ML SUB-Q SCH (06:35)
--- NOTE | 2022-06-16 07:59 | Progress Note ---
Assessment and Plan Assessment and plan: Assessment and plan: 57-year-old female with history of diabetes and bipolar disorder and schizophrenia was brought in from care home admitted for DKA Hospital Course: 06/08: Patient remains confused and somnolent but protecting airway. GAP re- opened. Will need to continue insulin gtt. Sodium slowly downtrending, continue D5W + 40 MEQ K infusion. Strict monitoring of sodium so as to not overcorrect. BMP ordered q4hr. Once AG closed, can downgrade to medical floor. 06/09: Patient remain encephalopathic, only arousable to tactile stimuli. Stable on RA, able to protect her airway. UDS pending, mental health was also consulted. Patient also with hypernatremia, continue continue IVF and encourage PO intake. This am labs pending, if anion gap closed will transition to subQ insulin. Worsening thrombocytopenia this am, unclear etiology, no heparin/loveno x given this admit. Will consult hematology for further eval. 06/10: Patient remains lethargic, follow commands intermittently and refusing PO meds, however, accept juice and water. This is most likely secondary to psych issues and patient has not had any of her medication for over 48hrs. Mental he alth/spych consult pending. Patient transitioned to subQ insulin overnight, SSI adjusted. Will insert a DHT for meds and enteral nutrition. Worsen thrombocytopenia, hematology recommendations noted. Pending CT abd/pelvis, will also add CT head/brain to r/o any intracranial abnormality. Royal placed overnight for urinary retention. Hypernatremia improved, agnes hold D5w gtt and continue to monitor electrolytes. 06/11: Patient remains somnolent. Psych team reviewed medications and made some adjustment. I did discuss with the primary care physician at the [facility] the unable to manage the patient requiring NG tube at this time for nutritional status. Considering her condition of diabetes and hyperglycemia we will wanted to be more awake prior to discharge back to the facility. This is likely secondary to her bipolar disorder psych input is appreciated. Platelets appear to be improving imaging studies as documented above did not show any acute pathology. Mildly elevated LFTs we will recheck again in a.m. anticipate discharge in 24 to 48 hours 06/12: Patient seen and examined ammonia level checked actually low. Blood sugar is stable she remains obtunded. We will continue to monitor additional 24 hours of updated primary physician at the [facility]. Avoid all sedatives at this time. She continues to maintain her airway. Continue aspiration precautions 06/13: Patient still obtunded lethargic although moving around more. I had a significant conversation with the physician at the care home who recommends to consider an LTAC is being unable to manage the patient at the [facility]. Consult has been placed. We will start some gentle hydration as patient's urine appears concentrated. Reduce Insulin dose at this time. Remarkable, she woke up later today and asked for food, she is pleasant, AAO X 3 and conversational. Will discontinue the LTAC request and discharge patient back with Law enforcement. Counselling provided. Outpatient Psych recommended 06/14: Patient has been discharged and is medically stable for discharge however her charges were dropped by [facility] no other information of family is available. She is unsafe to be discharged home by herself but states she is homeless per information obtained from the care home. She is still very impulsive. We will request a reevaluation by psych to see if she meets for inpatient the [facility]. 06/15: Patient seen and examined no acute distress, awaiting placement and my understanding is that the by [facility] has a warrant and will be picking her up tomorrow if she remains in house. She has been advised. 06/16: Patient is discharged. [facility] patient judy victoria. Assessment and Plan #Uncontrolled Type II Diabetes Mellitus with Hyperglycemia #Hyperosmolar nonketotic coma - [id number] - s/p DKA protocol - Transitioned to subQ insulin overnight - Hyperglycemic this am, SSI adjusted - Patient refusing PO intake, plan for DHT inserting for meds and feeding - Monitor and replace electrolytes as needed - Monitor anion gap, serial Labs ordered - Nutrition consulted #Acute Metabolic Encephalopathy #H/o Bipolar Disorder and Schizophrenia - etiology likely HHS and severe hypernatremia - S/p DKA protocol, UDS pending - UA only demonstrates +2 glucose, consistent with diagnosis - CT head/brain pending - Encourage PO intake, Continue to trend Na - Home meds resumed - Avoid benzodiazepine to reduce the possibility of delirium - PRN Analgesia for pain control - Maintenance of sleep-wake cycle - Mental health consulted #Acute kidney injury due to vasomotor nephropathy-resolved #Hypernatremia--improved #Hypokalemia- resolved #Metabolic acidosis - Most likely due to DKA - Na: 167 on admission - renal function normalized - Remains on insulin gtt and IVF resuscitation per DKA protocol - Strict intake and output - Avoid nephrotoxic medications; Renally dose medications - Royal in place - Monitor and replace electrolytes as needed #SIRS with Organ Dysfunction (POA)- Resolved - Presented with tachypnea, leukocytosis, metabolic acidosis, and Scr of 2.1 - Most likely due to DKA - s/p DKA protocol. Scr. improved post IVF resuscitation - Remains afebrile, symptoms improved, and VSS - Will continue to monitor #Thrombocytopenia #Polycythemia #Hemoconcentration - Presented with high hgb/hct and normal plt - Dropped in plt this am, unclear etiology - No heparin/Lovenox administered since admit - H&H stable, no s/s of any active bleeding - Hematology Consulted, appreciated - CT abd/pelvsi pending - Hold off AC at this time - Transfuse for hgb less than 7 #Urinary Retention - Bladder scan over 1L retention, royal placed - Britany royal for now, reassess per protocol #Essential hypertension - BP stable - Continue home meds - Continue blood pressure monitor per protocol - Maintain SBP above 160 History Interval history: no acute complaints. Hospitalist Physical - Physical exam Narrative exam: Narrative exam: VITAL SIGNS: Reviewed. GENERAL: The patient appears normally developed, Awake and no acute distress. HEAD: No signs of head trauma. EYES: Pupils are equal. Extraocular motions intact. EARS: Hearing grossly intact. MOUTH: Oropharynx is normal. NECK: No adenopathy, no JVD. CHEST: Chest with clear breath sounds bilaterally. No wheezes, rales, or rhonchi. CARDIAC: Regular rate and rhythm. S1 and S2, without murmurs, gallops, or rubs. VASCULAR: No Edema. Peripheral pulses normal and equal in all extremities. ABDOMEN: Soft, non tender and non distended. No rebound or guarding, and no masses palpated. Bowel Sounds normal. MUSCULOSKELETAL: Good range of motion of all major joints. Extremities without clubbing, cyanosis or edema. NEUROLOGIC EXAM: Moves all extremities, following commands, no sensory or motor deficit noted. speech is normal PSYCHIATRIC: Mood sedated SKIN: detail exam as documented in skin assessment - Constitutional Vitals: Temp Pulse Resp BP Pulse Ox 98.3 F 80 18 110/69 98 06/16/22 00:00 06/16/22 00:00 06/16/22 00:00 06/16/22 00:00 06/16/22 00:00 General appearance: Present: no acute distress, well-nourished, obese Results - Labs CBC & Chem 7: 06/12/22 04:53 06/12/22 04:53 Labs: Laboratory Last Values WBC 5.0 K/mm3 (4.5-11.0) 06/12/22 04:53 RBC 4.62 M/mm3 (3.65-5.03) 06/12/22 04:53 Hgb 14.1 gm/dl (10.1-14.3) 06/12/22 04:53 Hct 41.7 % (30.3-42.9) 06/12/22 04:53 MCV 90 fl (79-97) 06/12/22 04:53 MCH 31 pg (28-32) 06/12/22 04:53 MCHC 34 % (30-34) 06/12/22 04:53 RDW 13.9 % (13.2-15.2) 06/12/22 04:53 Plt Count 55 K/mm3 (140-440) L 06/12/22 04:53 Lymph % (Auto) 11.1 % (13.4-35.0) L 06/08/22 03:51 [place] % (Auto) 5.7 % (0.0-7.3) 06/08/22 03:51 Eos % (Auto) 0.7 % (0.0-4.3) 06/08/22 03:51 Baso % (Auto) 0.2 % (0.0-1.8) 06/08/22 03:51 Lymph # (Auto) 1.2 K/mm3 (1.2-5.4) 06/08/22 03:51 [place] # (Auto) 0.6 K/mm3 (0.0-0.8) 06/08/22 03:51 Eos # (Auto) 0.1 K/mm3 (0.0-0.4) 06/08/22 03:51 Baso # (Auto) 0.0 K/mm3 (0.0-0.1) 06/08/22 03:51 Seg Neutrophils % 82.3 % (40.0-70.0) H 06/08/22 03:51 Seg Neutrophils # 8.7 K/mm3 (1.8-7.7) H 06/08/22 03:51 Fibrinogen 423 mg/dl (211-480) 06/10/22 04:30 Heparin Anti-Xa, Unfract Negative (Negative) 06/10/22 04:30 VBG pH 7.348 (7.320-7.420) 06/07/22 01:47 Sodium 144 mmol/L (137-145) 06/12/22 04:53 Potassium 4.2 mmol/L (3.6-5.0) 06/12/22 04:53 Chloride 107.7 mmol/L (98-107) H 06/12/22 04:53 Carbon Dioxide 28 mmol/L (22-30) 06/12/22 04:53 Anion Gap 13 mmol/L 06/12/22 04:53 BUN 13 mg/dL (7-17) 06/12/22 04:53 Creatinine 0.6 mg/dL (0.6-1.2) 06/12/22 04:53 Estimated GFR > 60 ml/min 06/12/22 04:53 BUN/Creatinine Ratio 22 % 06/12/22 04:53 Glucose 133 mg/dL (65-100) H 06/12/22 04:53 POC Glucose 212 mg/dL (70-105) H 06/15/22 23:17 Calcium 8.6 mg/dL (8.4-10.2) 06/12/22 04:53 Phosphorus 2.70 mg/dL (2.5-4.5) 06/11/22 03:40 Magnesium 2.00 mg/dL (1.7-2.3) 06/11/22 03:40 Iron 89 ug/dL (37-170) 06/10/22 04:30 TIBC 122 mcg/dL (250-450) L 06/10/22 04:30 Ferritin 230.8 ng/mL (10.0-200.0) H 06/10/22 04:30 Total Bilirubin 0.70 mg/dL (0.1-1.2) 06/12/22 04:53 AST 71 units/L (5-40) H 06/12/22 04:53 ALT 120 units/L (7-56) H 06/12/22 04:53 Alkaline Phosphatase 93 units/L (35-129) 06/12/22 04:53 Ammonia < 10.0 umol/L (25-60) L 06/12/22 07:27 Total Protein 4.9 g/dL (6.3-8.2) L 06/12/22 04:53 Albumin 3.1 g/dL (3.9-5) L 06/12/22 04:53 Albumin/Globulin Ratio 1.7 % 06/12/22 04:53 Urine Color [place] (Yellow) 06/07/22 Unknown Urine Turbidity Clear (Clear) 06/07/22 Unknown Urine pH 5.0 (5.0-7.0) 06/07/22 Unknown Ur Specific [place] 1.015 (1.003-1.030) 06/07/22 Unknown Urine Protein 30 mg/dl mg/dL (Negative) 06/07/22 Unknown Urine Glucose (UA) 2+ mg/dL (Negative) 06/07/22 Unknown Urine Ketones Negative mg/dL (Negative) 06/07/22 Unknown Urine Blood Negative (Negative) 06/07/22 Unknown Urine Nitrite Negative (Negative) 06/07/22 Unknown Urine Bilirubin 4+ (Negative) 06/07/22 Unknown Urine Ictotest Negative (Negative) 06/07/22 Unknown Urine Urobilinogen 0.0 mg/dL (<2.0) 06/07/22 Unknown Ur Leukocyte Esterase 1+ (Negative) 06/07/22 Unknown Urine WBC (Auto) 5.0 /HPF (0.0-6.0) 06/07/22 Unknown Urine RBC (Auto) < 1.0 /HPF (0.0-6.0) 06/07/22 Unknown Hyaline Casts 66 /LPF 06/07/22 Unknown Urine Mucus Few /HPF 06/07/22 Unknown Heparin-induced Plt Ab Negative (Negative) 06/10/22 04:30 UF Heparin High Dose 1 % Release 06/10/22 04:30 TONY UFH Low Dose 0.1 0 % Release 06/10/22 04:30 TONY UFH Low Dose 0.5 0 % Release 06/10/22 04:30 Royal/IV: Voiding Method Bedpan Active Medications - Current Medications Current Medications: Generic Name Dose Route Start Last Admin Trade Name Freq PRN Reason Stop Dose Admin Acetaminophen 650 mg 06/07/22 04:36 Acetaminophen 325 Mg Tab PO Q4H PRN Pain MILD(1-3)/Fever >100.5/WHALEY Albuterol 2.5 mg 06/07/22 04:36 Albuterol 2.5 Mg/3 Ml Nebu IH Q3HRT PRN Shortness Of Breath Bupropion HCl 150 mg 06/15/22 10:00 06/15/22 12:00 Bupropion Xl 150 Mg Tab PO Not Given QDAY DAGMAR Dextrose 50 ml 06/09/22 18:02 Dextrose 50% In Water (25gm) 50 Ml Syringe IV Q30MIN PRN Hypoglycemia Protocol Divalproex Sodium 1,000 mg 06/15/22 10:00 06/15/22 23:[address] 500 Mg Tab PO 1,000 mg BID DAGMAR Administration Famotidine 20 mg 06/15/22 10:00 06/15/22 12:00 Famotidine 20 Mg Tab PO Not Given DAILY DAGMAR Fluoxetine HCl 20 mg 06/07/22 10:00 06/15/22 12:00 Fluoxetine 20 Mg Cap PO Not Given QDAY [facility] Sodium Chloride 1,000 mls @ 75 mls/hr 06/13/22 09:15 Nacl 0.9% 1000 Ml IV DIRECT [facility] Insulin Glargine 12 units 06/13/22 22:00 06/15/22 23:22 Insulin Glargine 100 Units/Ml SUB-Q 12 units QHS DAGMAR Administration Insulin Human Regular 0 units 06/11/22 12:00 06/16/22 06:35 Insulin Regular, Human 100 Units/1 Ml SUB-Q Not Given Q6HR [facility] Protocol Melatonin 10 mg 06/07/22 22:00 06/15/22 23:08 Melatonin 5 Mg Tab PO 10 mg QHS DAGMAR Administration Olanzapine 2.5 mg 06/11/22 22:00 06/15/22 23:22 Olanzapine 2.5 Mg Tab PO 2.5 mg QHS DAGMAR Administration Ondansetron HCl 4 mg 06/07/22 04:36 06/08/22 05:40 Ondansetron 4 Mg/2 Ml Inj IV 4 mg Q8H PRN Administration Nausea And Vomiting Propranolol HCl 10 mg 06/07/22 10:00 06/15/22 23:30 Propranolol 10 Mg Tab PO 10 mg BID DAGMAR Administration Risperidone 2 mg 06/07/22 10:00 06/15/22 23:07 Risperidone 1 Mg Tab PO 2 mg BID DAGMAR Administration Sodium Chloride 10 ml 06/07/22 10:00 06/15/22 23:08 Sodium Chloride 0.9% 10 Ml Flush Syringe IV Not Given BID DAGMAR Sodium Chloride 10 ml 06/07/22 04:36 Sodium Chloride 0.9% 10 Ml Flush Syringe IV PRN PRN LINE FLUSH Trazodone HCl 150 mg 06/07/22 22:00 06/15/22 23:06 Trazodone 50 Mg Tab PO 150 mg QHS DAGMAR Administration Nutrition/Malnutrition Assess - Dietary Evaluation Nutrition/Malnutrition Findings: Nutrition Notes Start: 06/07/22 09:29 Freq: Status: Active Protocol: Document 06/12/22 12:13 CLIF (Rec: 06/12/22 12:17 CLIF [id number]) Nutrition Notes Initial or Follow up Reassessment Current Diagnosis Diabetes,Hypertension Other Pertinent Diagnosis s/p DKA, metabolic encephalopathy, bipolar d/o, schizophrenia Current Diet Glucerna 1.2 at 60ml/hr Labs/Tests Reviewed Pertinent Medications Reviewed Height 5 ft 6 in Weight 80.2 kg [place] Body Weight (kg) 59.09 BMI 28.5 Weight Status Overweight Subjective/Other Information Pt pulled DHT out and refuses to have it re-inserted; also refusing PO intake. Burn Absent Trauma Absent #2 Nutrition Diagnosis Inadequate oral intake Diagnosis Progress(for reassessment Continues documentation) #1 Nutrition Diagnosis Altered nutrition-related laboratory values As Evidenced by Signs and Symptoms POC Glu labs improving Diagnosis Progress(for reassessment Improved documentation) Is patient on ventilator? No Is Patient Ambulatory and/or Out of Bed No REE-([place] Jeor-confined to bed) [phone] Calculation Used for Recommendations [place] Additional Notes Pro needs 0.8-1g/k-80g/ day Fluid needs 1ml/kcal Nutrition Intervention Change Diet Order: Resume PO diet when feasible Goal #1 Resume either PO diet or EN support to meet nutrient needs Follow-Up By: 06/16/22 Additional Comments F/U: PO intake vs re-start of EN support
[2022-06-16 08:47] VITALS: BP 102/62
[2022-06-16] MEDS ORDERED: INSULIN REGULAR, HUMAN 100 UNITS/1 ML SUB-Q SCH (11:30)
== END 2022-06-16 10:05 | DRG 637 ==
LOC: EEVIPCON 01:05 → ED 01:05 → CC1 03:06 → 4A 06-10 11:21
PROVIDERS: ADMIT Hospitalist; ATTEND Internal Medicine
DX: E11.01 Type 2 diabetes mellitus with hyperosmolarity with coma (principal); G93.41 Metabolic encephalopathy; N17.0 Acute kidney failure with tubular necrosis; R65.11 Systemic inflammatory response syndrome (SIRS) of non-infectious origin with acute organ dysfunction; E87.0 Hyperosmolality and hypernatremia; E87.6 Hypokalemia; F31.9 Bipolar disorder, unspecified; F20.9 Schizophrenia, unspecified; D75.1 Secondary polycythemia; D69.6 Thrombocytopenia, unspecified; R33.9 Retention of urine, unspecified; Z88.0 Allergy status to penicillin; Z83.3 Family history of diabetes mellitus; Z88.8 Allergy status to other drugs, medicaments and biological substances; Z79.84 Long term (current) use of oral hypoglycemic drugs
CPT/HCPCS: 36415; 70450; 74176; 80048; 80053; 81001; 82140; 82668; 82728; 82805; 82962; 83550; 83735; 84100; 85025; 85027; 85384; 86022; 94640; 94644; G0378; J3490; Q9967; J1815; J2405; J3480; J7030; J7070; J7120